=== PATIENT | male | born 1940 | race Caucasian/White ===

== ENCOUNTER 2017-04-07 01:59 | Emergency (ER) | payer MEDICARE, BC ==
[2017-04-07] MEDS ORDERED: Ketorolac 30 MG/ML SDV IVPUSH ONE (02:22)
[2017-04-07] MEDS ORDERED: Levofloxacin/Dextrose 5%-Water 500 MG in Premix Bag 1 BAG IV ONE (02:23)
[2017-04-07] MEDS ORDERED: Sodium Chloride 0.9% 1,000 ML IV SCH (02:30)
[2017-04-07] MEDS ORDERED: Iopamidol 755 Mg/ML 100 ML Bottle IV SCH (03:00)
[2017-04-07] MEDS ORDERED: Ciprofloxacin 500 MG Tab PO ONE (04:36)
[2017-04-07] MEDS ORDERED: Ketorolac 10 MG Tab PO ONE (04:36)
[2017-04-07 06:12] VITALS: BP 136/82
--- NOTE | 2017-04-07 09:39 | ER ---
DATE SEEN: 04/07/2017 CHIEF COMPLAINT: Flank pain. HISTORY OF PRESENT ILLNESS: A 76-year-old male with right-sided flank pain associated with dysuria and hematuria, started tonight. He had treatment for cancer earlier in the morning today. REVIEW OF SYSTEMS: No fever. No constipation. No nausea or vomiting. ALLERGIES: Reviewed. MEDICATIONS: Please see the nurse's notes. PHYSICAL EXAMINATION: VITAL SIGNS: Blood pressure 182/106, temperature 97.5, and pulse is 89. ABDOMEN: Distended. There is tenderness on the right lower quadrant with rebound, but no rigidity. Bowel sounds are present. LABORATORY DATA: Initial labs showed a white cell count of 11.2. Normal electrolytes. UA showed large blood. Leukocyte esterase, positive. Electrolytes were normal. CT of the abdomen and pelvis is pending. IMPRESSION: Hemorrhagic cystitis. PLAN: 1 L of normal saline. Ketorolac 15 mg IV, and Levaquin 500 mg one time dose. Symptoms improved dramatically. I sent him home on Cipro 500 twice a day and Toradol 10 mg t.i.d. p.r.n. to follow up with PCP in 24 hours. TIME SEEN: 0200 hours. /[id number] HIEN/TERRY
== END 2017-04-07 04:40 | disposition home or self-care (01) ==
LOC: FB.ED 01:59
DX: N30.90 Cystitis, unspecified without hematuria (principal)
CPT/HCPCS: 36415; 74176; 80048; 81001; 85025; 87086; 96365; 96375; 99284; A9270; J1885; J1956; J7040; Q9967; 99283

== ENCOUNTER 2017-11-20 10:50 | Emergency (ER) | payer MEDICARE, BC ==
[2017-11-20] MEDS ORDERED: Ketorolac 30 MG/ML SDV IM ONE (11:09)
--- NOTE | 2017-11-20 11:17 | EDM.PDOC ---
ED HPI GENERAL MEDICAL PROBLEM - General Chief Complaint: Lower Extremity Injury/Pain Stated Complaint: LEG PAIN Time Seen by Provider: 11/20/17 11:00 Source of Information: Reports: Patient History Limitations: Reports: No Limitations - History of Present Illness INITIAL COMMENTS - FREE TEXT/NARRATIVE: 77 yo male was referred by Dr. Calderon to orthopedics in [place] for hip pain. He saw the specialist and had CT's and MRI's and is scheduled for possible biopsy. He has been taking acetaminophen and Tylenol #3 for pain without adequate relief. He has been getting by walking with a walker. Is nearly out of his pain meds. Gets a little dopey with the Tyl #3. Is reluctant to take anything stronger for pain relief. Is not taking ibuprofen. Came to the ER because he could not get a hold of Dr. Calderon. Onset: Gradual Duration: Day(s): Location: Reports: Other (Bilateral groin pain, L > R) Quality: Reports: Ache Severity: Moderate Improves with: Reports: Rest Worsens with: Reports: Movement Context: Reports: Other (unknown cause) Associated Symptoms: Reports: No Other Symptoms Treatments FINANCIAL COMPLIANCE OFFICER: Reports: Other (see below) (Tylenol #3) - Related Data Allergies Allergy/AdvReac Type Severity Reaction Status Date / Time No Known Allergies Allergy Verified 11/20/17 11:15 Home Meds: Home Meds Simvastatin [Simvastatin] 40 mg PO DAILY 01/27/14 [History] metFORMIN [Glucophage] 500 mg PO BID 01/27/14 [History] Naproxen [Naprosyn] 500 mg PO ASDIRECTED PRN 01/13/15 [History] Fesoterodine Fumarate [Toviaz] 8 mg PO DAILY 04/07/17 [History] Tamsulosin HCl [Flomax] 0.4 mg PO DAILY PRN 04/07/17 [History] Hydrocodone/Acetaminophen [[place] 5-325] 1 tab PO Q4H PRN #30 tablet 11/20/17 [Rx ] Past Medical History Genitourinary History: Reports: Other (See Below) Other Genitourinary History: Bladder cancer Social & Family History - Tobacco Use Smoking Status *Q: Never Smoker Second Hand Smoke Exposure: No - Caffeine Use Caffeine Use: Reports: Coffee - Alcohol Use Days Per Week of Alcohol Use: 0 - Recreational Drug Use Recreational Drug Use: No Review of Systems - Review of Systems Review Of Systems: See Below Constitutional: Reports: No Symptoms Nose: Reports: No Symptoms Mouth/Throat: Reports: No Symptoms Respiratory: Reports: No Symptoms Cardiovascular: Reports: No Symptoms GI/Abdominal: Reports: No Symptoms Genitourinary: Reports: No Symptoms Musculoskeletal: Reports: Other (groin pain bilaterally) Skin: Reports: No Symptoms Neurological: Reports: No Symptoms Psychiatric: Reports: No Symptoms ED EXAM, GENERAL - Physical Exam Exam: See Below Exam Limited By: No Limitations General Appearance: Alert, WD/WN, No Apparent Distress Eye Exam: Bilateral Eye: Normal Inspection Ears: Normal External Exam, Normal Canal, Hearing Grossly Normal, Normal TMs Ear Exam: Bilateral Ear: Auricle Normal, Canal Normal, TM normal Nose: Normal Inspection, Normal Mucosa, No Blood Throat/Mouth: Normal Inspection, Normal Lips, Normal Oropharynx, Normal Voice, No Airway Compromise Head: Atraumatic, Normocephalic Neck: Normal Inspection Respiratory/Chest: No Respiratory Distress, Lungs Clear, Normal Breath Sounds, No Accessory Muscle Use Cardiovascular: Regular Rate, Rhythm GI/Abdominal: Other (Obese) Back Exam: Normal Inspection. No: CVA Tenderness (R), CVA Tenderness (L) Extremities: Normal Inspection, Other (Mild hip pain bilat with intact ROM, able to walk slowly) Neurological: Alert, Oriented, CN II-XII Intact, Normal Cognition, No Motor/ Sensory Deficits Psychiatric: Normal Affect, Normal Mood Skin Exam: Warm, Dry, Intact, Normal Color, No Rash Lymphatic: No Adenopathy Course - Vital Signs Text/Narrative:: Toradol 30 mg IM, [place] 1 po-feeling a lot better after these. Last Recorded V/S: Last Vital Signs Temp 36.5 C 11/20/17 10:55 Pulse 92 11/20/17 10:55 Resp 18 11/20/17 12:12 BP 161/93 H 11/20/17 12:12 Pulse Ox 99 11/20/17 12:12 - Orders/Labs/Meds Meds: Medications Discontinued Medications Generic Name Dose Route Start Last Admin Trade Name Freq PRN Reason Stop Dose Admin Hydrocodone Bitart/Acetaminophen 1 tab 11/20/17 11:18 11/20/17 11:24 [place] 325-5 Mg PO 11/20/17 11:19 1 tab ONETIME ONE Administration Ketorolac Tromethamine 30 mg 11/20/17 11:09 11/20/17 11:25 Toradol IM 11/20/17 11:10 30 mg ONETIME ONE Administration Departure - Departure Time of Disposition: 12:15 Disposition: Home, Self-Care 01 Condition: Good Clinical Impression: Pelvic pain in male - Discharge Information Prescriptions: Hydrocodone/Acetaminophen [[place] 5-325] 1 tab PO Q4H PRN #30 tablet PRN Reason: Pain Referrals: Jerome Calderon MD [Primary Care Provider] - Forms: ED Department Discharge
[2017-11-20] MEDS ORDERED: Acetaminophen/HYDROcodone 325-5 MG Tab PO ONE (11:18)
[2017-11-20 12:13] VITALS: BP 161/93
== END 2017-11-20 12:38 | disposition home or self-care (01) ==
LOC: FB.ED 10:50
DX: R10.2 Pelvic and perineal pain (principal)
CPT/HCPCS: 96372; 99282; A9270; J1885; 99283

== ENCOUNTER 2017-11-25 22:51 | Inpatient (IN) | payer MEDICARE, BC ==
[2017-11-25] MEDS ORDERED: Sodium Chloride 0.9% 1,000 ML IV SCH (23:15)
[2017-11-25] MEDS ORDERED: Iopamidol 755 Mg/ML 100 ML Bottle IV ONE (23:32)
[2017-11-26] MEDS: LORazepam 0.5 MG Tab PO PRN ×2 (01:20→19:59)
[2017-11-26] MEDS: Ketorolac 30 MG/ML SDV IVPUSH PRN ×3 (01:25→18:35)
[2017-11-26] MEDS: Enoxaparin 30 MG/0.3 ML Syringe SUBCUT SCH (01:30)
--- NOTE | 2017-11-26 03:53 | ER ---
DATE SEEN: 11/25/2017 CHIEF COMPLAINT: Hip pain. HISTORY OF PRESENT ILLNESS: This is a 77-year-old male who came in by ambulance. He complains of severe pain in the left groin and left lower quadrant abdominal pain. These symptoms have been going on since the beginning of the year, perhaps even longer. He was seen in the ER on the in [place] and had a CAT scan that was negative, but there was some concern on an MRI that he has had previously with pelvic lymphadenopathy. He had an IR biopsy yesterday, but his pain today got worse to the point that he was unable to move. Does not seem to radiate anywhere. PAST MEDICAL HISTORY: Type 2 diabetes, diverticulosis, hyperlipidemia. ALLERGIES: No known allergies. PHYSICAL EXAMINATION: GENERAL: He is not in distress. VITAL SIGNS: Blood pressure 176/94, pulse is 92. MUSCULOSKELETAL: Examination reveals tenderness in the left trochanteric bursa. ABDOMEN: Soft with tenderness in the left lower quadrant. MENTAL STATUS: Alert. LABORATORY DATA: I reviewed the labs that were done at [place] including the CT scan and ER record from the . IMPRESSION: 1. Pelvic pain, left. 2. Groin pain. PLAN: We will admit the patient for further treatment and pain control. I will order a CBC, basic profile, CT scan, and amylase. Please see history and physical for more details of the admission. TIME SEEN: 2300 hours. /[id number] HIEN/TERRY
[2017-11-26] MEDS: traMADol 50 MG Tab PO PRN ×4 (05:03→21:23)
[2017-11-26] MEDS ORDERED: Triamcinolone Acetonide 40 MG/ML 1 ML MDV ONE (05:05)
[2017-11-26] MEDS ORDERED: Triamcinolone Acetonide 40 MG/ML 1 ML MDV IBURSA ONE (07:30)
[2017-11-26] MEDS ORDERED: Lidocaine 2% 10 ML Amp INJECT ONE (07:30)
[2017-11-26] MEDS ORDERED: Lidocaine 2% 20 ML MDV INJECT ONE (08:30)
--- NOTE | 2017-11-26 08:53 | PCM.HP ---
H&P History of Present Illness - General Date of Service: 11/26/17 Admit Problem/Dx: Admission Diagnosis/Problem Admission Diagnosis/Problem Hip pain Source of Information: Patient, Old Records - History of Present Illness Initial Comments - Free Text/Narative: 77-year-old male I personally admitted last night through the ER because of pelvic and left hip pain. The symptoms are chronic. He was seen at [place] [facility] 2 weeks ago no acute findings were found to explain the pain- however he had pelvic lymphadenopathy. Subsequently 2 days ago he had interventional radiology biopsy,and results of pending those lymph nodes. At home last night, he was unable to move because of the pain.He called the ambulance- the pain is significant on any ambulation or movement ,but it's improved by ketorolac.Of note, He was the ER 2 days ago and was given Tylenol 3 but does not recent help. He denies trauma. He has no constipation or diarrhea & no fever chills. He has a history of BPH,prostate cancer years ago,anxiety ostensibly stable. Left Groin Pain Score (Numeric/FACES): 5 - Related Data Allergies/Adverse Reactions: Allergies Allergy/AdvReac Type Severity Reaction Status Date / Time No Known Allergies Allergy Verified 11/20/17 11:15 Home Medications: Home Meds Simvastatin [Simvastatin] 40 mg PO DAILY 01/27/14 [History] metFORMIN [Glucophage] 500 mg PO BID 01/27/14 [History] Naproxen [Naprosyn] 500 mg PO ASDIRECTED PRN 01/13/15 [History] Fesoterodine Fumarate [Toviaz] 8 mg PO DAILY 04/07/17 [History] Hydrocodone/Acetaminophen [[place] 5-325] 1 tab PO Q4H PRN #30 tablet 11/20/17 [Rx ] Past Medical History Cardiovascular History: Reports: High Cholesterol Gastrointestinal History: Reports: Colon Polyp Genitourinary History: Reports: Other (See Below) Other Genitourinary History: Bladder cancer Endocrine/Metabolic History: Reports: Diabetes, Type II Oncologic (Cancer) History: Reports: Bladder, Other (See Below) Other Oncologic History: skin - Infectious Disease History Infectious Disease History: Reports: Rheumatic Fever - Past Surgical History GI Surgical History: Reports: Colonoscopy Male Surgical History: Reports: Other (See Below) Other Male Surgeries/Procedures: laser prostatem surgery-10 years ago Musculoskeletal Surgical History: Reports: Other (See Below) Other Musculoskeletal Surgeries/Procedures:: lumbar fusion 1965 Oncologic Surgical History: Reports: Other (See Below) Other Oncologic Surgeries/Procedures: bladder biopsy Dermatological Surgical History: Reports: Other (See Below) Social & Family History - Family History Family Medical History: Noncontributory - Tobacco Use Smoking Status *Q: Never Smoker Used Tobacco, but Quit: Yes Month Tobacco Last Used: unknown Second Hand Smoke Exposure: No - Caffeine Use Caffeine Use: Reports: Coffee Caffeine Use Comment: 2 cups a day - Alcohol Use Days Per Week of Alcohol Use: 0 - Recreational Drug Use Recreational Drug Use: No H&P Review of Systems - Review of Systems: Review Of Systems: ROS reveals no pertinent complaints other than HPI. Exam - Exam Exam: See Below - Vital Signs Vital Signs: Last Vital Signs Temp 97.5 F 11/25/17 23:27 Pulse 78 11/25/17 23:27 Resp 18 11/25/17 23:27 BP 143/89 H 11/25/17 23:27 Pulse Ox 94 L 11/25/17 23:27 Weight: 113.988 kg - Exam General: Alert, Oriented, 4 HEENT: PERRLA, Hearing Intact, Mucosa Moist & [place], Nares Patent, Normal Nasal Septum, Posterior Pharynx Clear, Conjunctiva Clear, EOMI, EACs Clear, TMs Clear Neck: Supple, Trachea Midline, 2 Lungs: Clear to Auscultation, Normal Respiratory Effort Cardiovascular: Regular Rate, Regular Rhythm GI/Abdominal Exam: Tender (LLQ) (Male) Exam: No Hernia, Normal Inspection, Normal Prostate, Circumcised Rectal (Males) Exam: Normal Exam, Normal Rectal Tone, Prostate Normal Back Exam: Normal Inspection, Full Range of Motion, NT Extremities: Other (Tender left Trochanteric Bursa). No: Pedal Edema Skin: Warm, Dry, Intact Neurological: Cranial Nerves Intact, Reflexes Equal Bilateral Neuro Extensive - Mental Status: Alert, Oriented x3, Normal Mood/Affect, Normal Cognition Neuro Extensive - Motor, Sensory, Reflexes: CN II-XII Intact, Normal Gait, Normal Reflexes Psychiatric: Alert, Normal Affect, Normal Mood - Patient Data Lab Results Last 24 hrs: Laboratory Results - last 24 hr 11/26/17 Range/Units 06:28 POC Glucose 136 H (80-116) mg/dL Result Diagrams: 11/25/17 23:20 11/25/17 23:20 *Q Meaningful Use (ADM) - VTE *Q VTE Criteria *Q: - Stroke *Q Stroke Criteria *Q: - AMI *Q AMI Criteria *Q: - Problem List (1) LLQ abdominal pain SNOMED Code(s): 580448289 ICD Code: R10.32 - LEFT LOWER QUADRANT PAIN Status: Acute Current Visit: Yes (2) Trochanteric bursitis of left hip SNOMED Code(s): 0611886 ICD Code: M70.62 - TROCHANTERIC BURSITIS, LEFT HIP Status: Acute Current Visit: Yes (3) Diverticulosis SNOMED Code(s): 81922330 ICD Code: K57.90 - DVRTCLOS OF INTEST, PART UNSP, W/O PERF OR ABSCESS W/O BLEED Status: Acute Current Visit: Yes Qualifiers: Diverticulosis site: diverticulosis of large intestine (4) Obesity SNOMED Code(s): 409697659 ICD Code: E66.9 - OBESITY, UNSPECIFIED Status: Acute Current Visit: Yes (5) KIERA (generalized anxiety disorder) SNOMED Code(s): 94229083 ICD Code: F41.1 - GENERALIZED ANXIETY DISORDER Status: Acute Current Visit: Yes (6) BPH (benign prostatic hyperplasia) SNOMED Code(s): 875554007 ICD Code: N40.0 - BENIGN PROSTATIC HYPERPLASIA WITHOUT LOWER URINRY TRACT SYMP Status: Acute Current Visit: Yes Qualifiers: Lower urinary tract symptom presence: symptoms present (7) Pelvic lymphadenopathy SNOMED Code(s): 496560352 ICD Code: R59.0 - LOCALIZED ENLARGED LYMPH NODES Status: Acute Current Visit: Yes (8) HLD (hyperlipidemia) SNOMED Code(s): 30656474 ICD Code: E78.5 - HYPERLIPIDEMIA, UNSPECIFIED Status: Acute Current Visit : Yes Problem List Initiated/Reviewed/Updated: Yes Orders Last 24hrs: Active Orders 24 hr Category Date Time Status LORazepam [Ativan] Med 11/26/17 00:32 Active 0.5 mg PO Q4H PRN Medication Orders Enoxaparin Sodium (Lovenox) 30 mg SUBCUT Q24H [facility] Last Admin: 11/26/17 01:30 Dose: 30 mg Sodium Chloride (Normal Saline) 1,000 mls @ 125 mls/hr IV ASDIRECTED TOMMY Last Admin: 11/26/17 01:18 Dose: 125 mls/hr Ketorolac Tromethamine (Toradol) 15 mg IVPUSH Q6H PRN PRN Reason: Breakthrough Pain Stop: 11/30/17 23:30 Last Admin: 11/26/17 01:25 Dose: 15 mg Lorazepam (Ativan) 0.5 mg PO Q4H PRN PRN Reason: Anxiety Last Admin: 11/26/17 01:20 Dose: 0.5 mg Tramadol HCl (Ultram) 50 mg PO Q4H PRN PRN Reason: Pain Last Admin: 11/26/17 05:03 Dose: 50 mg Assessment/Plan Comment:: He has localized tenderness in the left trochanteric bursa. I'm convinced that he pain is due to the fact. I reviewed an x-ray that was done at [place], that was negative for any arthritis Of the hip. The left lower quadrant pain is cryptic. Etiology at this time is unlear. The CT done in [place] on the ly showed pelvic lymphadenopathy, and advanced diverticulosis without evidence of diverticulitis. For now I'll treat his pain with ketorolac I will discontinue the IV fluids. I discussed indications of a corticosteroid injection to the left hip trochanteric bursa area,as well as reasonable alternatives, and he accepted. I prepped the area, injected 80 mg of Kenalog mixed with 2% lidocaine into the left trochanteric bursa. There were no complications .I will ask physical therapy to see him tomorrow for ambulation and strengthening. I will do a CT scan today of the pelvis and abdomen to rule out diverticulitis or any other new pathology.
[2017-11-26] MEDS: Sodium Chloride 0.9% 10 ML Syringe FLUSH PRN ×3 (09:32→22:32)
[2017-11-26] MEDS: Insulin Aspart 100 Units/ML 3 ML Pen SUBCUT SCH ×2 (11:31→17:30)
[2017-11-26] MEDS: Morphine 2 MG/ML Syringe IVPUSH PRN (22:33)
[2017-11-27] MEDS: Enoxaparin 30 MG/0.3 ML Syringe SUBCUT SCH (00:32)
[2017-11-27] MEDS: Ketorolac 30 MG/ML SDV IVPUSH PRN (00:33)
[2017-11-27] MEDS: Sodium Chloride 0.9% 10 ML Syringe FLUSH PRN ×4 (00:35→21:41)
[2017-11-27] MEDS: Morphine 2 MG/ML Syringe IVPUSH PRN (06:11)
[2017-11-27] MEDS: Insulin Aspart 100 Units/ML 3 ML Pen SUBCUT SCH ×3 (08:56→18:18)
[2017-11-27] MEDS: traMADol 50 MG Tab PO PRN ×4 (09:04→23:58)
[2017-11-27] MEDS: Ketorolac 15 MG/ML SDV IVPUSH PRN ×3 (09:05→21:40)
[2017-11-27] MEDS: LORazepam 0.5 MG Tab PO PRN ×3 (09:05→23:59)
--- NOTE | 2017-11-27 09:31 | PCM.PN ---
- General Info Date of Service: 11/27/17 Subjective Update: Patient's still has pain but it's mostly on ambulation. Is able to stand move with a walker with one assist. No new symptoms this morning. Functional Status: Reports: Pain Controlled - Review of Systems General: Reports: No Symptoms HEENT: Reports: No Symptoms Pulmonary: Reports: No Symptoms Cardiovascular: Reports: No Symptoms Gastrointestinal: Reports: No Symptoms - Patient Data Vitals - Most Recent: Last Vital Signs Temp 98.5 F 11/27/17 06:00 Pulse 82 11/27/17 06:00 Resp 18 11/27/17 06:00 BP 165/103 H 11/27/17 06:00 Pulse Ox 97 11/27/17 06:00 Weight - Most Recent: 112.128 kg I&O - Last 24 Hours: Intake & Output 11/26/17 11/27/17 11/27/17 22:59 06:59 14:59 Intake Total 300 Output Total 350 275 Balance -350 25 Lab Results Last 24 Hours: Laboratory Results - last 24 hr 11/26/17 11/26/17 11/27/17 Range/Units 11:27 17:27 06:03 POC Glucose 118 H 122 H 114 (80-116) mg/dL Med Orders - Current: Current Medications Enoxaparin Sodium (Lovenox) 40 mg SUBCUT Q24H TOMMY Insulin Aspart (Novolog) 0 unit SUBCUT TIDMEALS TOMMY PRN Reason: Protocol Last Admin: 11/27/17 08:56 Dose: Not Given Ketorolac Tromethamine (Toradol) 15 mg IVPUSH Q6H PRN PRN Reason: Breakthrough Pain Stop: 11/30/17 23:30 Last Admin: 11/27/17 09:05 Dose: 15 mg Lorazepam (Ativan) 0.5 mg PO Q4H PRN PRN Reason: Anxiety Last Admin: 11/27/17 09:05 Dose: 0.5 mg Morphine Sulfate (Morphine) 2 mg IVPUSH Q4H PRN PRN Reason: Pain Last Admin: 11/27/17 06:11 Dose: 2 mg Sodium Chloride (Saline Flush) 10 ml FLUSH ASDIRECTED PRN PRN Reason: Keep Vein Open Last Admin: 11/27/17 09:05 Dose: 10 ml Tramadol HCl (Ultram) 50 mg PO Q4H PRN PRN Reason: Pain Last Admin: 11/27/17 09:04 Dose: 50 mg Discontinued Medications Enoxaparin Sodium (Lovenox) 30 mg SUBCUT Q24H [facility] Last Admin: 11/27/17 00:32 Dose: 30 mg Sodium Chloride (Normal Saline) 1,000 mls @ 125 mls/hr IV ASDIRECTED [facility] Last Admin: 11/26/17 01:18 Dose: 125 mls/hr Iopamidol (Isovue-370 (76%)) 100 ml IV . DIRECTED ONE Stop: 11/25/17 23:33 Last Admin: 11/26/17 11:08 Dose: 100 ml Ketorolac Tromethamine (Toradol) 15 mg IVPUSH Q6H PRN PRN Reason: Breakthrough Pain Stop: 11/30/17 23:30 Last Admin: 11/27/17 00:33 Dose: 15 mg Lidocaine HCl (Xylocaine-Mpf 2% (Sterile-Dustin)) 10 ml INJECT ONETIME ONE Stop: 11/26/17 07:31 Last Admin: 11/26/17 08:40 Dose: Not Given Lidocaine HCl (Xylocaine 2%) 10 ml INJECT ONETIME ONE Stop: 11/26/17 08:31 Last Admin: 11/26/17 08:29 Dose: 10 ml Triamcinolone Acetonide (Kenalog-40) 80 mg IBURSA ONETIME ONE Stop: 11/26/17 07:31 Last Admin: 11/26/17 08:21 Dose: 80 mg Triamcinolone Acetonide (Kenalog-40) Confirm Administered Dose 80 mg .ROUTE .STK -MED ONE Stop: 11/26/17 05:06 Last Admin: 11/26/17 07:06 Dose: Not Given - Exam General: Alert, Oriented HEENT: Pupils Equal Neck: Supple - Problem List & Annotations (1) LLQ abdominal pain SNOMED Code(s): 485417267 Code(s): R10.32 - LEFT LOWER QUADRANT PAIN Status: Acute Current Visit: Yes (2) Trochanteric bursitis of left hip SNOMED Code(s): 5473111 Code(s): M70.62 - TROCHANTERIC BURSITIS, LEFT HIP Status: Acute Current Visit: Yes (3) Diverticulosis SNOMED Code(s): 92623515 Code(s): K57.90 - DVRTCLOS OF INTEST, PART UNSP, W/O PERF OR ABSCESS W/O BLEED Status: Acute Current Visit: Yes Qualifiers: Diverticulosis site: diverticulosis of large intestine (4) Obesity SNOMED Code(s): 913050715 Code(s): E66.9 - OBESITY, UNSPECIFIED Status: Acute Current Visit: Yes (5) KIERA (generalized anxiety disorder) SNOMED Code(s): 23614972 Code(s): F41.1 - GENERALIZED ANXIETY DISORDER Status: Acute Current Visit : Yes (6) BPH (benign prostatic hyperplasia) SNOMED Code(s): 551517588 Code(s): N40.0 - BENIGN PROSTATIC HYPERPLASIA WITHOUT LOWER URINRY TRACT SYMP Status: Acute Current Visit: Yes Qualifiers: Lower urinary tract symptom presence: symptoms present (7) Pelvic lymphadenopathy SNOMED Code(s): 969353778 Code(s): R59.0 - LOCALIZED ENLARGED LYMPH NODES Status: Acute Current Visit: Yes (8) HLD (hyperlipidemia) SNOMED Code(s): 50056569 Code(s): E78.5 - HYPERLIPIDEMIA, UNSPECIFIED Status: Acute Current Visit : Yes - Problem List Review Problem List Initiated/Reviewed/Updated: Yes - My Orders Last 24 Hours: My Active Orders 11/26/17 09:28 Sodium Chloride 0.9% [Saline Flush] 10 ml FLUSH ASDIRECTED PRN 11/26/17 12:00 Insulin Aspart [NovoLOG] See Protocol SUBCUT TIDMEALS 11/27/17 08:00 Ketorolac [Toradol] 15 mg IVPUSH Q6H PRN 11/27/17 09:21 FREE PSA BATTERY [REF] Routine PROTEIN ELECTROPHORESIS,SERUM [REF] Routine 11/27/17 21:00 Enoxaparin [Lovenox] 40 mg SUBCUT Q24H - Plan Plan:: I called [facility] and spoke to the hospitalist Dr. Palacios. 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 After discussion with the radiologist and oncologist, they've advised me to keep him if one more day until the final report is out possibly tomorrow. At that time they can which admission service to tkae him,and to [facility].For now we'll keep him on pain medication until that time. Dr. Palacios recommended obtain serum electrophoresis and a PSA in addition to the workup he has had.
[2017-11-27] MEDS: Magnesium Hydroxide 400 MG/5 ML Susp 30 ML Cup PO PRN (20:53)
[2017-11-27] MEDS ORDERED: Enoxaparin 40 MG/0.4 ML Syringe SUBCUT SCH (21:00)
[2017-11-28] MEDS: Morphine 2 MG/ML Syringe IVPUSH PRN (04:48)
[2017-11-28] MEDS: traMADol 50 MG Tab PO PRN ×2 (04:49→08:37)
[2017-11-28] MEDS: Sodium Chloride 0.9% 10 ML Syringe FLUSH PRN ×2 (04:49→06:49)
[2017-11-28] MEDS: Ketorolac 15 MG/ML SDV IVPUSH PRN (06:48)
[2017-11-28] MEDS: Insulin Aspart 100 Units/ML 3 ML Pen SUBCUT SCH (08:29)
[2017-11-28] MEDS: Magnesium Hydroxide 400 MG/5 ML Susp 30 ML Cup PO PRN (08:36)
[2017-11-28] MEDS: LORazepam 0.5 MG Tab PO PRN (08:36)
--- NOTE | 2017-11-28 09:23 | PCM.PN ---
- General Info Date of Service: 11/28/17 Subjective Update: Patient very tearful this morning. His pain is still the same and is unable to support himself without a walker or assistance. - Review of Systems General: Reports: No Symptoms HEENT: Reports: No Symptoms Pulmonary: Reports: No Symptoms - Patient Data Vitals - Most Recent: Last Vital Signs Temp 98.2 F 11/28/17 00:05 Pulse 83 11/28/17 00:05 Resp 18 11/28/17 00:05 BP 162/106 H 11/28/17 00:05 Pulse Ox 94 L 11/28/17 00:05 Weight - Most Recent: 112.236 kg I&O - Last 24 Hours: Intake & Output 11/27/17 11/28/17 11/28/17 22:59 06:59 14:59 Intake Total 100 440 Output Total 100 100 50 Balance -100 0 390 Lab Results Last 24 Hours: Laboratory Results - last 24 hr 11/27/17 11/27/17 11/28/17 Range/Units 13:57 17:30 07:46 POC Glucose 172 H 109 130 H (80-116) mg/dL Med Orders - Current: Current Medications Enoxaparin Sodium (Lovenox) 40 mg SUBCUT Q24H TOM[facility] Last Admin: 11/27/17 20:53 Dose: 40 mg Insulin Aspart (Novolog) 0 unit SUBCUT TIDMEALS [facility]OM[facility] PRN Reason: Protocol Last Admin: 11/28/17 08:29 Dose: Not Given Ketorolac Tromethamine (Toradol) 15 mg IVPUSH Q6H PRN PRN Reason: Breakthrough Pain Stop: 11/30/17 23:30 Last Admin: 11/28/17 06:48 Dose: 15 mg Lorazepam (Ativan) 0.5 mg PO Q4H PRN PRN Reason: Anxiety Last Admin: 11/28/17 08:36 Dose: 0.5 mg Magnesium Hydroxide (Milk Of Magnesia) 30 ml PO DAILY PRN PRN Reason: Constipation Last Admin: 11/28/17 08:36 Dose: 30 ml Morphine Sulfate (Morphine) 2 mg IVPUSH Q4H PRN PRN Reason: Pain Last Admin: 11/28/17 04:48 Dose: 2 mg Sodium Chloride (Saline Flush) 10 ml FLUSH ASDIRECTED PRN PRN Reason: Keep Vein Open Last Admin: 11/28/17 06:49 Dose: 10 ml Tramadol HCl (Ultram) 50 mg PO Q4H PRN PRN Reason: Pain Last Admin: 11/28/17 08:37 Dose: 50 mg Discontinued Medications Enoxaparin Sodium (Lovenox) 30 mg SUBCUT Q24H [facility] Last Admin: 11/27/17 00:32 Dose: 30 mg Sodium Chloride (Normal Saline) 1,000 mls @ 125 mls/hr IV ASDIRECTED [facility] Last Admin: 11/26/17 01:18 Dose: 125 mls/hr Iopamidol (Isovue-370 (76%)) 100 ml IV . DIRECTED ONE Stop: 11/25/17 23:33 Last Admin: 11/26/17 11:08 Dose: 100 ml Ketorolac Tromethamine (Toradol) 15 mg IVPUSH Q6H PRN PRN Reason: Breakthrough Pain Stop: 11/30/17 23:30 Last Admin: 11/27/17 00:33 Dose: 15 mg Lidocaine HCl (Xylocaine-Mpf 2% (Sterile-Dustin)) 10 ml INJECT ONETIME ONE Stop: 11/26/17 07:31 Last Admin: 11/26/17 08:40 Dose: Not Given Lidocaine HCl (Xylocaine 2%) 10 ml INJECT ONETIME ONE Stop: 11/26/17 08:31 Last Admin: 11/26/17 08:29 Dose: 10 ml Triamcinolone Acetonide (Kenalog-40) 80 mg IBURSA ONETIME ONE Stop: 11/26/17 07:31 Last Admin: 11/26/17 08:21 Dose: 80 mg Triamcinolone Acetonide (Kenalog-40) Confirm Administered Dose 80 mg .ROUTE .STK -MED ONE Stop: 11/26/17 05:06 Last Admin: 11/26/17 07:06 Dose: Not Given - Exam General: Alert, Oriented Neck: Supple Psy/Mental Status: Depressed - Problem List & Annotations (1) LLQ abdominal pain SNOMED Code(s): 852372373 Code(s): R10.32 - LEFT LOWER QUADRANT PAIN Status: Acute Current Visit: Yes (2) Trochanteric bursitis of left hip SNOMED Code(s): 6492749 Code(s): M70.62 - TROCHANTERIC BURSITIS, LEFT HIP Status: Acute Current Visit: Yes (3) Diverticulosis SNOMED Code(s): 64650836 Code(s): K57.90 - DVRTCLOS OF INTEST, PART UNSP, W/O PERF OR ABSCESS W/O BLEED Status: Acute Current Visit: Yes Qualifiers: Diverticulosis site: diverticulosis of large intestine (4) Obesity SNOMED Code(s): 146580352 Code(s): E66.9 - OBESITY, UNSPECIFIED Status: Acute Current Visit: Yes (5) KIERA (generalized anxiety disorder) SNOMED Code(s): 12865481 Code(s): F41.1 - GENERALIZED ANXIETY DISORDER Status: Acute Current Visit : Yes (6) BPH (benign prostatic hyperplasia) SNOMED Code(s): 541929443 Code(s): N40.0 - BENIGN PROSTATIC HYPERPLASIA WITHOUT LOWER URINRY TRACT SYMP Status: Acute Current Visit: Yes Qualifiers: Lower urinary tract symptom presence: symptoms present (7) Pelvic lymphadenopathy SNOMED Code(s): 176430527 Code(s): R59.0 - LOCALIZED ENLARGED LYMPH NODES Status: Acute Current Visit: Yes (8) HLD (hyperlipidemia) SNOMED Code(s): 25635942 Code(s): E78.5 - HYPERLIPIDEMIA, UNSPECIFIED Status: Acute Current Visit : Yes - Problem List Review Problem List Initiated/Reviewed/Updated: Yes - My Orders Last 24 Hours: My Active Orders 11/27/17 10:05 FREE PSA BATTERY [REF] Routine PROTEIN ELECTROPHORESIS,SERUM [REF] Routine 11/27/17 19:38 Magnesium Hydroxide [Milk of Magnesia] 30 ml PO DAILY PRN 11/27/17 21:00 Enoxaparin [Lovenox] 40 mg SUBCUT Q24H - Plan Plan:: I checked the [facility] chart and noticed that the pathology restuls 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 I called urology who recommended consultation with oncology. I will have a discussion with the hospitalist and will be transferring the patient to [place] for further testing/treatment
[2017-11-28 09:38] VITALS: BP 138/96
--- NOTE | 2017-11-28 16:55 | DISCH ---
DISCHARGE DATE: 11/28/2017 REASON FOR ADMISSION: 1. Pelvic pain. 2. History of bladder cancer.Recurring Now 3. Trochanteric bursitis. DISCHARGE DIAGNOSES: 1. Pelvic pain. Secondary to Metastasstais 2. History of bladder cancer. 3. Trochanteric bursitis. CONSULTATIONS: Hematology/Oncology. BRIEF HISTORY: This is a 77-year-old male who recently has had chronic pain in the left lower quadrant of the abdomen and the left hip. He was admitted through the ER because of worsening pain and inability to ambulate independently. 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 A CT that was done here in the hospital revealed some sclerotic lesions in the acetabulum. I consulted with Oncology, and they preferred the patient to be transferred for further workup with bone scan, perhaps another biopsy at [place]. I spent more than 35 minutes in the discharge of the patient. /[id number] HIEN/TERRY LIMON
== END 2017-11-28 11:05 | DRG 687 ==
LOC: FB.ED 22:51 → UNDOADMIN 23:22 → FB.MS 23:22
PROVIDERS: ADMIT Family Medicine; ATTEND Family Medicine
PROC: 3E0U33Z Introduction of Anti-inflammatory into Joints, Percutaneous Approach (ICD-10-PCS; principal; 2017-11-26)
PROC: 3E0U3BZ Introduction of Anesthetic Agent into Joints, Percutaneous Approach (ICD-10-PCS; 2017-11-26)
DX: M25.552 Pain in left hip (principal); C67.9 Malignant neoplasm of bladder, unspecified; C79.9 Secondary malignant neoplasm of unspecified site; R59.0 Localized enlarged lymph nodes; M70.62 Trochanteric bursitis, left hip; E11.9 Type 2 diabetes mellitus without complications; Z79.84 Long term (current) use of oral hypoglycemic drugs; E78.5 Hyperlipidemia, unspecified; K57.90 Diverticulosis of intestine, part unspecified, without perforation or abscess without bleeding; N40.0 Benign prostatic hyperplasia without lower urinary tract symptoms; R10.2 Pelvic and perineal pain; R10.32 Left lower quadrant pain; E66.9 Obesity, unspecified; F41.1 Generalized anxiety disorder; Z68.35 Body mass index [BMI] 35.0-35.9, adult; Z98.1 Arthrodesis status
CPT/HCPCS: 36415; 71260; 74177; 80048; 82150; 82962; 83605; 84153; 84154; 84165; 85025; 85651; 97116-GP; 97140-GP; 97161-GP; 97166-GO; 97535-GO; 99283; 99285; A9270-GY; J1650; J1885; J2270; J3301; J7030; J7050; Q9967

== ENCOUNTER 2017-12-07 08:08 | Inpatient (IN) | payer MEDICARE, BC ==
[2017-12-07] MEDS: Aluminum Hydroxide/Magnesium Hydroxide Susp 30 ML Cup PO PRN ×2 (16:48→22:16)
[2017-12-07] MEDS: Enoxaparin 30 MG/0.3 ML Syringe SUBCUT SCH (20:53)
[2017-12-07] MEDS: Morphine 30 MG Tab.ER PO SCH (20:54)
[2017-12-07] MEDS: Simvastatin 20 MG Tab PO SCH (20:54)
[2017-12-07] MEDS: LORazepam 0.5 MG Tab PO PRN (22:17)
[2017-12-08] MEDS: Aluminum Hydroxide/Magnesium Hydroxide Susp 30 ML Cup PO PRN (01:47)
[2017-12-08] MEDS: oxyCODONE 5 MG Tab PO PRN ×2 (01:48→08:17)
[2017-12-08] MEDS: Calcium Carbonate/Vitamin D3 1250 MG-200 Unit Tab PO SCH ×2 (08:20→18:59)
[2017-12-08] MEDS: Dexamethasone 4 MG Tab PO SCH (08:21)
[2017-12-08] MEDS: Fesoterodine Fumarate 4 MG Tab PO SCH (08:22)
[2017-12-08] MEDS: OLANZapine 5 MG Tab PO SCH (08:22)
[2017-12-08] MEDS: Morphine 30 MG Tab.ER PO SCH ×2 (08:47→20:47)
--- NOTE | 2017-12-08 09:24 | PREOP ---
ADMISSION DATE: 12/07/2017 REASON FOR VISIT: Metastatic bladder cancer, rehab, and intervention. HISTORY OF PRESENT ILLNESS: Vidal Marion is a 77-year-old male, [place], [place] resident, was a transfer from [facility] to [facility]Note 3] for swing bed and rehab therapy. Recent complicated pain resulted in diagnosis of metastatic bladder cancer with bone metastasis, accompanying he had left hip pain secondary to metastatic disease, weakness, and deconditioning. Please see discharge hospital summary, 11/28/2017 to 12/07/2017. Dr. Leonardo Quintana, Hematology, Oncology, Internal Medicine, primary provider. Completed his course of radiation, chemotherapy will be planned for a weekly basis. Feeling much better, strength is improving, comfort and well being included. DISCHARGE MEDICATIONS: Please see med recon list per [facility]. Includin. Calcium citrate. 2. Dexamethasone. 3. Magnesium hydroxide. 4. Morphine sulfate. 5. Zofran. 6. Oxycodone immediate release. 7. MiraLax powder. 8. Compazine for nausea. 9. Senna-S stool softener. 10.Metformin. 11.Toviaz. 12.Simvastatin. 13.Tylenol with codeine. 14.Aspirin. 15.Meloxicam. 16.Tamsulosin. ALLERGIES: No known allergies. PAST MEDICAL HISTORY: Significant for recurrent evaluations and investigation for bladder cancer dating back to 2014. He had previous lumbar back surgery in 1994, and prostate PPV in the past. Colonoscopy is up-to-date. Chronic illnesses include BPH, diabetes mellitus, hyperlipidemia. SOCIAL HISTORY: Lives alone, significant partner, works in the [employer] business. Remote smoker, quit, [id number], 1979, no alcohol consumption. No illicit drug use. FAMILY HISTORY: Negative for early heart disease, diabetes mellitus, or inheritable cancers. VACCINATIONS: Pneumococcal 13 and 23, and DTaP up-to-date. REVIEW OF SYSTEMS: CONSTITUTIONAL: Under duress. Weepy on occasion. HEENT: Funduscopic benign. Bright TMs. Clear nasal discharge. Mouth and oropharynx clear. Fair dentition. NECK: Benign. Thyroid small. No adenopathy. CHEST: On auscultation, clear in all lung chaudhari. HEART: On auscultation, no ectopy or significant murmur. S4 present. ABDOMEN: Rotund. No hepatosplenomegaly. AND RECTAL: Deferred. EXTREMITIES: Well perfused. Moderate edema. IMPRESSION: Metastatic urethral carcinoma. PLAN: Admission for comfort measures, pain control, ambulation, PT, and intervention. Followup treatments planned at [facility] on a timely basis. /[id number] BRENDA/TERRY
[2017-12-08] MEDS: Enoxaparin 30 MG/0.3 ML Syringe SUBCUT SCH (20:47)
[2017-12-08] MEDS: Magnesium Hydroxide 400 MG/5 ML Susp 30 ML Cup PO PRN (20:49)
[2017-12-08] MEDS: LORazepam 0.5 MG Tab PO PRN (20:49)
[2017-12-08] MEDS: Simvastatin 20 MG Tab PO SCH (20:49)
[2017-12-09] MEDS: oxyCODONE 5 MG Tab PO PRN ×3 (01:40→19:01)
[2017-12-09] MEDS: Calcium Carbonate/Vitamin D3 1250 MG-200 Unit Tab PO SCH ×2 (09:27→18:50)
[2017-12-09] MEDS: Fesoterodine Fumarate 4 MG Tab PO SCH (09:28)
[2017-12-09] MEDS: OLANZapine 5 MG Tab PO SCH (09:29)
[2017-12-09] MEDS: Dexamethasone 4 MG Tab PO SCH (09:29)
[2017-12-09] MEDS: Morphine 30 MG Tab.ER PO SCH ×2 (09:32→21:30)
[2017-12-09] MEDS: Polyethylene Glycol 3350 Powder 17 GM Packet PO PRN (19:00)
[2017-12-09] MEDS: LORazepam 0.5 MG Tab PO PRN (21:23)
[2017-12-09] MEDS: Enoxaparin 30 MG/0.3 ML Syringe SUBCUT SCH (21:24)
[2017-12-09] MEDS: Simvastatin 20 MG Tab PO SCH (21:25)
[2017-12-09] MEDS ORDERED: Bisacodyl 10 MG Supp RECTAL PRN (23:43)
[2017-12-10] MEDS: oxyCODONE 5 MG Tab PO PRN ×4 (00:14→20:25)
[2017-12-10] MEDS: Calcium Carbonate/Vitamin D3 1250 MG-200 Unit Tab PO SCH ×2 (08:35→17:50)
[2017-12-10] MEDS: Fesoterodine Fumarate 4 MG Tab PO SCH (08:37)
[2017-12-10] MEDS: Polyethylene Glycol 3350 Powder 17 GM Packet PO SCH (08:47)
[2017-12-10] MEDS: Morphine 30 MG Tab.ER PO SCH ×2 (08:47→20:25)
[2017-12-10] MEDS: Prochlorperazine 10 MG Tab PO PRN (15:48)
[2017-12-10] MEDS: LORazepam 0.5 MG Tab PO PRN (20:25)
[2017-12-10] MEDS: Enoxaparin 30 MG/0.3 ML Syringe SUBCUT SCH (20:26)
[2017-12-10] MEDS: Simvastatin 20 MG Tab PO SCH (20:26)
[2017-12-11] MEDS: LORazepam 0.5 MG Tab PO PRN ×4 (01:30→22:32)
[2017-12-11] MEDS: oxyCODONE 5 MG Tab PO PRN ×6 (01:30→22:33)
[2017-12-11] MEDS: Fesoterodine Fumarate 4 MG Tab PO SCH (08:40)
[2017-12-11] MEDS: Calcium Carbonate/Vitamin D3 1250 MG-200 Unit Tab PO SCH ×2 (08:40→18:49)
[2017-12-11] MEDS: Morphine 30 MG Tab.ER PO SCH ×2 (08:40→20:52)
[2017-12-11] MEDS: Polyethylene Glycol 3350 Powder 17 GM Packet PO SCH (08:53)
[2017-12-11] MEDS: Enoxaparin 30 MG/0.3 ML Syringe SUBCUT SCH (20:43)
[2017-12-11] MEDS: Simvastatin 20 MG Tab PO SCH (20:45)
[2017-12-11] MEDS: Prochlorperazine 10 MG Tab PO PRN (22:32)
[2017-12-12] MEDS: oxyCODONE 5 MG Tab PO PRN ×4 (02:33→17:31)
[2017-12-12] MEDS: LORazepam 0.5 MG Tab PO PRN ×2 (02:34→06:29)
[2017-12-12] MEDS: Polyethylene Glycol 3350 Powder 17 GM Packet PO SCH (08:40)
[2017-12-12] MEDS: Fesoterodine Fumarate 4 MG Tab PO SCH (08:41)
[2017-12-12] MEDS: Morphine 30 MG Tab.ER PO SCH ×2 (08:45→21:23)
[2017-12-12] MEDS: Calcium Carbonate/Vitamin D3 1250 MG-200 Unit Tab PO SCH ×2 (08:45→17:32)
[2017-12-12] MEDS ORDERED: chlorproMAZINE 25 MG Tab PO PRN (09:10)
[2017-12-12] MEDS: Naproxen 500 MG Tab PO SCH ×2 (10:03→21:23)
--- NOTE | 2017-12-12 11:05 | PN ---
DATE SEEN: 12/12/2017 CHIEF COMPLAINT: Bone pain. HISTORY OF PRESENT ILLNESS: This is a 77-year-old male who is in swing bed, complains of bone pain, left thigh, pelvic area. It is not well controlled on oxycodone. Also complains of hiccups that are intractable. He has metastatic bladder cancer, supposed to start palliative chemotherapy later this week. REVIEW OF SYSTEMS: He complains of no insomnia. Mild nausea. No fever. SOCIAL HISTORY: Noncontributory. PHYSICAL EXAMINATION: VITAL SIGNS: Blood pressure 133/74 and pulse 95. MENTAL STATUS: He is alert. He answers questions well. No signs of sudhakar or psychosis. Sometimes anxious during the interview. LABORATORY DATA: Sodium 130, potassium 4.3, glucose 133, and magnesium 2.6. IMPRESSION: 1. Hiccups. 2. Bone pain. 3. Metastatic bladder cancer. 4. Type 2 diabetes. PLAN: 1. Add naproxen 500 mg b.i.d., scheduled for pain. 2. Discontinue meclizine in favor of chlorpromazine, which would help with hiccups as well. 3. Obtain blood pressure and blood sugar. 4. Increase the dose of metformin to 500 mg b.i.d. 5. Discontinue the statin that could also contribute to muscle and bone pain. /[id number] HIEN/TERRY MANZANOD
[2017-12-12] MEDS: metFORMIN 500 MG Tab.ER PO SCH (17:33)
[2017-12-12] MEDS: Enoxaparin 30 MG/0.3 ML Syringe SUBCUT SCH (21:21)
[2017-12-13] MEDS: oxyCODONE 5 MG Tab PO PRN ×4 (00:07→22:48)
[2017-12-13] MEDS: Morphine 30 MG Tab.ER PO SCH ×2 (08:01→20:42)
[2017-12-13] MEDS: Naproxen 500 MG Tab PO SCH ×2 (08:01→20:42)
[2017-12-13] MEDS: Polyethylene Glycol 3350 Powder 17 GM Packet PO SCH (08:03)
[2017-12-13] MEDS: Calcium Carbonate/Vitamin D3 1250 MG-200 Unit Tab PO SCH ×2 (08:04→17:57)
[2017-12-13] MEDS: metFORMIN 500 MG Tab.ER PO SCH ×2 (08:04→17:57)
[2017-12-13] MEDS: Fesoterodine Fumarate 4 MG Tab PO SCH (08:06)
[2017-12-13] MEDS: Enoxaparin 30 MG/0.3 ML Syringe SUBCUT SCH (20:41)
[2017-12-13] MEDS: Clotrimazole 1% Crm 15 GM Tube TOP SCH (20:43)
[2017-12-13] MEDS: LORazepam 0.5 MG Tab PO PRN (22:48)
[2017-12-14] MEDS: oxyCODONE 5 MG Tab PO PRN (03:13)
[2017-12-14] MEDS: Pantoprazole 40 MG Tab.CR PO SCH (04:59)
[2017-12-14] MEDS: Clotrimazole 1% Crm 15 GM Tube TOP SCH ×2 (07:45→21:02)
[2017-12-14] MEDS: Morphine 30 MG Tab.ER PO SCH ×2 (09:07→21:04)
[2017-12-14] MEDS: Polyethylene Glycol 3350 Powder 17 GM Packet PO SCH (09:08)
[2017-12-14] MEDS: metFORMIN 500 MG Tab.ER PO SCH ×2 (09:08→19:12)
[2017-12-14] MEDS: Fesoterodine Fumarate 4 MG Tab PO SCH (09:09)
[2017-12-14] MEDS: Naproxen 500 MG Tab PO SCH ×2 (09:09→21:03)
[2017-12-14] MEDS: Calcium Carbonate/Vitamin D3 1250 MG-200 Unit Tab PO SCH ×2 (09:09→19:11)
[2017-12-14] MEDS: OLANZapine 5 MG Tab PO SCH (10:30)
[2017-12-14] MEDS: Dexamethasone 4 MG Tab PO SCH (10:30)
[2017-12-14] MEDS: Enoxaparin 30 MG/0.3 ML Syringe SUBCUT SCH (21:03)
[2017-12-14] MEDS: Polyethylene Glycol 3350 Powder 17 GM Packet PO PRN (21:07)
[2017-12-15] MEDS: oxyCODONE 5 MG Tab PO PRN ×3 (00:49→22:33)
[2017-12-15] MEDS: LORazepam 0.5 MG Tab PO PRN (00:50)
[2017-12-15] MEDS: Pantoprazole 40 MG Tab.CR PO SCH (06:26)
[2017-12-15] MEDS: Morphine 30 MG Tab.ER PO SCH ×2 (09:02→21:07)
[2017-12-15] MEDS: Calcium Carbonate/Vitamin D3 1250 MG-200 Unit Tab PO SCH ×2 (09:04→18:37)
[2017-12-15] MEDS: OLANZapine 5 MG Tab PO SCH (09:05)
[2017-12-15] MEDS: Naproxen 500 MG Tab PO SCH ×2 (09:05→21:05)
[2017-12-15] MEDS: Fesoterodine Fumarate 4 MG Tab PO SCH (09:05)
[2017-12-15] MEDS: Dexamethasone 4 MG Tab PO SCH (09:05)
[2017-12-15] MEDS: Clotrimazole 1% Crm 15 GM Tube TOP SCH ×2 (09:06→21:04)
[2017-12-15] MEDS: metFORMIN 500 MG Tab.ER PO SCH ×2 (09:06→18:37)
[2017-12-15] MEDS: Polyethylene Glycol 3350 Powder 17 GM Packet PO SCH (09:14)
[2017-12-15] MEDS: Enoxaparin 30 MG/0.3 ML Syringe SUBCUT SCH (21:05)
[2017-12-15] MEDS: Magnesium Hydroxide 400 MG/5 ML Susp 30 ML Cup PO PRN (21:09)
[2017-12-16] MEDS: Pantoprazole 40 MG Tab.CR PO SCH (06:07)
[2017-12-16] MEDS: oxyCODONE 5 MG Tab PO PRN ×2 (06:07→19:23)
[2017-12-16] MEDS: metFORMIN 500 MG Tab.ER PO SCH ×2 (08:34→18:04)
[2017-12-16] MEDS: Naproxen 500 MG Tab PO SCH ×2 (08:34→21:44)
[2017-12-16] MEDS: Fesoterodine Fumarate 4 MG Tab PO SCH (08:34)
[2017-12-16] MEDS: Polyethylene Glycol 3350 Powder 17 GM Packet PO SCH (08:35)
[2017-12-16] MEDS: Calcium Carbonate/Vitamin D3 1250 MG-200 Unit Tab PO SCH ×2 (08:35→18:03)
[2017-12-16] MEDS: Morphine 30 MG Tab.ER PO SCH ×2 (08:39→21:44)
[2017-12-16] MEDS: Clotrimazole 1% Crm 15 GM Tube TOP SCH ×2 (08:41→21:40)
[2017-12-16] MEDS: Enoxaparin 30 MG/0.3 ML Syringe SUBCUT SCH (21:39)
[2017-12-17] MEDS: LORazepam 0.5 MG Tab PO PRN ×2 (01:46→22:30)
[2017-12-17] MEDS: oxyCODONE 5 MG Tab PO PRN ×3 (04:18→18:37)
[2017-12-17] MEDS: Pantoprazole 40 MG Tab.CR PO SCH (05:58)
[2017-12-17] MEDS: metFORMIN 500 MG Tab.ER PO SCH ×2 (09:47→17:47)
[2017-12-17] MEDS: Calcium Carbonate/Vitamin D3 1250 MG-200 Unit Tab PO SCH ×2 (09:47→17:47)
[2017-12-17] MEDS: Clotrimazole 1% Crm 15 GM Tube TOP SCH ×2 (09:48→21:19)
[2017-12-17] MEDS: Polyethylene Glycol 3350 Powder 17 GM Packet PO SCH (09:49)
[2017-12-17] MEDS: Fesoterodine Fumarate 4 MG Tab PO SCH (09:49)
[2017-12-17] MEDS: Naproxen 500 MG Tab PO SCH ×2 (09:49→21:20)
[2017-12-17] MEDS: Morphine 30 MG Tab.ER PO SCH ×2 (09:49→21:20)
[2017-12-17] MEDS: Enoxaparin 30 MG/0.3 ML Syringe SUBCUT SCH (21:19)
[2017-12-18] MEDS: oxyCODONE 5 MG Tab PO PRN ×4 (00:29→19:08)
[2017-12-18] MEDS: LORazepam 0.5 MG Tab PO PRN ×2 (02:30→22:31)
[2017-12-18] MEDS: Pantoprazole 40 MG Tab.CR PO SCH (06:04)
[2017-12-18] MEDS: Calcium Carbonate/Vitamin D3 1250 MG-200 Unit Tab PO SCH ×2 (08:23→17:52)
[2017-12-18] MEDS: metFORMIN 500 MG Tab.ER PO SCH ×2 (08:23→17:53)
[2017-12-18] MEDS: Fesoterodine Fumarate 4 MG Tab PO SCH (08:24)
[2017-12-18] MEDS: Polyethylene Glycol 3350 Powder 17 GM Packet PO SCH (08:24)
[2017-12-18] MEDS: Clotrimazole 1% Crm 15 GM Tube TOP SCH ×2 (08:24→21:10)
[2017-12-18] MEDS: Naproxen 500 MG Tab PO SCH ×2 (08:24→21:10)
[2017-12-18] MEDS: Morphine 30 MG Tab.ER PO SCH ×2 (08:30→21:10)
--- NOTE | 2017-12-18 09:00 | PCM.PN ---
- General Info Date of Service: 12/18/17 Admission Dx/Problem (Free Text): Patient without complaints. Says he is weak but he is getting better. He has no chest pain, shortness of breath. - Patient Data Vitals - Most Recent: Last Vital Signs Temp 97.9 F 12/17/17 08:00 Pulse 96 12/17/17 08:00 Resp 16 12/17/17 08:00 BP 135/73 12/17/17 08:00 Pulse Ox 97 12/17/17 12:00 Weight - Most Recent: 248 lb 11.2 oz Lab Results Last 24 Hours: Laboratory Results - last 24 hr 12/18/17 Range/Units 06:07 POC Glucose 120 H (80-116) mg/dL Med Orders - Current: Current Medications Al Hydroxide/Mg Hydroxide (Mag-Al Susp) 30 ml PO Q2H PRN PRN Reason: antacid Last Admin: 12/08/17 01:47 Dose: 30 ml Bisacodyl (Dulcolax) 10 mg RECTAL DAILY PRN PRN Reason: Constipation Last Admin: 12/10/17 01:40 Dose: 10 mg Calcium Carbonate (Calcium Carbonate/Vitamin D 1250 Mg-200 Unit) 2 tab PO BIDMEALS [facility] Last Admin: 12/18/17 08:23 Dose: 2 tab Chlorpromazine HCl (Thorazine) 25 mg PO Q6H PRN PRN Reason: Hiccups Clotrimazole (Clotrimazole 1%) 0 gm TOP BID [facility] Last Admin: 12/18/17 08:24 Dose: 1 applic Enoxaparin Sodium (Lovenox) 30 mg SUBCUT Q24H [facility] Last Admin: 12/17/17 21:19 Dose: 30 mg Fesoterodine Fumarate (Toviaz) 8 mg PO DAILY [facility] Last Admin: 12/18/17 08:24 Dose: 8 mg Lorazepam (Ativan) 0.5 mg PO Q4H PRN PRN Reason: Anxiety Last Admin: 12/18/17 02:30 Dose: 0.5 mg Magnesium Hydroxide (Milk Of Magnesia) 30 ml PO TID PRN PRN Reason: Constipation Last Admin: 12/15/17 21:09 Dose: 30 ml Metformin HCl (Glucophage Xr) 500 mg PO BIDMEALS [facility] Last Admin: 12/18/17 08:23 Dose: 500 mg Morphine Sulfate (Ms Contin) 30 mg PO BID [facility] Last Admin: 12/18/17 08:30 Dose: 30 mg Naproxen (Naprosyn) 500 mg PO Q12H [facility] Last Admin: 12/18/17 08:24 Dose: 500 mg Oxycodone HCl (Oxycodone) 10 mg PO Q4H PRN PRN Reason: Breakthrough Pain Last Admin: 12/18/17 05:16 Dose: 10 mg Pantoprazole Sodium (Protonix) 40 mg PO DAILY@0600 [facility] Last Admin: 12/18/17 06:04 Dose: 40 mg Polyethylene Glycol (Miralax) 17 gm PO DAILY PRN PRN Reason: Constipation Last Admin: 12/14/17 21:07 Dose: 17 gm Polyethylene Glycol (Miralax) 17 gm PO DAILY [facility] Last Admin: 12/18/17 08:24 Dose: 17 gm Senna/Docusate Sodium (Senna Plus) 2 tab PO BID [facility] Last Admin: 12/18/17 08:24 Dose: 2 tab Discontinued Medications Dexamethasone (Dexamethasone) 8 mg PO DAILY [facility] Stop: 12/09/17 09:00 Last Admin: 12/09/17 09:29 Dose: 8 mg Dexamethasone (Dexamethasone) 8 mg PO DAILY [facility] Stop: 12/15/17 09:01 Last Admin: 12/15/17 09:05 Dose: 8 mg Metformin HCl (Glucophage) 850 mg PO DAILY [facility] Last Admin: 12/12/17 08:39 Dose: 850 mg Olanzapine (Zyprexa) 5 mg PO DAILY [facility] Stop: 12/09/17 09:00 Last Admin: 12/09/17 09:29 Dose: 5 mg Olanzapine (Zyprexa) 5 mg PO DAILY [facility] Stop: 12/15/17 09:01 Last Admin: 12/15/17 09:05 Dose: 5 mg Prochlorperazine Maleate (Compazine) 10 mg PO QID PRN PRN Reason: Nausea/Vomiting Last Admin: 12/11/17 22:32 Dose: 10 mg Simvastatin (Zocor) 20 mg PO BEDTIME [facility] Last Admin: 12/11/17 20:45 Dose: 20 mg - Exam General: Alert, Oriented Neck: Supple Lungs: Clear to Auscultation, Normal Respiratory Effort Cardiovascular: Regular Rate, Regular Rhythm, No Murmurs - Problem List & Annotations (1) Malignant neoplasm metastatic from bladder SNOMED Code(s): 299046660 Code(s): C67.9 - MALIGNANT NEOPLASM OF BLADDER, UNSPECIFIED Status: Acute Current Visit: Yes - Problem List Review Problem List Initiated/Reviewed/Updated: Yes - Plan Plan:: Continue current rehabilitation treatment.
[2017-12-18] MEDS: Enoxaparin 30 MG/0.3 ML Syringe SUBCUT SCH (21:10)
[2017-12-19] MEDS: oxyCODONE 5 MG Tab PO PRN ×3 (01:43→14:07)
[2017-12-19] MEDS: Pantoprazole 40 MG Tab.CR PO SCH (05:37)
[2017-12-19] MEDS: metFORMIN 500 MG Tab.ER PO SCH ×2 (08:38→17:31)
[2017-12-19] MEDS: Clotrimazole 1% Crm 15 GM Tube TOP SCH ×2 (08:38→20:56)
[2017-12-19] MEDS: Calcium Carbonate/Vitamin D3 1250 MG-200 Unit Tab PO SCH ×2 (08:38→17:31)
[2017-12-19] MEDS: Naproxen 500 MG Tab PO SCH ×2 (08:39→20:56)
[2017-12-19] MEDS: Fesoterodine Fumarate 4 MG Tab PO SCH (08:39)
[2017-12-19] MEDS: Polyethylene Glycol 3350 Powder 17 GM Packet PO SCH (08:39)
[2017-12-19] MEDS: Morphine 30 MG Tab.ER PO SCH ×2 (08:44→20:55)
[2017-12-19] MEDS: LORazepam 0.5 MG Tab PO PRN (20:55)
[2017-12-20] MEDS: oxyCODONE 5 MG Tab PO PRN ×3 (00:51→14:46)
[2017-12-20] MEDS: Pantoprazole 40 MG Tab.CR PO SCH (05:40)
[2017-12-20] MEDS: Calcium Carbonate/Vitamin D3 1250 MG-200 Unit Tab PO SCH ×2 (09:09→18:22)
[2017-12-20] MEDS: Naproxen 500 MG Tab PO SCH ×2 (09:10→20:36)
[2017-12-20] MEDS: Clotrimazole 1% Crm 15 GM Tube TOP SCH ×2 (09:10→20:35)
[2017-12-20] MEDS: metFORMIN 500 MG Tab.ER PO SCH ×2 (09:10→18:22)
[2017-12-20] MEDS: Fesoterodine Fumarate 4 MG Tab PO SCH (09:11)
[2017-12-20] MEDS: Polyethylene Glycol 3350 Powder 17 GM Packet PO SCH (09:11)
[2017-12-20] MEDS: Morphine 30 MG Tab.ER PO SCH ×2 (09:11→20:36)
[2017-12-20] MEDS: LORazepam 0.5 MG Tab PO PRN (14:47)
[2017-12-21] MEDS: oxyCODONE 5 MG Tab PO PRN ×2 (02:19→23:54)
[2017-12-21] MEDS: Pantoprazole 40 MG Tab.CR PO SCH (05:23)
[2017-12-21] MEDS ORDERED: Ondansetron 4 MG Tab.DIS PO PRN (06:57)
[2017-12-21] MEDS: Clotrimazole 1% Crm 15 GM Tube TOP SCH ×2 (08:42→21:22)
[2017-12-21] MEDS: metFORMIN 500 MG Tab.ER PO SCH ×2 (08:44→19:02)
[2017-12-21] MEDS: Calcium Carbonate/Vitamin D3 1250 MG-200 Unit Tab PO SCH ×2 (08:44→19:02)
[2017-12-21] MEDS: Furosemide 20 MG Tab PO SCH (08:46)
[2017-12-21] MEDS: Morphine 30 MG Tab.ER PO SCH ×2 (08:47→21:23)
[2017-12-21] MEDS: Polyethylene Glycol 3350 Powder 17 GM Packet PO SCH (08:47)
[2017-12-21] MEDS: Naproxen 500 MG Tab PO SCH ×2 (08:48→21:11)
[2017-12-21] MEDS: Fesoterodine Fumarate 4 MG Tab PO SCH (08:48)
[2017-12-21] MEDS: LORazepam 0.5 MG Tab PO PRN ×2 (18:12→21:45)
[2017-12-22 02:41] VITALS: BP 150/90
[2017-12-22] MEDS: Pantoprazole 40 MG Tab.CR PO SCH (06:15)
[2017-12-22] MEDS: oxyCODONE 5 MG Tab PO PRN ×2 (07:36→13:20)
[2017-12-22] MEDS: LORazepam 0.5 MG Tab PO PRN ×2 (07:37→13:21)
[2017-12-22] MEDS: metFORMIN 500 MG Tab.ER PO SCH (07:39)
[2017-12-22] MEDS: Calcium Carbonate/Vitamin D3 1250 MG-200 Unit Tab PO SCH (07:39)
[2017-12-22] MEDS: Clotrimazole 1% Crm 15 GM Tube TOP SCH (08:43)
[2017-12-22] MEDS: Furosemide 20 MG Tab PO SCH (08:43)
[2017-12-22] MEDS: Polyethylene Glycol 3350 Powder 17 GM Packet PO SCH (08:44)
[2017-12-22] MEDS: Naproxen 500 MG Tab PO SCH (08:44)
[2017-12-22] MEDS: Fesoterodine Fumarate 4 MG Tab PO SCH (08:44)
[2017-12-22] MEDS: Morphine 30 MG Tab.ER PO SCH (08:49)
--- NOTE | 2017-12-22 13:14 | PCM.DCSUM1 ---
Discharge Summary - Hospital Course HPI Initial Comments: Pt is 77 y m recently dx with metastatic bladder carcinoma that has migrated to the bone and causing significant pain, debility and malaise. receiving palliative care via chemotherapy and pain control. also continues to be treated for ongoing commodities. - Discharge Data Discharge Date: 12/22/17 Discharge Disposition: Home, Self-Care 01 Condition: Fair - Discharge Diagnosis/Problem(s) (1) Malignant neoplasm metastatic from bladder SNOMED Code(s): 547420181 ICD Code: C67.9 - MALIGNANT NEOPLASM OF BLADDER, UNSPECIFIED Status: Acute Current Visit: Yes (2) Pain management SNOMED Code(s): 674095279 ICD Code: R52 - PAIN, UNSPECIFIED Status: Acute Current Visit: Yes (3) Palliative care status SNOMED Code(s): 280659990 ICD Code: Z51.5 - ENCOUNTER FOR PALLIATIVE CARE Status: Acute Current Visit: Yes (4) Bone metastases Status: Acute Current Visit: Yes (5) Chemotherapy induced neutropenia SNOMED Code(s): 047415359 ICD Code: D70.1 - AGRANULOCYTOSIS SECONDARY TO CANCER CHEMOTHERAPY; T45.1X5A - ADVERSE EFFECT OF ANTINEOPLASTIC AND IMMUNOSUP DRUGS, INIT Status: Acute Current Visit: Yes - Patient Summary/Data Consults: Consultations 12/07/17 12:59 Consult to Litigation Support Analyst [CONS] Routine Comment: Physician Instructions: OT Evaluation and Treatment [CONS] Routine Please Evaluate and Treat. OT Reason for Consult: bladder cancer with la nena mets present pain control This query below is only for informational purposes and is not editable. PT Evaluation and Treatment [CONS] Routine Please Evaluate and Treat. PT Reason for Consult: weakness b ladder cancer to bone pelvis This query below is only for informational purposes and is not editable. Recommended Follow-up Testing/Procedures: We'll continue to follow with his oncologist at the [facility] in [facility]. Loss of continue follow with his PCP continuity of cares. Hospital Course: Patient admitted on 12/07/2017 for bladder cancer metastatic to the bone causing significant pain resulting in weakness, fatigue, poor oral intake which was also exacerbated by ongoing chemotherapy for palliation. His metatarsal screening bed with pain control via oral opioids for which will go home on long with a bowel regimen with this his appetite improved and his strength as well. Physical and occupational therapy was able to work with him as he does have chronic peripheral lower extremity edema which also complicated his ambulation. During the course of his stay continued to improve and is now able to be discharged safely to home however we will continue to require home health physical therapy and occupational therapy regarding nursing assessments for medication management bladder cares, physical therapy occupational therapy for improved strength, ambulation and activities of daily living to also include continued education on reducing and preventing lower extremity edema. - Patient Instructions Diet: Low Sodium Activity: As Tolerated Showering/Bathing: May Shower Notify Provider of: Fever, Increased Pain, Swelling and Redness, Nausea and/or Vomiting - Discharge Plan Prescriptions/Med Rec: metFORMIN [Glucophage] 850 mg PO DAILY #30 tablet Morphine [MS Contin] 30 mg PO BID #60 tab.er Omeprazole 20 mg PO DAILY #60 cap.cr Ondansetron HCl [Zofran] 8 mg PO TID PRN #30 tablet PRN Reason: Nausea/Vomiting oxyCODONE 10 mg PO Q4H PRN #60 tablet PRN Reason: Breakthrough Pain Prochlorperazine [Compazine] 10 mg PO QID PRN #60 tablet PRN Reason: Nausea/Vomiting Home Medications: Home Meds Calcium Citrate/Vitamin D3 [Calcium Citrate - Vit D Tablet] 2 tab PO BIDMEALS [History] Fesoterodine Fumarate [Toviaz] 8 mg PO DAILY 12/07/17 [History] Magnesium Hydroxide [Milk of Magnesia] 30 ml PO TID PRN 12/07/17 [History] Polyethylene Glycol 3350 [MiraLAX] 17 gm PO DAILY PRN 12/07/17 [History] Sennosides/Docusate Sodium [Senna S Tablet] 2 tab PO BID 12/07/17 [History] Simvastatin [Zocor] 20 mg PO BEDTIME 12/07/17 [History] Clotrimazole [Clotrimazole 1%] 1 applic TOP BID 12/13/17 [History] Morphine [MS Contin] 30 mg PO BID #60 tab.er 12/22/17 [Rx] Omeprazole 20 mg PO DAILY #60 cap.cr 12/22/17 [Rx] Ondansetron HCl [Zofran] 8 mg PO TID PRN #30 tablet 12/22/17 [Rx] Prochlorperazine [Compazine] 10 mg PO QID PRN #60 tablet 12/22/17 [Rx] metFORMIN [Glucophage] 850 mg PO DAILY #30 tablet 12/22/17 [Rx] oxyCODONE 10 mg PO Q4H PRN #60 tablet 12/22/17 [Rx] - Discharge Summary/Plan Comment DC Time >30 min.: Yes Discharge Summary/Plan Comment: See above. - General Info Date of Service: 12/22/17 Functional Status: Reports: Pain Controlled, Tolerating Diet, Ambulating, Urinating - Review of Systems General: Reports: No Symptoms HEENT: Reports: No Symptoms Pulmonary: Reports: No Symptoms Cardiovascular: Reports: No Symptoms Gastrointestinal: Reports: No Symptoms Genitourinary: Reports: No Symptoms Musculoskeletal: Reports: No Symptoms Skin: Reports: No Symptoms Neurological: Reports: No Symptoms Psychiatric: Reports: No Symptoms - Patient Data Vitals - Most Recent: Last Vital Signs Temp 96.0 F 12/22/17 02:39 Pulse 100 12/22/17 02:39 Resp 16 12/22/17 02:39 BP 150/90 H 12/22/17 02:39 Pulse Ox 98 12/22/17 02:39 Weight - Most Recent: 112.808 kg Lab Results - Last 24 hrs: Laboratory Tests 12/08/17 12/09/17 12/09/17 Range/Units 23:35 00:42 07:53 WBC (4.5-12.0) X10-3/uL RBC (4.30-5.75) x10(6)uL Hgb (11.5-15.5) g/dL Hct (30.0-51.3) % MCV (80-96) fL MCH (27.7-33.6) pg MCHC (32.2-35.4) g/dL RDW (11.5-15.5) % Plt Count (125-369) X10(3)uL MPV (7.4-10.4) fL Add Manual Diff Neutrophils % (Manual) (46-82) % Lymphocytes % (Manual) (13-37) % Monocytes % (Manual) (4-12) % Sodium (135-145) mmol/L Potassium (3.5-5.3) mmol/L Chloride (100-110) mmol/L Carbon Dioxide (21-32) mmol/L BUN (7-18) mg/dL Creatinine (0.70-1.30) mg/dL Est Cr Clr Drug Dosing mL/min Estimated GFR (MDRD) (>60) BUN/Creatinine Ratio (9-20) Glucose (80-116) mg/dL POC Glucose 332 H D 207 H D (80-116) mg/dL Calcium (8.6-10.2) mg/dL Magnesium (1.8-2.5) mg/dL Total Bilirubin (0.1-1.3) mg/dL AST (5-25) IU/L ALT (12-36) U/L Alkaline Phosphatase (56-112) IU/L Total Protein (6.0-8.0) g/dL Albumin (3.2-4.6) g/dL Globulin g/dL Albumin/Globulin Ratio Urine Color Yellow (YELLOW) Urine Appearance Clear (CLEAR) Urine pH 6.5 (5.0-6.5) Ur Specific [place] 1.010 (1.010-1.025) Urine Protein Negative (NEGATIVE) mg/dL Urine Glucose (UA) >1000 H (NEGATIVE) mg/dL Urine Ketones Negative (NEGATIVE) mg/dL Urine Occult Blood Moderate H (NEGATIVE) Urine Nitrite Negative (NEGATIVE) Urine Bilirubin Negative (NEGATIVE) Urine Urobilinogen Normal (NEGATIVE) mg/dL Ur Leukocyte Esterase Negative (NEGATIVE) Urine RBC 5-10 (0) Urine WBC 0-5 (0) Ur Squamous Epith Cells Few H (NS,R,O) Urine Bacteria Occasional H (NS) 12/11/17 12/11/17 12/14/17 Range/Units 06:25 06:25 06:09 WBC 7.7 (4.5-12.0) X10-3/uL RBC 4.37 (4.30-5.75) x10(6)uL Hgb 12.8 (11.5-15.5) g/dL Hct 37.6 (30.0-51.3) % MCV 86.1 (80-96) fL MCH 29.3 (27.7-33.6) pg MCHC 34.0 (32.2-35.4) g/dL RDW 13.0 (11.5-15.5) % Plt Count 329 (125-369) X10(3)uL MPV 8.8 (7.4-10.4) fL Add Manual Diff Yes Neutrophils % (Manual) 83 H (46-82) % Lymphocytes % (Manual) 14 (13-37) % Monocytes % (Manual) 3 L (4-12) % Sodium 130 L (135-145) mmol/L Potassium 4.3 (3.5-5.3) mmol/L Chloride 94 L D (100-110) mmol/L Carbon Dioxide 27 (21-32) mmol/L BUN 37 H D (7-18) mg/dL Creatinine 1.3 (0.70-1.30) mg/dL Est Cr Clr Drug Dosing 50.68 mL/min Estimated GFR (MDRD) 54 L (>60) BUN/Creatinine Ratio 28.5 H (9-20) Glucose 163 H (80-116) mg/dL POC Glucose 155 H (80-116) mg/dL Calcium 9.6 (8.6-10.2) mg/dL Magnesium 2.6 H (1.8-2.5) mg/dL Total Bilirubin 0.5 (0.1-1.3) mg/dL AST 27 H (5-25) IU/L ALT 35 (12-36) U/L Alkaline Phosphatase 80 (56-112) IU/L Total Protein 7.2 (6.0-8.0) g/dL Albumin 2.3 L (3.2-4.6) g/dL Globulin 4.9 g/dL Albumin/Globulin Ratio 0.5 Urine Color (YELLOW) Urine Appearance (CLEAR) Urine pH (5.0-6.5) Ur Specific [place] (1.010-1.025) Urine Protein (NEGATIVE) mg/dL Urine Glucose (UA) (NEGATIVE) mg/dL Urine Ketones (NEGATIVE) mg/dL Urine Occult Blood (NEGATIVE) Urine Nitrite (NEGATIVE) Urine Bilirubin (NEGATIVE) Urine Urobilinogen (NEGATIVE) mg/dL Ur Leukocyte Esterase (NEGATIVE) Urine RBC (0) Urine WBC (0) Ur Squamous Epith Cells (NS,R,O) Urine Bacteria (NS) 12/15/17 12/16/17 12/17/17 Range/Units 07:34 05:57 06:10 WBC (4.5-12.0) X10-3/uL RBC (4.30-5.75) x10(6)uL Hgb (11.5-15.5) g/dL Hct (30.0-51.3) % MCV (80-96) fL MCH (27.7-33.6) pg MCHC (32.2-35.4) g/dL RDW (11.5-15.5) % Plt Count (125-369) X10(3)uL MPV (7.4-10.4) fL Add Manual Diff Neutrophils % (Manual) (46-82) % Lymphocytes % (Manual) (13-37) % Monocytes % (Manual) (4-12) % Sodium (135-145) mmol/L Potassium (3.5-5.3) mmol/L Chloride (100-110) mmol/L Carbon Dioxide (21-32) mmol/L BUN (7-18) mg/dL Creatinine (0.70-1.30) mg/dL Est Cr Clr Drug Dosing mL/min Estimated GFR (MDRD) (>60) BUN/Creatinine Ratio (9-20) Glucose (80-116) mg/dL POC Glucose 150 H 153 H 105 (80-116) mg/dL Calcium (8.6-10.2) mg/dL Magnesium (1.8-2.5) mg/dL Total Bilirubin (0.1-1.3) mg/dL AST (5-25) IU/L ALT (12-36) U/L Alkaline Phosphatase (56-112) IU/L Total Protein (6.0-8.0) g/dL Albumin (3.2-4.6) g/dL Globulin g/dL Albumin/Globulin Ratio Urine Color (YELLOW) Urine Appearance (CLEAR) Urine pH (5.0-6.5) Ur Specific [place] (1.010-1.025) Urine Protein (NEGATIVE) mg/dL Urine Glucose (UA) (NEGATIVE) mg/dL Urine Ketones (NEGATIVE) mg/dL Urine Occult Blood (NEGATIVE) Urine Nitrite (NEGATIVE) Urine Bilirubin (NEGATIVE) Urine Urobilinogen (NEGATIVE) mg/dL Ur Leukocyte Esterase (NEGATIVE) Urine RBC (0) Urine WBC (0) Ur Squamous Epith Cells (NS,R,O) Urine Bacteria (NS) 12/18/17 12/19/17 12/19/17 Range/Units 06:07 05:37 06:25 WBC 1.2 L* (4.5-12.0) X10-3/uL RBC 3.71 L (4.30-5.75) x10(6)uL Hgb 10.6 L (11.5-15.5) g/dL Hct 31.5 (30.0-51.3) % MCV 84.9 (80-96) fL MCH 28.6 (27.7-33.6) pg MCHC 33.7 (32.2-35.4) g/dL RDW 13.1 (11.5-15.5) % Plt Count 107 L (125-369) X10(3)uL MPV 7.0 L (7.4-10.4) fL Add Manual Diff Yes Neutrophils % (Manual) 60 (46-82) % Lymphocytes % (Manual) 40 H (13-37) % Monocytes % (Manual) (4-12) % Sodium (135-145) mmol/L Potassium (3.5-5.3) mmol/L Chloride (100-110) mmol/L Carbon Dioxide (21-32) mmol/L BUN (7-18) mg/dL Creatinine (0.70-1.30) mg/dL Est Cr Clr Drug Dosing mL/min Estimated GFR (MDRD) (>60) BUN/Creatinine Ratio (9-20) Glucose (80-116) mg/dL POC Glucose 120 H 122 H (80-116) mg/dL Calcium (8.6-10.2) mg/dL Magnesium (1.8-2.5) mg/dL Total Bilirubin (0.1-1.3) mg/dL AST (5-25) IU/L ALT (12-36) U/L Alkaline Phosphatase (56-112) IU/L Total Protein (6.0-8.0) g/dL Albumin (3.2-4.6) g/dL Globulin g/dL Albumin/Globulin Ratio Urine Color (YELLOW) Urine Appearance (CLEAR) Urine pH (5.0-6.5) Ur Specific [place] (1.010-1.025) Urine Protein (NEGATIVE) mg/dL Urine Glucose (UA) (NEGATIVE) mg/dL Urine Ketones (NEGATIVE) mg/dL Urine Occult Blood (NEGATIVE) Urine Nitrite (NEGATIVE) Urine Bilirubin (NEGATIVE) Urine Urobilinogen (NEGATIVE) mg/dL Ur Leukocyte Esterase (NEGATIVE) Urine RBC (0) Urine WBC (0) Ur Squamous Epith Cells (NS,R,O) Urine Bacteria (NS) 12/19/17 12/20/17 12/21/17 Range/Units 06:25 06:28 05:25 WBC (4.5-12.0) X10-3/uL RBC (4.30-5.75) x10(6)uL Hgb (11.5-15.5) g/dL Hct (30.0-51.3) % MCV (80-96) fL MCH (27.7-33.6) pg MCHC (32.2-35.4) g/dL RDW (11.5-15.5) % Plt Count (125-369) X10(3)uL MPV (7.4-10.4) fL Add Manual Diff Neutrophils % (Manual) (46-82) % Lymphocytes % (Manual) (13-37) % Monocytes % (Manual) (4-12) % Sodium 139 (135-145) mmol/L Potassium 4.5 (3.5-5.3) mmol/L Chloride 103 D (100-110) mmol/L Carbon Dioxide 27 (21-32) mmol/L BUN 24 H D (7-18) mg/dL Creatinine 1.0 (0.70-1.30) mg/dL Est Cr Clr Drug Dosing 65.89 mL/min Estimated GFR (MDRD) > 60 (>60) BUN/Creatinine Ratio 24.0 H (9-20) Glucose 119 H (80-116) mg/dL POC Glucose 121 H 131 H (80-116) mg/dL Calcium 7.9 L (8.6-10.2) mg/dL Magnesium 1.8 (1.8-2.5) mg/dL Total Bilirubin 0.4 (0.1-1.3) mg/dL AST 21 D (5-25) IU/L ALT 25 D (12-36) U/L Alkaline Phosphatase 81 (56-112) IU/L Total Protein 6.5 (6.0-8.0) g/dL Albumin 2.2 L (3.2-4.6) g/dL Globulin 4.3 g/dL Albumin/Globulin Ratio 0.5 Urine Color (YELLOW) Urine Appearance (CLEAR) Urine pH (5.0-6.5) Ur Specific [place] (1.010-1.025) Urine Protein (NEGATIVE) mg/dL Urine Glucose (UA) (NEGATIVE) mg/dL Urine Ketones (NEGATIVE) mg/dL Urine Occult Blood (NEGATIVE) Urine Nitrite (NEGATIVE) Urine Bilirubin (NEGATIVE) Urine Urobilinogen (NEGATIVE) mg/dL Ur Leukocyte Esterase (NEGATIVE) Urine RBC (0) Urine WBC (0) Ur Squamous Epith Cells (NS,R,O) Urine Bacteria (NS) 12/22/17 Range/Units 06:14 WBC (4.5-12.0) X10-3/uL RBC (4.30-5.75) x10(6)uL Hgb (11.5-15.5) g/dL Hct (30.0-51.3) % MCV (80-96) fL MCH (27.7-33.6) pg MCHC (32.2-35.4) g/dL RDW (11.5-15.5) % Plt Count (125-369) X10(3)uL MPV (7.4-10.4) fL Add Manual Diff Neutrophils % (Manual) (46-82) % Lymphocytes % (Manual) (13-37) % Monocytes % (Manual) (4-12) % Sodium (135-145) mmol/L Potassium (3.5-5.3) mmol/L Chloride (100-110) mmol/L Carbon Dioxide (21-32) mmol/L BUN (7-18) mg/dL Creatinine (0.70-1.30) mg/dL Est Cr Clr Drug Dosing mL/min Estimated GFR (MDRD) (>60) BUN/Creatinine Ratio (9-20) Glucose (80-116) mg/dL POC Glucose 101 (80-116) mg/dL Calcium (8.6-10.2) mg/dL Magnesium (1.8-2.5) mg/dL Total Bilirubin (0.1-1.3) mg/dL AST (5-25) IU/L ALT (12-36) U/L Alkaline Phosphatase (56-112) IU/L Total Protein (6.0-8.0) g/dL Albumin (3.2-4.6) g/dL Globulin g/dL Albumin/Globulin Ratio Urine Color (YELLOW) Urine Appearance (CLEAR) Urine pH (5.0-6.5) Ur Specific [place] (1.010-1.025) Urine Protein (NEGATIVE) mg/dL Urine Glucose (UA) (NEGATIVE) mg/dL Urine Ketones (NEGATIVE) mg/dL Urine Occult Blood (NEGATIVE) Urine Nitrite (NEGATIVE) Urine Bilirubin (NEGATIVE) Urine Urobilinogen (NEGATIVE) mg/dL Ur Leukocyte Esterase (NEGATIVE) Urine RBC (0) Urine WBC (0) Ur Squamous Epith Cells (NS,R,O) Urine Bacteria (NS) Med Orders - Current: Current Medications Al Hydroxide/Mg Hydroxide (Mag-Al Susp) 30 ml PO Q2H PRN PRN Reason: antacid Last Admin: 12/08/17 01:47 Dose: 30 ml Bisacodyl (Dulcolax) 10 mg RECTAL DAILY PRN PRN Reason: Constipation Last Admin: 12/10/17 01:40 Dose: 10 mg Calcium Carbonate (Calcium Carbonate/Vitamin D 1250 Mg-200 Unit) 2 tab PO BIDMEALS [facility] Last Admin: 12/22/17 07:39 Dose: 2 tab Chlorpromazine HCl (Thorazine) 25 mg PO Q6H PRN PRN Reason: Hiccups Clotrimazole (Clotrimazole 1%) 0 gm TOP BID [facility] Last Admin: 12/22/17 08:43 Dose: 1 applic Fesoterodine Fumarate (Toviaz) 8 mg PO DAILY [facility] Last Admin: 12/22/17 08:44 Dose: 8 mg Furosemide (Lasix) 20 mg PO DAILY [facility] Last Admin: 12/22/17 08:43 Dose: 20 mg Lorazepam (Ativan) 0.5 mg PO Q4H PRN PRN Reason: Anxiety Last Admin: 12/22/17 07:37 Dose: 0.5 mg Magnesium Hydroxide (Milk Of Magnesia) 30 ml PO TID PRN PRN Reason: Constipation Last Admin: 12/15/17 21:09 Dose: 30 ml Metformin HCl (Glucophage Xr) 500 mg PO BIDMEALS [facility] Last Admin: 12/22/17 07:39 Dose: 500 mg Morphine Sulfate (Ms Contin) 30 mg PO BID [facility] Last Admin: 12/22/17 08:49 Dose: 30 mg Naproxen (Naprosyn) 500 mg PO Q12H [facility] Last Admin: 12/22/17 08:44 Dose: 500 mg Ondansetron HCl (Zofran Odt) 4 mg PO Q6H PRN PRN Reason: Nausea Last Admin: 12/21/17 07:06 Dose: 4 mg Oxycodone HCl (Oxycodone) 10 mg PO Q4H PRN PRN Reason: Breakthrough Pain Last Admin: 12/22/17 07:36 Dose: 10 mg Pantoprazole Sodium (Protonix) 40 mg PO DAILY@0600 [facility] Last Admin: 12/22/17 06:15 Dose: 40 mg Polyethylene Glycol (Miralax) 17 gm PO DAILY PRN PRN Reason: Constipation Last Admin: 12/14/17 21:07 Dose: 17 gm Polyethylene Glycol (Miralax) 17 gm PO DAILY [facility] Last Admin: 12/22/17 08:44 Dose: 17 gm Senna/Docusate Sodium (Senna Plus) 2 tab PO BID [facility] Last Admin: 12/22/17 08:44 Dose: 2 tab Discontinued Medications Dexamethasone (Dexamethasone) 8 mg PO DAILY [facility] Stop: 12/09/17 09:00 Last Admin: 12/09/17 09:29 Dose: 8 mg Dexamethasone (Dexamethasone) 8 mg PO DAILY [facility] Stop: 12/15/17 09:01 Last Admin: 12/15/17 09:05 Dose: 8 mg Enoxaparin Sodium (Lovenox) 30 mg SUBCUT Q24H [facility] Last Admin: 12/18/17 21:10 Dose: 30 mg Metformin HCl (Glucophage) 850 mg PO DAILY [facility] Last Admin: 12/12/17 08:39 Dose: 850 mg Olanzapine (Zyprexa) 5 mg PO DAILY [facility] Stop: 12/09/17 09:00 Last Admin: 12/09/17 09:29 Dose: 5 mg Olanzapine (Zyprexa) 5 mg PO DAILY [facility] Stop: 12/15/17 09:01 Last Admin: 12/15/17 09:05 Dose: 5 mg Prochlorperazine Maleate (Compazine) 10 mg PO QID PRN PRN Reason: Nausea/Vomiting Last Admin: 12/11/17 22:32 Dose: 10 mg Simvastatin (Zocor) 20 mg PO BEDTIME [facility] Last Admin: 12/11/17 20:45 Dose: 20 mg - Exam General: Reports: Alert, Oriented, No Acute Distress HEENT: Reports: Mucous Membr. Moist/Louin. Denies: Scleral Icterus Neck: Reports: Supple Lungs: Reports: Clear to Auscultation, Normal Respiratory Effort Cardiovascular: Reports: Regular Rate, Regular Rhythm GI/Abdominal Exam: Normal Bowel Sounds, Soft, Non-Tender Back Exam: Reports: Normal Inspection. Denies: Muscle Spasm, Vertebral Tenderness Extremities: Pedal Edema Skin: Reports: Warm, Dry Neurological: Reports: Strength Equal Bilateral Psy/Mental Status: Reports: Alert, Normal Affect, Normal Mood *Q Meaningful Use (DIS) - VTE *Q VTE Criteria *Q: - Stroke *Q Stroke Criteria *Q: - AMI *Q AMI Criteria *Q:
== END 2017-12-22 13:37 | disposition home health service (06) | DRG 948 ==
LOC: FB.MS 14:17
PROVIDERS: ADMIT Family Medicine; ATTEND Family Medicine
DX: R53.1 Weakness (principal); C79.51 Secondary malignant neoplasm of bone; Z51.5 Encounter for palliative care; C67.9 Malignant neoplasm of bladder, unspecified; M89.8X0 Other specified disorders of bone, multiple sites; N40.0 Benign prostatic hyperplasia without lower urinary tract symptoms; E11.9 Type 2 diabetes mellitus without complications; E78.00 Pure hypercholesterolemia, unspecified; Z87.891 Personal history of nicotine dependence; Z79.84 Long term (current) use of oral hypoglycemic drugs; R06.6 Hiccough; D70.1 Agranulocytosis secondary to cancer chemotherapy; T45.1X5A Adverse effect of antineoplastic and immunosuppressive drugs, initial encounter; Z79.82 Long term (current) use of aspirin
CPT/HCPCS: 36415; 80053; 81001; 82962; 83735; 85025; 97110-GO; 97110-GP; 97116-GP; 97162-GP; 97165-GO; 97530-GO; 97530-GO-KX; 97530-GP; 97535-GO; A9270-GY; J1650; J8540

== ENCOUNTER 2017-12-25 22:27 | Observation (INO) | payer MEDICARE, BC ==
--- NOTE | 2017-12-25 22:45 | EDM.PDOC ---
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 Has been living in his own home alone, but it is not working out for him. Arrives via EMS. Would like to be admitted at this time. Thinks he may have had a fever recently. Has not missed any of his pain med doses. Most of his pain is in the L hip and R foot. Onset: Gradual Duration: Chronic, Constant, Getting Worse Location: Reports: Lower Extremity, Left (hip), Lower Extremity, Right (foot) Quality: Reports: Ache Severity: Moderate Improves with: Reports: Medication Worsens with: Reports: Other (time) Context: Reports: Other (metastatic CA) Associated Symptoms: Reports: No Other Symptoms Treatments LICENSED PRACTICAL VOCATIONAL NURSE: Reports: Other (see below) (prescription pain meds) - Related Data Allergies Allergy/AdvReac Type Severity Reaction Status Date / Time No Known Allergies Allergy Verified 12/25/17 22:50 Home Meds: Home Meds Calcium Citrate/Vitamin D3 [Calcium Citrate - Vit D Tablet] 2 tab PO BIDMEALS [History] Fesoterodine Fumarate [Toviaz] 8 mg PO DAILY 12/07/17 [History] Magnesium Hydroxide [Milk of Magnesia] 30 ml PO TID PRN 12/07/17 [History] Polyethylene Glycol 3350 [MiraLAX] 17 gm PO DAILY 12/07/17 [History] Sennosides/Docusate Sodium [Senna S Tablet] 2 tab PO BID 12/07/17 [History] Simvastatin [Zocor] 20 mg PO BEDTIME 12/07/17 [History] Clotrimazole [Clotrimazole 1%] 1 applic TOP BID 12/13/17 [History] Morphine [MS Contin] 30 mg PO BID #60 tab.er 12/22/17 [Rx] Ondansetron HCl [Zofran] 8 mg PO TID PRN #30 tablet 12/22/17 [Rx] metFORMIN [Glucophage] 850 mg PO DAILY #30 tablet 12/22/17 [Rx] oxyCODONE 10 mg PO Q4H PRN #60 tablet 12/22/17 [Rx] Alum Hydroxide/Mag Hydroxide [Mag-Al] 30 ml PO Q2HR PRN 12/25/17 [History] Bisacodyl [Dulcolax] 10 mg RC DAILY PRN 12/25/17 [History] Furosemide 20 mg PO DAILY 12/25/17 [History] LORazepam [Ativan] 0.5 mg PO Q4HR PRN 12/25/17 [History] Naproxen 500 mg PO Q12HR 12/25/17 [History] Pantoprazole Sodium [Protonix] 40 mg PO DAILY 12/25/17 [History] chlorproMAZINE [Thorazine] 25 mg PO Q6HR PRN 12/25/17 [History] Past Medical History Cardiovascular History: Reports: High Cholesterol Gastrointestinal History: Reports: Colon Polyp Genitourinary History: Reports: Other (See Below) Other Genitourinary History: Bladder cancer Musculoskeletal History: Reports: Other (See Below) Other Musculoskeletal History: 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 Endocrine/Metabolic History: Reports: Diabetes, Type II Immunologic History: Reports: Immunosuppression Oncologic (Cancer) History: Reports: Bladder, Other (See Below) Other Oncologic History: skin - Infectious Disease History Infectious Disease History: Reports: Mononucleosis, Rheumatic Fever - Past Surgical History GI Surgical History: Reports: Colonoscopy Male Surgical History: Reports: Other (See Below) Other Male Surgeries/Procedures: laser prostatem surgery-10 years ago Musculoskeletal Surgical History: Reports: Other (See Below) Other Musculoskeletal Surgeries/Procedures:: lumbar fusion 1965 Oncologic Surgical History: Reports: Other (See Below) Other Oncologic Surgeries/Procedures: bladder biopsy. bone mets Dermatological Surgical History: Reports: Other (See Below) Social & Family History - Family History Family Medical History: Noncontributory - Tobacco Use Smoking Status *Q: Never Smoker Used Tobacco, but Quit: Yes Month Tobacco Last Used: unknown Second Hand Smoke Exposure: No - Caffeine Use Caffeine Use: Reports: Coffee Other Caffeine Use: 1-2 per day Caffeine Use Comment: 2 cups a day - Alcohol Use Days Per Week of Alcohol Use: 0 - Recreational Drug Use Recreational Drug Use: No ED ROS GENERAL - Review of Systems Review Of Systems: See Below Constitutional: Reports: No Symptoms HEENT: Reports: No Symptoms Respiratory: Reports: No Symptoms Cardiovascular: Reports: No Symptoms GI/Abdominal: Reports: No Symptoms : Reports: No Symptoms Musculoskeletal: Reports: Foot Pain (R distal foot), Joint Pain (L hip) Skin: Reports: No Symptoms Neurological: Reports: No Symptoms ED EXAM, GENERAL - Physical Exam Exam: See Below Exam Limited By: No Limitations General Appearance: Alert, WD/WN, No Apparent Distress Eye Exam: Bilateral Eye: Normal Inspection Ears: Normal External Exam, Normal Canal, Hearing Grossly Normal Ear Exam: Bilateral Ear: Auricle Normal, Canal Normal Nose: Normal Inspection, Normal Mucosa, No Blood Throat/Mouth: Normal Inspection, Normal Lips, Normal Oropharynx, Normal Voice, No Airway Compromise Neck: Normal Inspection Respiratory/Chest: No Respiratory Distress, Lungs Clear, Normal Breath Sounds, No Accessory Muscle Use Cardiovascular: Regular Rate, Rhythm, Other (pitting edema of both LE's) GI/Abdominal: Normal Bowel Sounds, Soft, Distended (obese), Tender (mild, diffuse.). No: Guarding, Rigid, Rebound Extremities: Pedal Edema (bilat.). No: No Pedal Edema, Increased Warmth, Mottled, Redness Neurological: Alert, Oriented, CN II-XII Intact, Normal Cognition, No Motor/ Sensory Deficits Psychiatric: Normal Affect, Normal Mood Skin Exam: Warm, Dry, Intact, Normal Color, No Rash Course - Vital Signs Last Recorded V/S: Last Vital Signs Temp 36.7 C 12/25/17 22:30 Pulse 106 H 12/25/17 22:30 Resp 18 12/25/17 22:30 BP 148/80 H 12/25/17 22:30 Pulse Ox 97 12/25/17 22:30 - Orders/Labs/Meds Orders: Active Orders 24 hr Category Date Time Status Sodium Chloride 0.9% [Saline Flush] Med 12/25/17 22:37 Active 10 ml FLUSH ASDIRECTED PRN Saline Lock Insert [OM.PC] Routine Oth 12/25/17 22:37 Ordered Medication Orders Sodium Chloride (Saline Flush) 10 ml FLUSH ASDIRECTED PRN PRN Reason: Keep Vein Open Last Admin: 12/25/17 23:24 Dose: 10 ml Admin: 12/25/17 23:14 Dose: 10 ml Labs: Laboratory Tests 12/25/17 12/25/17 Range/Units 23:00 23:00 WBC 3.1 L (4.5-12.0) X10-3/uL RBC 3.58 L (4.30-5.75) x10(6)uL Hgb 10.1 L (11.5-15.5) g/dL Hct 30.0 (30.0-51.3) % MCV 83.9 (80-96) fL MCH 28.1 (27.7-33.6) pg MCHC 33.5 (32.2-35.4) g/dL RDW 13.8 (11.5-15.5) % Plt Count 563 H (125-369) X10(3)uL Sodium 135 (135-145) mmol/L Potassium 4.4 (3.5-5.3) mmol/L Chloride 99 L (100-110) mmol/L Carbon Dioxide 28 (21-32) mmol/L BUN 18 (7-18) mg/dL Creatinine 1.0 (0.70-1.30) mg/dL Est Cr Clr Drug Dosing TNP Estimated GFR (MDRD) > 60 (>60) BUN/Creatinine Ratio 18.0 (9-20) Glucose 135 H (80-116) mg/dL Calcium 8.2 L (8.6-10.2) mg/dL Total Bilirubin 0.2 (0.1-1.3) mg/dL AST 28 H D (5-25) IU/L ALT 24 (12-36) U/L Alkaline Phosphatase 80 (56-112) IU/L Total Protein 6.2 (6.0-8.0) g/dL Albumin 2.2 L (3.2-4.6) g/dL Globulin 4.0 g/dL Albumin/Globulin Ratio 0.6 Meds: Medications Generic Name Dose Route Start Last Admin Trade Name Freq PRN Reason Stop Dose Admin Sodium Chloride 10 ml 12/25/17 22:37 12/25/17 23:24 Saline Flush FLUSH 10 ml ASDIRECTED PRN Administration Keep Vein Open Discontinued Medications Generic Name Dose Route Start Last Admin Trade Name Freq PRN Reason Stop Dose Admin Morphine Sulfate 4 mg 12/25/17 23:06 12/25/17 23:13 Morphine IVPUSH 12/25/17 23:07 4 mg ONETIME ONE Administration Morphine Sulfate 4 mg 12/25/17 23:16 12/25/17 23:23 Morphine IVPUSH 12/25/17 23:17 4 mg ONETIME ONE Administration Departure - Departure Time of Disposition: 23:45 Disposition: Refer to Observation Condition: Good Clinical Impression: Pain management, Malignant neoplasm metastatic from bladder - Discharge Information Referrals: Jerome Calderon MD [Primary Care Provider] - Forms: ED Department Discharge - My Orders Last 24 Hours: My Active Orders 12/25/17 22:37 Sodium Chloride 0.9% [Saline Flush] 10 ml FLUSH ASDIRECTED PRN Saline Lock Insert [OM.PC] Routine - Assessment/Plan Last 24 Hours: My Active Orders 12/25/17 22:37 Sodium Chloride 0.9% [Saline Flush] 10 ml FLUSH ASDIRECTED PRN Saline Lock Insert [OM.PC] Routine
[2017-12-25] MEDS ORDERED: Morphine 4 MG/ML Syringe IVPUSH ONE ×2 (23:06→23:16)
[2017-12-25] MEDS: Sodium Chloride 0.9% 10 ML Syringe FLUSH PRN ×2 (23:14→23:24)
[2017-12-25] MEDS ORDERED: Polyethylene Glycol 3350 Powder 17 GM Packet PO PRN (23:38)
[2017-12-25] MEDS ORDERED: Ibuprofen 200 MG Tab PO PRN (23:38)
[2017-12-25] MEDS ORDERED: Ondansetron 4 MG Tab.DIS PO PRN (23:38)
[2017-12-26] MEDS: Enoxaparin 40 MG/0.4 ML Syringe SUBCUT SCH ×2 (00:54→23:55)
[2017-12-26] MEDS: Morphine 4 MG/ML Syringe IVPUSH PRN ×3 (01:15→15:53)
[2017-12-26] MEDS: Sodium Chloride 0.9% 10 ML Syringe FLUSH PRN ×4 (01:17→15:52)
[2017-12-26] MEDS ORDERED: chlorproMAZINE 25 MG Tab PO PRN (08:40)
[2017-12-26] MEDS: Naproxen 500 MG Tab PO SCH ×2 (09:51→20:50)
[2017-12-26] MEDS: Furosemide 20 MG Tab PO SCH (09:51)
[2017-12-26] MEDS: METFORMIN 850 MG PO SCH (09:52)
[2017-12-26] MEDS: Morphine 30 MG Tab.ER PO SCH ×2 (09:52→20:50)
[2017-12-26] MEDS: Morphine 15 MG Tab.ER PO SCH ×2 (09:52→20:50)
[2017-12-26] MEDS: OMEPRAZOLE 20MG *PTOM PO SCH (10:26)
[2017-12-26] MEDS: Docusate Sodium/Sennosides 50-8.6 MG Tab *PTOM PO SCH ×2 (11:17→20:51)
[2017-12-26] MEDS ORDERED: Nitroglycerin 0.4 MG Tab.SL SL PRN (12:48)
[2017-12-26] MEDS ORDERED: Enoxaparin 40 MG/0.4 ML Syringe SUBCUT SCH (13:00)
--- NOTE | 2017-12-26 13:09 | PCM.HP ---
H&P History of Present Illness - General Date of Service: 12/26/17 Admit Problem/Dx: Admission Diagnosis/Problem Admission Diagnosis/Problem Bone pain Source of Information: Patient, EMS Notes Reviewed, Family - History of Present Illness Initial Comments - Free Text/Narative: Patient is a 77-year-old male brought in by his family. Recently discharged from swing bed after having spent several days undergoing pain management physical therapy and rehabilitation for debility malaise secondary to recent palliative chemotherapy for metastatic bladder carcinoma. This has left him with nausea vomiting, neutropenia and declining functional status. He had done well and was discharged to home where he lives alone. Over the course of 2 days he began having a cough, subjective fever, increase in right hip pain and weakness. A call was made to his oncologist who informed him he should be seen in the ER and admitted to the hospital. He has been appointment with his oncologist Elias Timmons tomorrow morning. Patient tells me he feels good morning however he is weak and does not believe he can manage at home any longer on his own. I talked his son who tells me he has been trying to gather family members who will go and spend time with him however this will not be 24-hour care. Son also tells me he has been trying to figure out a way to get him in some sort of assisted living center versus skilled nursing. Patient was on a farm home bound. Tells me doesn't have a headache, no shortness of breath, no wheezing, he did have a cough that is resolved, he has no chest pain or pressure, does not feel palpitations lightheadedness or dizziness, been in a wheelchair. He has continuous chronic bilateral lower extremity edema, which has not changed, he has no abdominal pain, has not been constipated nor having diarrhea. He denies dystaxia or melena. No hematemesis or hemoptysis. No unusual bruising. Denies pain in his back but he does have increased pain in his left groin and hip area which was his main complaint. This is ongoing which is currently being managed by oral opioid therapy for bone metastasis and lymphadenopathy. He has been consistent with his oral opioid therapy. Per records he was not discharged on his oral naproxen so he has not taken this for 2 days. Speaking with him, his son is in discharge coordination of cares as well as getting him to and from appointments. When asked him by his chemotherapy, and he knew that his cancer was not curable, he became very distraught and asked " am I going to "which I responded "well we all will Monday "yes your chemotherapy is not intended to cure you of your cancer. "He then made a phone call to a friend, stating "all my gosh, I'm going to ""what am I going to do. " I then spoke to his son on the phone, informed him of this conversation for which he tells me that he and the family have been very cautious regarding telling the patient specifics about his diagnosis and prognosis because it is "upsetting to him and he is going through a lot right now as well as the family. "Therefore, he would like communication to go through himself rather than to the patient prior speaking with the patient. left hip Pain Score (Numeric/FACES): 5 right foot Pain Score (Numeric/FACES): 5 denies Pain Score (Numeric/FACES): 0 - Related Data Allergies/Adverse Reactions: Allergies Allergy/AdvReac Type Severity Reaction Status Date / Time No Known Allergies Allergy Verified 12/25/17 22:50 Home Medications: Home Meds Calcium Citrate/Vitamin D3 [Calcium Citrate - Vit D Tablet] 2 tab PO BIDMEALS [History] Fesoterodine Fumarate [Toviaz] 8 mg PO DAILY 12/07/17 [History] Magnesium Hydroxide [Milk of Magnesia] 30 ml PO TID PRN 12/07/17 [History] Polyethylene Glycol 3350 [MiraLAX] 17 gm PO DAILY PRN 12/07/17 [History] Sennosides/Docusate Sodium [Senna S Tablet] 2 tab PO BID 12/07/17 [History] Simvastatin [Zocor] 20 mg PO BEDTIME 12/07/17 [History] Clotrimazole [Clotrimazole 1%] 1 applic TOP BID 12/13/17 [History] Morphine [MS Contin] 30 mg PO BID #60 tab.er 12/22/17 [Rx] Ondansetron HCl [Zofran] 8 mg PO TID PRN #30 tablet 12/22/17 [Rx] metFORMIN [Glucophage] 850 mg PO DAILY #30 tablet 12/22/17 [Rx] oxyCODONE 10 mg PO Q4H PRN #60 tablet 12/22/17 [Rx] Omeprazole 20 mg PO DAILY 12/25/17 [History] Prochlorperazine [Compazine] 10 mg PO QID PRN 12/25/17 [History] Past Medical History Cardiovascular History: Reports: High Cholesterol Gastrointestinal History: Reports: Colon Polyp Genitourinary History: Reports: Other (See Below) Other Genitourinary History: Bladder cancer Musculoskeletal History: Reports: Other (See Below) Other Musculoskeletal History: 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 Endocrine/Metabolic History: Reports: Diabetes, Type II Immunologic History: Reports: Immunosuppression Oncologic (Cancer) History: Reports: Bladder, Other (See Below) Other Oncologic History: skin - Infectious Disease History Infectious Disease History: Reports: Mononucleosis, Rheumatic Fever - Past Surgical History GI Surgical History: Reports: Colonoscopy Male Surgical History: Reports: Other (See Below) Other Male Surgeries/Procedures: laser prostatem surgery-10 years ago Musculoskeletal Surgical History: Reports: Other (See Below) Other Musculoskeletal Surgeries/Procedures:: lumbar fusion 1965 Oncologic Surgical History: Reports: Other (See Below) Other Oncologic Surgeries/Procedures: bladder biopsy. bone mets Dermatological Surgical History: Reports: Other (See Below) Social & Family History - Family History Family Medical History: Noncontributory - Tobacco Use Smoking Status *Q: Never Smoker Used Tobacco, but Quit: Yes Month Tobacco Last Used: unknown Second Hand Smoke Exposure: No - Caffeine Use Caffeine Use: Reports: Coffee Other Caffeine Use: 1-2 per day Caffeine Use Comment: 2 cups a day - Alcohol Use Days Per Week of Alcohol Use: 0 - Recreational Drug Use Recreational Drug Use: No H&P Review of Systems - Review of Systems: Review Of Systems: ROS reveals no pertinent complaints other than HPI. Exam - Exam Exam: See Below - Vital Signs Vital Signs: Last Vital Signs Temp 97.7 F 12/26/17 07:22 Pulse 93 12/26/17 07:22 Resp 20 12/26/17 07:22 BP 120/68 12/26/17 07:22 Pulse Ox 94 L 12/26/17 12:49 Weight: 111.72 kg - Exam General: Alert, Oriented, Mild Distress HEENT: Conjunctiva Clear, Mucosa Moist & [place] Neck: Supple. No: Lymphadenopathy Lungs: Clear to Auscultation, Normal Respiratory Effort Cardiovascular: Regular Rate, Regular Rhythm GI/Abdominal Exam: Normal Bowel Sounds, Non-Tender Back Exam: Other (Does point to the left hip/groin area stating he has pain and tenderness there. There is no obvious abnormality or palpable defect no erythema warmth or lesion.). No: Vertebral Tenderness Extremities: Pedal Edema (2+ bilateral symmetric at knees. No asymmetry.). No: Leg Pain, Increased Warmth, Redness Skin: Other (Small abrasion noted to the right foot dorsum. No induration or purulent drainage. This was covered with Triple Antibiotic ointment and absorbent bandage. This was present on discharge. He's not having any pain in the foot normal leg ankle or calves.) Neurological: No: Focal Deficit Psychiatric: Anxious, Depressed - Patient Data Lab Results Last 24 hrs: Laboratory Results - last 24 hr 12/26/17 Range/Units 02:30 Urine Color Yellow (YELLOW) Urine Appearance Clear (CLEAR) Urine pH 6.0 (5.0-6.5) Ur Specific Davin 1.010 (1.010-1.025) Urine Protein Negative (NEGATIVE) mg/dL Urine Glucose (UA) Normal (NEGATIVE) mg/dL Urine Ketones Negative (NEGATIVE) mg/dL Urine Occult Blood Negative (NEGATIVE) Urine Nitrite Negative (NEGATIVE) Urine Bilirubin Negative (NEGATIVE) Urine Urobilinogen Normal (NEGATIVE) mg/dL Ur Leukocyte Esterase Negative (NEGATIVE) Urine RBC 0-5 (0) Urine WBC 0-5 (0) Ur Squamous Epith Cells Occasional (NS,R,O) Urine Bacteria Few H (NS) Result Diagrams: 12/25/17 23:00 12/25/17 23:00 *Q Meaningful Use (ADM) - VTE *Q VTE Criteria *Q: - Stroke *Q Stroke Criteria *Q: - AMI *Q AMI Criteria *Q: - Problem List (1) Pain management SNOMED Code(s): 108051971 ICD Code: R52 - PAIN, UNSPECIFIED Status: Acute Priority: High Current Visit: Yes (2) Complaint of debility and malaise SNOMED Code(s): 601934510 ICD Code: R53.81 - OTHER MALAISE Status: Acute Current Visit: Yes (3) Malignant neoplasm metastatic from bladder SNOMED Code(s): 099320835 ICD Code: C67.9 - MALIGNANT NEOPLASM OF BLADDER, UNSPECIFIED Status: Chronic Current Visit: Yes (4) Bone metastases Status: Chronic Current Visit: Yes (5) Palliative care status SNOMED Code(s): 825145882 ICD Code: Z51.5 - ENCOUNTER FOR PALLIATIVE CARE Status: Chronic Current Visit: Yes (6) Palliative chemotherapy underway SNOMED Code(s): 522451550 ICD Code: Z51.11 - ENCOUNTER FOR ANTINEOPLASTIC CHEMOTHERAPY; Z51.5 - ENCOUNTER FOR PALLIATIVE CARE Status: Acute Current Visit: Yes (7) Chemotherapy induced neutropenia SNOMED Code(s): 184235056 ICD Code: D70.1 - AGRANULOCYTOSIS SECONDARY TO CANCER CHEMOTHERAPY; T45.1X5A - ADVERSE EFFECT OF ANTINEOPLASTIC AND IMMUNOSUP DRUGS, INIT Status: Chronic Current Visit: No (8) Peripheral edema SNOMED Code(s): 442398112 ICD Code: R60.9 - EDEMA, UNSPECIFIED Status: Chronic Current Visit: Yes (9) BPH (benign prostatic hyperplasia) SNOMED Code(s): 649227728 ICD Code: N40.0 - BENIGN PROSTATIC HYPERPLASIA WITHOUT LOWER URINRY TRACT SYMP Status: Chronic Current Visit: No Qualifiers: Lower urinary tract symptom presence: symptoms present (10) Abrasion SNOMED Code(s): 594034303 ICD Code: T14.8 - OTHER INJURY OF UNSPECIFIED BODY REGION * DO NOT USE * Status: Acute Current Visit: No Problem Details: Right dorsal foot (11) KIERA (generalized anxiety disorder) SNOMED Code(s): 53470252 ICD Code: F41.1 - GENERALIZED ANXIETY DISORDER Status: Acute Current Visit: No (12) Obesity SNOMED Code(s): 674090088 ICD Code: E66.9 - OBESITY, UNSPECIFIED Status: Acute Current Visit: No Qualifiers: Body mass index: BMI 34.0-34.9 (13) Pelvic lymphadenopathy SNOMED Code(s): 525941806 ICD Code: R59.0 - LOCALIZED ENLARGED LYMPH NODES Status: Acute Current Visit: No Problem List Initiated/Reviewed/Updated: Yes Orders Last 24hrs: Active Orders 24 hr Category Date Time Status Patient Status [ADT] Routine ADT 12/25/17 23:38 Active Bedrest Bedside Commode [RC] ASDIRECTED Care 12/25/17 23:38 Active Communication Order [RC] Q4H Care 12/26/17 13:02 Ordered Dietary Supplements [RC] 1400,1900 Care 12/26/17 10:15 Active Elevate Foot of Bed [RC] ASDIRECTED Care 12/26/17 12:57 Ordered Height and Weight [RC] 06 Care 12/25/17 23:38 Active Intake and Output [RC] Q6HR Care 12/26/17 12:48 Ordered Notify Provider Vital Signs [RC] ASDIRECTED Care 12/26/17 12:52 Ordered Oxygen Therapy [RC] PRN Care 12/25/17 23:38 Active Pulse Oximetry [RC] PRN Care 12/26/17 12:49 Ordered Turn and Reposition [RC] Q2HR Care 12/26/17 12:50 Ordered Up With Assistance [RC] 09,13,17,21 Care 12/25/17 23:38 Active VTE/DVT Education [RC] Click to Edit Care 12/26/17 12:52 Ordered VTE/DVT Education [RC] Per Unit Routine Care 12/25/17 23:38 Active Vital Signs [RC] 08,16,00 Care 12/25/17 23:38 Active Consult to High School Math Teacher [CONS] Routine Cons 12/25/17 23:38 Active Docusate Sodium/Sennosides [Senna Plus] Med 12/26/17 11:00 Active 2 tab PO BID Enoxaparin [Lovenox] Med 12/26/17 00:00 Active 40 mg SUBCUT Q24H Enoxaparin [Lovenox] Med 12/27/17 00:05 Ordered 40 mg SUBCUT Q24H Fesoterodine Fumarate [Toviaz] Med 12/27/17 09:00 Pending 8 mg PO DAILY Furosemide [Lasix] Med 12/26/17 09:00 Active 20 mg PO DAILY LORazepam [Ativan] Med 12/26/17 08:40 Active 0.5 mg PO Q4H PRN Morphine Med 12/25/17 23:47 Active 4 mg IVPUSH Q2H PRN Morphine [MS Contin] Med 12/26/17 09:00 Active 15 mg PO BID Morphine [MS Contin] Med 12/26/17 09:00 Active 30 mg PO BID Naproxen [Naprosyn] Med 12/26/17 09:00 Active 500 mg PO BID Nitroglycerin [Nitrostat] Med 12/26/17 12:48 Ordered 0.4 mg SL Q5M PRN Non-Formulary Medication [NF Drug] Med 12/26/17 10:00 Active 0 each PO DAILY Polyethylene Glycol 3350 [MiraLAX] Med 12/25/17 23:38 Active 17 gm PO DAILY PRN chlorproMAZINE [Thorazine] Med 12/26/17 08:40 Active 25 mg PO Q6H PRN metFORMIN [Glucophage] Med 12/26/17 09:00 Active 850 mg PO DAILY DVT/VTE Prophylaxis Reflex [OM.PC] Per Unit Routine Oth 12/26/17 12:49 Ordered Resuscitation Status Routine Resus Stat 12/25/17 23:38 Ordered Medication Orders Chlorpromazine HCl (Thorazine) 25 mg PO Q6H PRN PRN Reason: Hiccups Enoxaparin Sodium (Lovenox) 40 mg SUBCUT Q24H [facility] Last Admin: 12/26/17 00:54 Dose: 40 mg Enoxaparin Sodium (Lovenox) 40 mg SUBCUT Q24H [facility] Furosemide (Lasix) 20 mg PO DAILY [facility] Last Admin: 12/26/17 09:51 Dose: 20 mg Lorazepam (Ativan) 0.5 mg PO Q4H PRN PRN Reason: Anxiety Metformin HCl (Glucophage) 850 mg PO DAILY [facility] Last Admin: 12/26/17 09:52 Dose: 850 mg Morphine Sulfate (Morphine) 4 mg IVPUSH Q2H PRN PRN Reason: Pain Last Admin: 12/26/17 04:18 Dose: 4 mg Admin: 12/26/17 01:15 Dose: 4 mg Morphine Sulfate (Ms Contin) 30 mg PO BID [facility] Last Admin: 12/26/17 09:52 Dose: 30 mg Morphine Sulfate (Ms Contin) 15 mg PO BID [facility] Last Admin: 12/26/17 09:52 Dose: 15 mg Naproxen (Naprosyn) 500 mg PO BID [facility] Last Admin: 12/26/17 09:51 Dose: 500 mg Nitroglycerin (Nitrostat) 0.4 mg SL Q5M PRN PRN Reason: Chest Pain Non-Formulary Medication (Fesoterodine Fumarate [Toviaz]) 8 mg PO DAILY [facility] Omeprazole 20mg * (Ptom) 0 each PO DAILY [facility] Last Admin: 12/26/17 10:26 Dose: 1 each Polyethylene Glycol (Miralax) 17 gm PO DAILY PRN PRN Reason: Constipation Senna/Docusate Sodium (Senna Plus) 2 tab PO BID [facility] Last Admin: 12/26/17 11:17 Dose: 2 tab Sodium Chloride (Saline Flush) 10 ml FLUSH ASDIRECTED PRN PRN Reason: Keep Vein Open Last Admin: 12/26/17 07:30 Dose: 10 ml Admin: 12/26/17 04:19 Dose: 10 ml Admin: 12/26/17 01:17 Dose: 10 ml Admin: 12/25/17 23:24 Dose: 10 ml Admin: 12/25/17 23:14 Dose: 10 ml Assessment/Plan Comment:: Admit under observation care for pain management. Currently requiring IV morphine intermittently as we increase his oral opioid therapy and add back his oral NSAID (see naproxen). We'll continue to treat his comorbidities and social work lecturer is working with the family with regards to outpatient placement as he has further declined in his ability to care for himself alone in his home due to weakness, peripheral edema, diminished cognitive function, anxiety/ depression and ongoing chemotherapy for palliation. He has an appointment with his oncologist tomorrow afternoon. Plan to discharge so he can make this appointment and further discuss whether or not palliative chemotherapy is to continue. I did discuss with his son on the phone the above patient concerns regarding not wanting to be home alone anymore, has recurrent admission, as well as pain management and consideration for hospice in the future as well as skilled nursing placement. Son tells me he is working with trying to get more family in the home as well as in the community to possible skilled nursing should the patient so desire. I believe the above discussions are appropriate as management goes will get oncology's recommendation.
[2017-12-26] MEDS: LORazepam 0.5 MG Tab PO PRN (14:06)
[2017-12-26] MEDS: Bacitracin/Neomycin/Polymyxin B Oint 0.9 GM U/D Packet TOP SCH ×2 (17:00→20:51)
[2017-12-27] MEDS ORDERED: Enoxaparin 30 MG/0.3 ML Syringe SUBCUT SCH (00:05)
[2017-12-27] MEDS: LORazepam 0.5 MG Tab PO PRN ×2 (01:08→07:43)
[2017-12-27] MEDS: Morphine 4 MG/ML Syringe IVPUSH PRN ×2 (01:09→07:44)
[2017-12-27] MEDS: Sodium Chloride 0.9% 10 ML Syringe FLUSH PRN ×2 (01:10→07:43)
[2017-12-27] MEDS: Bacitracin/Neomycin/Polymyxin B Oint 0.9 GM U/D Packet TOP SCH (08:03)
[2017-12-27] MEDS: METFORMIN 850 MG PO SCH (08:04)
[2017-12-27] MEDS: Naproxen 500 MG Tab PO SCH (08:04)
[2017-12-27] MEDS: Docusate Sodium/Sennosides 50-8.6 MG Tab *PTOM PO SCH (08:05)
[2017-12-27] MEDS: OMEPRAZOLE 20MG *PTOM PO SCH (08:05)
[2017-12-27 08:18] VITALS: BP 136/73
[2017-12-27] MEDS: Morphine 30 MG Tab.ER PO SCH (08:47)
[2017-12-27] MEDS: Morphine 15 MG Tab.ER PO SCH (08:47)
[2017-12-27] MEDS ORDERED: Non-Formulary Medication 1 Each (Fesoterodine Fumarate [Toviaz] 8 MG) PO SCH (09:00)
[2017-12-27] MEDS: Furosemide 20 MG Tab PO SCH (10:17)
--- NOTE | 2017-12-27 10:45 | PCM.DCSUM1 ---
Discharge Summary - Hospital Course Brief History: I was asked to D/C pt ano Dr. Bryant's behalf - Discharge Data Discharge Date: 12/27/17 Discharge Disposition: Home, Self-Care 01 Condition: Good - Discharge Diagnosis/Problem(s) (1) Complaint of debility and malaise SNOMED Code(s): 762171629 ICD Code: R53.81 - OTHER MALAISE Status: Acute Current Visit: Yes (2) Pain management SNOMED Code(s): 368446902 ICD Code: R52 - PAIN, UNSPECIFIED Status: Acute Priority: High Current Visit: Yes (3) Palliative chemotherapy underway SNOMED Code(s): 771140988 ICD Code: Z51.11 - ENCOUNTER FOR ANTINEOPLASTIC CHEMOTHERAPY; Z51.5 - ENCOUNTER FOR PALLIATIVE CARE Status: Acute Current Visit: Yes (4) Bone metastases Status: Chronic Current Visit: Yes (5) Malignant neoplasm metastatic from bladder SNOMED Code(s): 190203988 ICD Code: C67.9 - MALIGNANT NEOPLASM OF BLADDER, UNSPECIFIED Status: Chronic Current Visit: Yes (6) Palliative care status SNOMED Code(s): 061953472 ICD Code: Z51.5 - ENCOUNTER FOR PALLIATIVE CARE Status: Chronic Current Visit: Yes (7) Peripheral edema SNOMED Code(s): 914193057 ICD Code: R60.9 - EDEMA, UNSPECIFIED Status: Chronic Current Visit: Yes - Patient Summary/Data Consults: Consultations 12/25/17 23:38 Consult to Manager Business Management [CONS] Routine Comment: Physician Instructions: - Patient Instructions Other/Special Instructions: Please go straight to the [facility] for further care and treatment. - Discharge Plan Prescriptions/Med Rec: Morphine [MS Contin] 30 mg PO BID #60 tab.er Naproxen 500 mg PO BID #60 tablet oxyCODONE 10 mg PO Q4H PRN #60 tablet PRN Reason: Breakthrough Pain Home Medications: Home Meds Calcium Citrate/Vitamin D3 [Calcium Citrate - Vit D Tablet] 2 tab PO BIDMEALS [History] Fesoterodine Fumarate [Toviaz] 8 mg PO DAILY 12/07/17 [History] Magnesium Hydroxide [Milk of Magnesia] 30 ml PO TID PRN 12/07/17 [History] Polyethylene Glycol 3350 [MiraLAX] 17 gm PO DAILY PRN 12/07/17 [History] Sennosides/Docusate Sodium [Senna S Tablet] 2 tab PO BID 12/07/17 [History] Simvastatin [Zocor] 20 mg PO BEDTIME 12/07/17 [History] Clotrimazole [Clotrimazole 1%] 1 applic TOP BID 12/13/17 [History] Ondansetron HCl [Zofran] 8 mg PO TID PRN #30 tablet 12/22/17 [Rx] metFORMIN [Glucophage] 850 mg PO DAILY #30 tablet 12/22/17 [Rx] Omeprazole 20 mg PO DAILY 12/25/17 [History] Prochlorperazine [Compazine] 10 mg PO QID PRN 12/25/17 [History] Morphine [MS Contin] 30 mg PO BID #60 tab.er 12/27/17 [Rx] Naproxen 500 mg PO BID #60 tablet 12/27/17 [Rx] oxyCODONE 10 mg PO Q4H PRN #60 tablet 12/27/17 [Rx] Forms: ED Department Discharge Referrals: Jerome Calderon MD [Primary Care Provider] - - Discharge Summary/Plan Comment DC Time >30 min.: No - Patient Data Vitals - Most Recent: Last Vital Signs Temp 36.4 C 12/27/17 07:20 Pulse 73 12/27/17 07:20 Resp 20 12/27/17 07:20 BP 136/73 12/27/17 07:20 Pulse Ox 94 L 12/27/17 07:20 Weight - Most Recent: 111.72 kg I&O - Last 24 hours: Intake & Output 12/26/17 12/27/17 12/27/17 22:59 06:59 14:59 Intake Total 200 600 Output Total 700 100 Balance -500 500 Med Orders - Current: Current Medications Chlorpromazine HCl (Thorazine) 25 mg PO Q6H PRN PRN Reason: Hiccups Enoxaparin Sodium (Lovenox) 40 mg SUBCUT Q24H TOMMY Last Admin: 12/26/17 23:55 Dose: 40 mg Furosemide (Lasix) 20 mg PO DAILY TOMMY Last Admin: 12/27/17 10:17 Dose: 20 mg Lorazepam (Ativan) 0.5 mg PO Q4H PRN PRN Reason: Anxiety Last Admin: 12/27/17 07:43 Dose: 0.5 mg Metformin HCl (Glucophage) 850 mg PO DAILY [facility] Last Admin: 12/27/17 08:04 Dose: 850 mg Morphine Sulfate (Morphine) 4 mg IVPUSH Q2H PRN PRN Reason: Pain Last Admin: 12/27/17 07:44 Dose: 4 mg Morphine Sulfate (Ms Contin) 30 mg PO BID [facility] Last Admin: 12/27/17 08:47 Dose: 30 mg Morphine Sulfate (Ms Contin) 15 mg PO BID [facility] Last Admin: 12/27/17 08:47 Dose: 15 mg Naproxen (Naprosyn) 500 mg PO BID [facility] Last Admin: 12/27/17 08:04 Dose: 500 mg Neomycin/Polymyxin/Bacitracin (Triple Antibiotic Oint) 1 each TOP BID [facility] Last Admin: 12/27/17 08:03 Dose: 1 each Nitroglycerin (Nitrostat) 0.4 mg SL Q5M PRN PRN Reason: Chest Pain Non-Formulary Medication (Fesoterodine Fumarate [Toviaz]) 8 mg PO DAILY [facility] Omeprazole 20mg * (Ptom) 0 each PO DAILY [facility] Last Admin: 12/27/17 08:05 Dose: 1 each Polyethylene Glycol (Miralax) 17 gm PO DAILY PRN PRN Reason: Constipation Senna/Docusate Sodium (Senna Plus) 2 tab PO BID [facility] Last Admin: 12/27/17 08:05 Dose: 2 tab Sodium Chloride (Saline Flush) 10 ml FLUSH ASDIRECTED PRN PRN Reason: Keep Vein Open Last Admin: 12/27/17 07:43 Dose: 10 ml Discontinued Medications Enoxaparin Sodium (Lovenox) 40 mg SUBCUT Q24H [facility] Last Admin: 12/26/17 14:40 Dose: Not Given Ibuprofen (Motrin) 200 mg PO Q6H PRN PRN Reason: Pain (mild 1-3) Morphine Sulfate (Morphine) 4 mg IVPUSH ONETIME ONE Stop: 12/25/17 23:07 Last Admin: 12/25/17 23:13 Dose: 4 mg Morphine Sulfate (Morphine) 4 mg IVPUSH ONETIME ONE Stop: 12/25/17 23:17 Last Admin: 12/25/17 23:23 Dose: 4 mg Ondansetron HCl (Zofran Odt) 4 mg PO Q6H PRN PRN Reason: nausea, able to take PO *Q Meaningful Use (DIS) - VTE *Q VTE Criteria *Q: - Stroke *Q Stroke Criteria *Q: - AMI *Q AMI Criteria *Q:
== END 2017-12-27 10:45 | disposition home or self-care (01) ==
LOC: FB.ED 22:27 → FB.MS 23:36
PROVIDERS: ADMIT Emergency Medicine; ATTEND Family Medicine
DX: R53.81 Other malaise (principal); C67.9 Malignant neoplasm of bladder, unspecified; R60.9 Edema, unspecified; E78.00 Pure hypercholesterolemia, unspecified; E11.9 Type 2 diabetes mellitus without complications; C79.51 Secondary malignant neoplasm of bone; D70.1 Agranulocytosis secondary to cancer chemotherapy; N40.0 Benign prostatic hyperplasia without lower urinary tract symptoms; F41.1 Generalized anxiety disorder; E66.9 Obesity, unspecified; R59.0 Localized enlarged lymph nodes; Z51.5 Encounter for palliative care; Z79.899 Other long term (current) drug therapy; Z79.84 Long term (current) use of oral hypoglycemic drugs; Z86.010 Personal history of colon polyps; Z68.34 Body mass index [BMI] 34.0-34.9, adult
CPT/HCPCS: 36415; 80053; 81001; 85027; 96372; 96374; 96376; 99284; 99285; A9270; G0378; J1650; J2270; J7050

== ENCOUNTER 2017-12-29 09:16 | Inpatient (IN) | payer MEDICARE, BC ==
[2017-12-29] MEDS ORDERED: Albuterol/Ipratropium 3.0-0.5 MG/3 ML Neb Soln ONE (09:40)
[2017-12-29] MEDS ORDERED: Albuterol/Ipratropium 3.0-0.5 MG/3 ML Neb Soln NEB ONE (10:23)
[2017-12-29] MEDS ORDERED: Levofloxacin/Dextrose 5%-Water 750 MG in Premix Bag 1 BAG IV ONE (10:23)
--- NOTE | 2017-12-29 10:38 | EDM.PDOC ---
ED HPI GENERAL MEDICAL PROBLEM - General Chief Complaint: Respiratory Problem Stated Complaint: SOB, SWELLING Time Seen by Provider: 12/29/17 09:20 Source of Information: Reports: Patient, Family History Limitations: Reports: No Limitations - History of Present Illness INITIAL COMMENTS - FREE TEXT/NARRATIVE: 77 y.o.w.m with metastatic bladder CA, S/P radiation Tx. was scheduled on yesterday for ChemoTx which could not be sykes because pt was neutropenic. It was rescheduled for 01/03/2018. Pt came to the ED today because of SOB, leg swelling and erythema at his right foot. No N/V/D or any other acute medical issues BP 139/93 Pulse 76 RR 20 Pulse 119 Temp 36.7 Onset Date: 12/29/17 Onset Time: 09:00 Duration: Hour(s): Location: Reports: Abdomen, Lower Extremity, Left, Lower Extremity, Right Quality: Reports: Ache Severity: Mild Improves with: Reports: None Worsens with: Reports: None Context: Reports: Other (h/p metastatic bladder CA) Associated Symptoms: Reports: Rash (right foot cellulitis), Shortness of Breath , Weakness, Other (leg swelling) general Pain Score (Numeric/FACES): 6 Left Hip Pain Score (Numeric/FACES): 6 - Related Data Allergies Allergy/AdvReac Type Severity Reaction Status Date / Time No Known Allergies Allergy Verified 12/29/17 09:33 Home Meds: Home Meds Calcium Citrate/Vitamin D3 [Calcium Citrate - Vit D Tablet] 2 tab PO BIDMEALS [History] Fesoterodine Fumarate [Toviaz] 8 mg PO DAILY 12/07/17 [History] Magnesium Hydroxide [Milk of Magnesia] 30 ml PO TID PRN 12/07/17 [History] Polyethylene Glycol 3350 [MiraLAX] 17 gm PO DAILY PRN 12/07/17 [History] Sennosides/Docusate Sodium [Senna S Tablet] 2 tab PO BID 12/07/17 [History] Simvastatin [Zocor] 20 mg PO BEDTIME 12/07/17 [History] Clotrimazole [Clotrimazole 1%] 1 applic TOP BID 12/13/17 [History] Ondansetron HCl [Zofran] 8 mg PO TID PRN #30 tablet 12/22/17 [Rx] metFORMIN [Glucophage] 850 mg PO DAILY #30 tablet 12/22/17 [Rx] Omeprazole 20 mg PO DAILY 12/25/17 [History] Prochlorperazine [Compazine] 10 mg PO QID PRN 12/25/17 [History] Morphine [MS Contin] 30 mg PO BID #60 tab.er 12/27/17 [Rx] oxyCODONE 10 mg PO Q4H PRN #60 tablet 12/27/17 [Rx] Cephalexin [Keflex] 500 mg PO Q12HR 12/29/17 [History] chlorproMAZINE [Thorazine] 25 mg PO Q6HR PRN MDD 4 tablets-100mg 12/29/17 [ History] Past Medical History Cardiovascular History: Reports: High Cholesterol Gastrointestinal History: Reports: Colon Polyp Genitourinary History: Reports: Other (See Below) Other Genitourinary History: Bladder cancer Musculoskeletal History: Reports: Other (See Below) Other Musculoskeletal History: 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 Endocrine/Metabolic History: Reports: Diabetes, Type II Immunologic History: Reports: Immunosuppression Oncologic (Cancer) History: Reports: Bladder, Other (See Below) Other Oncologic History: skin - Infectious Disease History Infectious Disease History: Reports: Mononucleosis, Rheumatic Fever - Past Surgical History GI Surgical History: Reports: Colonoscopy Male Surgical History: Reports: Other (See Below) Other Male Surgeries/Procedures: laser prostatem surgery-10 years ago Musculoskeletal Surgical History: Reports: Other (See Below) Other Musculoskeletal Surgeries/Procedures:: lumbar fusion 1965 Oncologic Surgical History: Reports: Other (See Below) Other Oncologic Surgeries/Procedures: bladder biopsy. bone mets Dermatological Surgical History: Reports: Other (See Below) Social & Family History - Family History Family Medical History: Noncontributory - Tobacco Use Smoking Status *Q: Former Smoker Used Tobacco, but Quit: Yes Month Tobacco Last Used: 0 Second Hand Smoke Exposure: No - Caffeine Use Caffeine Use: Reports: Coffee Other Caffeine Use: 1-2 per day Caffeine Use Comment: 2 cups a day - Alcohol Use Days Per Week of Alcohol Use: 0 - Recreational Drug Use Recreational Drug Use: No ED ROS GENERAL - Review of Systems Review Of Systems: See Below Constitutional: Reports: Weakness, Decreased Appetite HEENT: Reports: No Symptoms Respiratory: Reports: Shortness of Breath Cardiovascular: Reports: No Symptoms Endocrine: Reports: No Symptoms GI/Abdominal: Reports: No Symptoms : Reports: Frequency, Other (H/O bladder CA) Musculoskeletal: Reports: Other (foot pain) Skin: Reports: Wound (open wound right forefoot) Neurological: Reports: No Symptoms Psychiatric: Reports: No Symptoms Hematologic/Lymphatic: Reports: Anemia Immunologic: Reports: No Symptoms ED EXAM, GENERAL - Physical Exam Exam: See Below Exam Limited By: No Limitations General Appearance: Alert, WD/WN, Mild Distress, Obese Eye Exam: Bilateral Eye: Abnormal EOM Ears: Normal External Exam Ear Exam: Bilateral Ear: Auricle Normal Nose: Normal Inspection, Normal Mucosa, No Blood Throat/Mouth: Normal Inspection, Normal Lips Head: Atraumatic, Normocephalic Neck: Normal Inspection, Supple, Non-Tender Respiratory/Chest: No Respiratory Distress, Other (decr. Breath sound santiago lower lungs) Cardiovascular: Normal Peripheral Pulses, Regular Rate, Rhythm Peripheral Pulses: 1+: Brachial (L) GI/Abdominal: Normal Bowel Sounds, Soft, Non-Tender (Male) Exam: Deferred Rectal (Males) Exam: Deferred Back Exam: Normal Inspection, Full Range of Motion Extremities: Pedal Edema, Other (chronic leg edema) Neurological: Alert, Oriented, CN II-XII Intact, Normal Cognition, Abnormal Gait Psychiatric: Normal Affect, Normal Mood Skin Exam: Warm, Dry, Intact, Normal Color, Rash (Santiago forfoot) Lymphatic: No Adenopathy Course - Vital Signs Text/Narrative:: 77 y.o.w.m with metastatic bladder CA, S/P radiation Tx. was scheduled on yesterday for ChemoTx which could not be sykes because pt was neutropenic. It was rescheduled for 01/03/2018. Pt came to the ED today because of SOB, leg swelling and erythema at his right foot. No N/V/D or any other acute medical issues BP 139/93 Pulse 76 RR 20 Pulse 119 Temp 36.7 PE: WNWD W M NAD with forefoot cellulitis, SOB Imaging: CXR bilat pneumonia at base. CT foot: Cellulitis, No abscess seen as per RAD Labs: WBC 9.3 Bands 7 HGB 10.3 HCT 30.4 Lactic acid 2.3 Glc 204 BNP 664 GFR > 60 Impression: Elevated Lactic elevated, Bladder CA with mets to bone, S/P RAD Tx. scheduled for chemo Tx, Bilat forefoot Cellutitis, Bilat pneumonia at base. Tx: Abx Duoneb 10.[address] Quintana,Saurabh shields, Oncologists, [facility]: Teat Infection here at [facility], consult Oncologist in a few days. 11.02 am Consultation: Dr. Chiu Accepted the pt for admission and further care Plan: Admit to [place] Last Recorded V/S: Last Vital Signs Temp 35.8 C 01/02/18 07:27 Pulse 97 01/02/18 07:27 Resp 20 01/02/18 00:00 BP 133/86 01/02/18 07:27 Pulse Ox 95 01/02/18 07:27 - Orders/Labs/Meds Orders: Medication Orders Clotrimazole (Clotrimazole 1%) 0 gm TOP BID [facility] Last Admin: 01/02/18 08:08 Dose: Not Given Admin: 01/01/18 21:01 Dose: Not Given Admin: 01/01/18 08:40 Dose: Admin: 12/31/17 20:01 Dose: Not Given Admin: 12/31/17 09:17 Dose: 1 applic Admin: 12/30/17 20:59 Dose: Not Given Admin: 12/30/17 10:18 Dose: 1 applic Docusate Sodium (Colace) 100 mg PO BID PRN PRN Reason: Constipation Duloxetine HCl (Cymbalta) 60 mg PO DAILY [facility] Last Admin: 01/02/18 08:03 Dose: 60 mg Admin: 01/01/18 09:05 Dose: 60 mg Enoxaparin Sodium (Lovenox) 110 mg SUBCUT Q12H [facility] Last Admin: 01/02/18 08:03 Dose: 110 mg Admin: 01/01/18 20:59 Dose: 110 mg Admin: 01/01/18 09:12 Dose: 110 mg Fentanyl (Duragesic) 12 mcg TRDERM Q72H [facility] Last Admin: 01/01/18 08:52 Dose: 12 mcg Fesoterodine Fumarate (Toviaz) 8 mg PO DAILY [facility] Last Admin: 01/02/18 08:06 Dose: 8 mg Admin: 01/01/18 08:59 Dose: 8 mg Admin: 12/31/17 09:17 Dose: 8 mg Admin: 12/30/17 10:08 Dose: 8 mg Furosemide (Lasix) 40 mg IVPUSH BIDDIURETIC [facility] Last Admin: 01/02/18 09:05 Dose: 40 mg Admin: 01/01/18 14:55 Dose: 40 mg Admin: 01/01/18 08:32 Dose: 40 mg Admin: 12/31/17 13:44 Dose: 40 mg Admin: 12/31/17 08:19 Dose: 40 mg Admin: 12/30/17 13:42 Dose: 40 mg Admin: 12/30/17 08:26 Dose: 40 mg Admin: 12/29/17 18:50 Dose: 40 mg Ampicillin Sodium/Sulbactam (Sodium 1.5 gm/ Sodium Chloride) 50 mls @ 100 mls/ hr IV Q6H [facility] Last Admin: 01/02/18 09:01 Dose: 100 mls/hr Admin: 01/02/18 03:45 Dose: 100 mls/hr Admin: 01/01/18 20:53 Dose: 100 mls/hr Admin: 01/01/18 15:22 Dose: 100 mls/hr Admin: 01/01/18 09:07 Dose: 100 mls/hr Lorazepam (Ativan) 0.5 mg PO Q6H PRN PRN Reason: Anxiety Last Admin: 01/01/18 03:50 Dose: 0.5 mg Admin: 12/31/17 21:23 Dose: 0.5 mg Admin: 12/30/17 21:01 Dose: 0.5 mg Admin: 12/30/17 14:20 Dose: 0.5 mg Admin: 12/30/17 03:11 Dose: 0.5 mg Admin: 12/29/17 20:09 Dose: 0.5 mg Admin: 12/29/17 13:51 Dose: 0.5 mg Magnesium Hydroxide (Milk Of Magnesia) 30 ml PO TID PRN PRN Reason: Constipation Last Admin: 01/01/18 00:43 Dose: 30 ml Admin: 12/30/17 21:02 Dose: 30 ml Metformin HCl (Glucophage) 850 mg PO WITHBREAKFAST [facility] Last Admin: 01/02/18 08:03 Dose: 850 mg Neomycin/Polymyxin/Bacitracin (Triple Antibiotic Oint) 0 gm TOP DAILY [facility] Last Admin: 01/02/18 08:40 Dose: 1 applic Ondansetron HCl (Zofran) 4 mg IV Q4H PRN PRN Reason: Nausea/Vomiting Last Admin: 01/01/18 22:13 Dose: 4 mg Ondansetron HCl (Zofran Odt) 8 mg PO TID PRN PRN Reason: Nausea/Vomiting Oxycodone HCl (Oxycodone) 10 mg PO Q4H PRN PRN Reason: Breakthrough Pain Last Admin: 01/02/18 08:06 Dose: 10 mg Admin: 01/01/18 08:54 Dose: 10 mg Admin: 01/01/18 00:42 Dose: 10 mg Admin: 12/31/17 15:16 Dose: 10 mg Admin: 12/31/17 06:16 Dose: 10 mg Admin: 12/31/17 01:42 Dose: 10 mg Admin: 12/30/17 21:01 Dose: 10 mg Admin: 12/30/17 14:19 Dose: 10 mg Pantoprazole Sodium (Protonix) 40 mg PO DAILY@0600 TOMMY Last Admin: 01/02/18 06:01 Dose: 40 mg Admin: 01/01/18 06:21 Dose: 40 mg Admin: 12/31/17 06:16 Dose: 40 mg Admin: 12/30/17 10:08 Dose: 40 mg Polyethylene Glycol (Miralax) 17 gm PO DAILY PRN PRN Reason: Constipation Last Admin: 01/02/18 08:07 Dose: 17 gm Admin: 01/01/18 00:58 Dose: 17 gm Sodium Chloride (Saline Flush) 10 ml FLUSH ASDIRECTED PRN PRN Reason: Keep Vein Open Last Admin: 01/02/18 09:00 Dose: 10 ml Admin: 01/02/18 04:15 Dose: 10 ml Admin: 01/01/18 22:13 Dose: 10 ml Admin: 01/01/18 21:33 Dose: 10 ml Admin: 01/01/18 14:55 Dose: 10 ml Admin: 01/01/18 09:06 Dose: 10 ml Admin: 01/01/18 08:32 Dose: 10 ml Admin: 12/31/17 18:27 Dose: 10 ml Admin: 12/31/17 13:45 Dose: 10 ml Admin: 12/31/17 08:19 Dose: 10 ml Admin: 12/30/17 18:08 Dose: 10 ml Admin: 12/30/17 13:43 Dose: 10 ml Admin: 12/30/17 08:27 Dose: 10 ml Admin: 12/29/17 18:53 Dose: 10 ml Admin: 12/29/17 11:00 Dose: 10 ml Trazodone HCl (Trazodone) 100 mg PO BEDTIME TOMMY Last Admin: 01/01/18 20:59 Dose: 100 mg Admin: 12/31/17 21:42 Dose: 100 mg Labs: Laboratory Tests 12/29/17 12/29/17 12/29/17 Range/Units 09:40 09:40 09:40 WBC 9.3 (4.5-12.0) X10-3/uL RBC 3.68 L (4.30-5.75) x10(6)uL Hgb 10.3 L (11.5-15.5) g/dL Hct 30.8 (30.0-51.3) % MCV 83.9 (80-96) fL MCH 28.0 (27.7-33.6) pg MCHC 33.4 (32.2-35.4) g/dL RDW 13.8 (11.5-15.5) % Plt Count 874 H (125-369) X10(3)uL MPV 7.4 (7.4-10.4) fL Add Manual Diff Yes Neutrophils % (Manual) 63 (46-82) % Band Neutrophils % 7 H (0-6) % Lymphocytes % (Manual) 14 (13-37) % Monocytes % (Manual) 16 H (4-12) % Polychromasia PT 11.8 H (8.7-11.1) INR 1.17 H (0.89-1.13) Sodium 136 (135-145) mmol/L Potassium 4.3 (3.5-5.3) mmol/L Chloride 99 L (100-110) mmol/L Carbon Dioxide 27 (21-32) mmol/L BUN 18 (7-18) mg/dL Creatinine 1.1 (0.70-1.30) mg/dL Est Cr Clr Drug Dosing 59.90 mL/min Estimated GFR (MDRD) > 60 (>60) BUN/Creatinine Ratio 16.4 (9-20) Glucose 204 H (80-116) mg/dL Lactic Acid (0.4-2.2) mmol/L Calcium 8.8 (8.6-10.2) mg/dL Creatine Kinase 46 L (60-160) IU/L Troponin I (<0.017-0.056) ng/mL NT-Pro-B Natriuret Pep (<=450) pg/mL Urine Color (YELLOW) Urine Appearance (CLEAR) Urine pH (5.0-6.5) Ur Specific [place] (1.010-1.025) Urine Protein (NEGATIVE) mg/dL Urine Glucose (UA) (NEGATIVE) mg/dL Urine Ketones (NEGATIVE) mg/dL Urine Occult Blood (NEGATIVE) Urine Nitrite (NEGATIVE) Urine Bilirubin (NEGATIVE) Urine Urobilinogen (NEGATIVE) mg/dL Ur Leukocyte Esterase (NEGATIVE) Urine RBC (0) Urine WBC (0) Ur Squamous Epith Cells (NS,R,O) Urine Bacteria (NS) Hyaline Casts (NS) Urine Mucus (NS) 12/29/17 12/29/17 12/29/17 Range/Units 09:40 09:40 10:14 WBC (4.5-12.0) X10-3/uL RBC (4.30-5.75) x10(6)uL Hgb (11.5-15.5) g/dL Hct (30.0-51.3) % MCV (80-96) fL MCH (27.7-33.6) pg MCHC (32.2-35.4) g/dL RDW (11.5-15.5) % Plt Count (125-369) X10(3)uL MPV (7.4-10.4) fL Add Manual Diff Neutrophils % (Manual) (46-82) % Band Neutrophils % (0-6) % Lymphocytes % (Manual) (13-37) % Monocytes % (Manual) (4-12) % Polychromasia PT (8.7-11.1) INR (0.89-1.13) Sodium (135-145) mmol/L Potassium (3.5-5.3) mmol/L Chloride (100-110) mmol/L Carbon Dioxide (21-32) mmol/L BUN (7-18) mg/dL Creatinine (0.70-1.30) mg/dL Est Cr Clr Drug Dosing mL/min Estimated GFR (MDRD) (>60) BUN/Creatinine Ratio (9-20) Glucose (80-116) mg/dL Lactic Acid 2.3 H (0.4-2.2) mmol/L Calcium (8.6-10.2) mg/dL Creatine Kinase (60-160) IU/L Troponin I < 0.017 L (<0.017-0.056) ng/mL NT-Pro-B Natriuret Pep 665 H (<=450) pg/mL Urine Color Yellow (YELLOW) Urine Appearance Clear (CLEAR) Urine pH 5.0 (5.0-6.5) Ur Specific [place] 1.015 (1.010-1.025) Urine Protein Negative (NEGATIVE) mg/dL Urine Glucose (UA) 50 H (NEGATIVE) mg/dL Urine Ketones Negative (NEGATIVE) mg/dL Urine Occult Blood Negative (NEGATIVE) Urine Nitrite Negative (NEGATIVE) Urine Bilirubin Small H (NEGATIVE) Urine Urobilinogen 1 H (NEGATIVE) mg/dL Ur Leukocyte Esterase Negative (NEGATIVE) Urine RBC 0-5 (0) Urine WBC 0-5 (0) Ur Squamous Epith Cells Few H (NS,R,O) Urine Bacteria Few H (NS) Hyaline Casts Few H (NS) Urine Mucus Many H (NS) Meds: Medications Generic Name Dose Route Start Last Admin Trade Name Freq PRN Reason Stop Dose Admin Clotrimazole 0 gm 12/30/17 09:00 01/02/18 08:08 Clotrimazole 1% TOP Not Given BID TOMMY Docusate Sodium 100 mg 12/29/17 11:13 Colace PO BID PRN Constipation Duloxetine HCl 60 mg 01/01/18 09:00 01/02/18 08:03 Cymbalta PO 60 mg DAILY TOMMY Administration Enoxaparin Sodium 110 mg 01/01/18 09:00 01/02/18 08:03 Lovenox SUBCUT 110 mg Q12H TOMMY Administration Fentanyl 12 mcg 01/01/18 08:30 01/01/18 08:52 Duragesic TRDERM 12 mcg Q72H TOMMY Administration Fesoterodine Fumarate 8 mg 12/30/17 09:00 01/02/18 08:06 Toviaz PO 8 mg DAILY TOMMY Administration Furosemide 40 mg 12/29/17 17:30 01/02/18 09:05 Lasix IVPUSH 40 mg BIDDIURETIC TOMMY Administration Ampicillin Sodium/Sulbactam 50 mls @ 100 mls/hr 01/01/18 09:00 01/02/18 09:01 Sodium 1.5 gm/ Sodium Chloride IV 100 mls/hr Q6H TOMMY Administration Lorazepam 0.5 mg 12/29/17 13:13 01/01/18 03:50 Ativan PO 0.5 mg Q6H PRN Administration Anxiety Magnesium Hydroxide 30 ml 12/30/17 08:22 01/01/18 00:43 Milk Of Magnesia PO 30 ml TID PRN Administration Constipation Metformin HCl 850 mg 12/30/17 09:00 01/02/18 08:03 Glucophage PO 850 mg WITHBREAKFAST TOMMY Administration Neomycin/Polymyxin/Bacitracin 0 gm 01/02/18 09:00 01/02/18 08:40 Triple Antibiotic Oint TOP 1 applic DAILY TOMMY Administration Ondansetron HCl 4 mg 12/29/17 11:13 01/01/18 22:13 Zofran IV 4 mg Q4H PRN Administration Nausea/Vomiting Ondansetron HCl 8 mg 12/30/17 09:02 Zofran Odt PO TID PRN Nausea/Vomiting Oxycodone HCl 10 mg 12/30/17 08:22 01/02/18 08:06 Oxycodone PO 10 mg Q4H PRN Administration Breakthrough Pain Pantoprazole Sodium 40 mg 12/30/17 09:00 01/02/18 06:01 Protonix PO 40 mg DAILY@0600 TOMMY Administration Polyethylene Glycol 17 gm 12/30/17 08:22 01/02/18 08:07 Miralax PO 17 gm DAILY PRN Administration Constipation Sodium Chloride 10 ml 12/29/17 11:13 01/02/18 09:00 Saline Flush FLUSH 10 ml ASDIRECTED PRN Administration Keep Vein Open Trazodone HCl 100 mg 12/31/17 21:00 01/01/18 20:59 Trazodone PO 100 mg BEDTIME TOMMY Administration Discontinued Medications Generic Name Dose Route Start Last Admin Trade Name Freq PRN Reason Stop Dose Admin Albuterol/Ipratropium Confirm 12/29/17 09:40 12/29/17 09:50 Duoneb 3.0-0.5 Mg/3 Ml Administered 12/29/17 09:41 3 ml Dose Administration 3 ml .ROUTE .STK-MED ONE Albuterol/Ipratropium 3 ml 12/29/17 10:23 12/29/17 14:34 Duoneb 3.0-0.5 Mg/3 Ml NEB 12/29/17 10:24 Not Given ONETIME ONE Ceftriaxone Sodium 1,000 mg 12/30/17 18:00 12/31/17 18:21 Rocephin IV 1,000 mg Q24H TOMMY Administration Duloxetine HCl 30 mg 12/30/17 09:00 12/31/17 09:17 Cymbalta PO 30 mg DAILY TOMMY Administration Enoxaparin Sodium 110 mg 12/30/17 12:30 12/31/17 21:24 Lovenox SUBCUT 110 mg BID TOMMY Administration Levofloxacin/Dextrose 750 mg/ 150 mls @ 100 mls/hr 12/29/17 10:23 12/29/17 11 :08 Premix IV 12/29/17 11:52 100 mls/hr ONETIME ONE Administration Ceftriaxone Sodium 1,000 mg/ 50 mls @ 100 mls/hr 12/29/17 18:00 12/29/17 18: 50 Sodium Chloride IV 100 mls/hr Q24H TOMMY Administration Iopamidol 150 ml 12/29/17 13:08 12/29/17 13:33 Isovue-370 (76%) IV 12/29/17 13:09 127 ml ONETIME ONE Administration Iopamidol 100 ml 12/30/17 10:54 12/30/17 11:13 Isovue-370 (76%) IV 12/30/17 10:55 100 ml . DIRECTED ONE Administration Morphine Sulfate 30 mg 12/29/17 21:00 12/30/17 08:11 Ms Contin PO 30 mg BID TOMMY Administration Naproxen 500 mg 12/30/17 09:00 12/30/17 10:08 Naprosyn PO 500 mg Q12H TOMMY Administration Oxycodone/Acetaminophen 2 tab 12/29/17 16:38 12/30/17 08:11 Percocet 325-5 Mg PO 2 tab Q4H PRN Administration Pain Trazodone HCl 50 mg 12/30/17 21:00 12/30/17 21:01 Trazodone PO 50 mg BEDTIME TOMMY Administration Warfarin Sodium 10 mg 12/30/17 13:15 12/30/17 13:27 Coumadin PO 12/30/17 13:16 10 mg ONETIME ONE Administration Warfarin Sodium 5 mg 12/31/17 16:00 12/31/17 15:19 Coumadin PO 12/31/17 16:01 5 mg ONETIME ONE Administration Departure - Departure Time of Disposition: 11:00 Disposition: Admitted As Inpatient 66 Condition: Fair Clinical Impression: Pneumonia - Discharge Information
[2017-12-29] MEDS: Sodium Chloride 0.9% 10 ML Syringe FLUSH PRN ×2 (11:00→18:53)
[2017-12-29] MEDS ORDERED: Ondansetron 4 MG/2 ML SDV IV PRN (11:13)
[2017-12-29] MEDS ORDERED: Docusate Sodium 100 MG Cap PO PRN (11:13)
--- NOTE | 2017-12-29 11:44 | CR ---
INDICATION: Short of breath. CHEST: An AP upright view of the chest was obtained in a wheelchair 2017. No comparisons were available. The heart did not appear enlarged. No definite evidence of CHF is seen. Heavy markings are noted at the medial lung bases bilaterally and could represent minimal patchy areas of pneumonia and/or fibrosis and should be correlated clinically. No gross consolidating pneumonia was identified elsewhere. The lungs appear to be somewhat hyperaerated. IMPRESSION: 1. Difficult to exclude minimal patchy bronchopneumonia in the medial lung bases - correlate clinically. 2. ASD aorta with calcification in the arch and tortuosity. 3. Cannot exclude COPD - correlate clinically. Report was given by phone to Dr. Lakhwinder henley a.m., 12/29/2017. [place]
[2017-12-29] MEDS ORDERED: Iopamidol 755 MG/ML 150 ML Bottle IV ONE (13:08)
[2017-12-29] MEDS: LORazepam 0.5 MG Tab PO PRN ×2 (13:51→20:09)
--- NOTE | 2017-12-29 14:55 | CT ---
INDICATION: Redness, mass, question abscess. CT RIGHT FOOT: Spiral 0.63 mm axial sections were obtained through the feet ( with 127 mL Isovue 370 at 1.5 mL/second) with sagittal and coronal reconstructions. Examination then needed to be repeated, due to patient movement. No comparison studies were available. This study is obtained 12/29/2017. Total exam DLP = 725.66 plus 719.62 mGy-cm for the 2 runs. Study revealed soft tissue swelling on the dorsum of both feet but more prominently in the right foot. However, no definite abscess formation could be identified. Findings are felt to be most likely on the basis of cellulitis rather than abscess. No definite underlying osteomyelitis is identified. If early or minimal osteomyelitis is suspected clinically, 3-phase nuclear bone imaging may be helpful for further evaluation. The examination was obtained with difficulty and is somewhat limited due to patients inability to cooperate with the examination. Report was called to Dr. Keane at 1410 hours on 12/29/2017. [place]
[2017-12-29] MEDS: Acetaminophen/oxyCODONE 325-5 MG Tab PO PRN ×2 (16:51→23:00)
--- NOTE | 2017-12-29 17:28 | PCM.HP ---
H&P History of Present Illness - General Date of Service: 12/29/17 Admit Problem/Dx: Admission Diagnosis/Problem Admission Diagnosis/Problem Pneumonia Source of Information: Patient History Limitations: Reports: No Limitations - History of Present Illness Initial Comments - Free Text/Narative: Vidal is a 77-year-old male that came in because of shortness of breath. His symptoms have progressively gotten worse over the last 2-3 days He alsohas with chest pain and tightness. In addition his legs are markedly swollen. 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 general Pain Score (Numeric/FACES): 5 - Related Data Allergies/Adverse Reactions: Allergies Allergy/AdvReac Type Severity Reaction Status Date / Time No Known Allergies Allergy Verified 12/29/17 09:33 Home Medications: Home Meds Calcium Citrate/Vitamin D3 [Calcium Citrate - Vit D Tablet] 2 tab PO BIDMEALS [History] Fesoterodine Fumarate [Toviaz] 8 mg PO DAILY 12/07/17 [History] Magnesium Hydroxide [Milk of Magnesia] 30 ml PO TID PRN 12/07/17 [History] Polyethylene Glycol 3350 [MiraLAX] 17 gm PO DAILY PRN 12/07/17 [History] Sennosides/Docusate Sodium [Senna S Tablet] 2 tab PO BID 12/07/17 [History] Simvastatin [Zocor] 20 mg PO BEDTIME 12/07/17 [History] Clotrimazole [Clotrimazole 1%] 1 applic TOP BID 12/13/17 [History] Ondansetron HCl [Zofran] 8 mg PO TID PRN #30 tablet 12/22/17 [Rx] metFORMIN [Glucophage] 850 mg PO DAILY #30 tablet 12/22/17 [Rx] Omeprazole 20 mg PO DAILY 12/25/17 [History] Prochlorperazine [Compazine] 10 mg PO QID PRN 12/25/17 [History] Morphine [MS Contin] 30 mg PO BID #60 tab.er 12/27/17 [Rx] oxyCODONE 10 mg PO Q4H PRN #60 tablet 12/27/17 [Rx] Past Medical History Cardiovascular History: Reports: High Cholesterol Gastrointestinal History: Reports: Colon Polyp Genitourinary History: Reports: Other (See Below) Other Genitourinary History: Bladder cancer Musculoskeletal History: Reports: Other (See Below) Other Musculoskeletal History: 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 Endocrine/Metabolic History: Reports: Diabetes, Type II Immunologic History: Reports: Immunosuppression Oncologic (Cancer) History: Reports: Bladder, Other (See Below) Other Oncologic History: skin - Infectious Disease History Infectious Disease History: Reports: Mononucleosis, Rheumatic Fever - Past Surgical History GI Surgical History: Reports: Colonoscopy Male Surgical History: Reports: Other (See Below) Other Male Surgeries/Procedures: laser prostatem surgery-10 years ago Musculoskeletal Surgical History: Reports: Other (See Below) Other Musculoskeletal Surgeries/Procedures:: lumbar fusion 1965 Oncologic Surgical History: Reports: Other (See Below) Other Oncologic Surgeries/Procedures: bladder biopsy. bone mets Dermatological Surgical History: Reports: Other (See Below) Social & Family History - Family History Family Medical History: Noncontributory - Tobacco Use Smoking Status *Q: Never Smoker Used Tobacco, but Quit: Yes Month Tobacco Last Used: 0 Second Hand Smoke Exposure: No - Caffeine Use Caffeine Use: Reports: None Other Caffeine Use: 1-2 per day Caffeine Use Comment: 2 cups a day - Alcohol Use Days Per Week of Alcohol Use: 0 - Recreational Drug Use Recreational Drug Use: No H&P Review of Systems - Review of Systems: Review Of Systems: ROS reveals no pertinent complaints other than HPI. Exam - Exam Exam: See Below - Vital Signs Vital Signs: Last Vital Signs Temp 97.5 F 12/29/17 15:30 Pulse 102 H 12/29/17 15:30 Resp 19 12/29/17 15:30 BP 139/92 H 12/29/17 15:30 Pulse Ox 96 12/29/17 15:30 Weight: 110.858 kg - Exam General: Alert, Oriented, 4 HEENT: PERRLA, Hearing Intact, Mucosa Moist & [place], Nares Patent, Normal Nasal Septum, Posterior Pharynx Clear, Conjunctiva Clear, EOMI, EACs Clear, TMs Clear Neck: Supple, Trachea Midline, 2 Lungs: Clear to Auscultation, Normal Respiratory Effort Cardiovascular: Regular Rate, Regular Rhythm GI/Abdominal Exam: Normal Bowel Sounds, Soft, Non-Tender, No Organomegaly, No Distention, No Abnormal Bruit, No Mass, Pelvis Stable (Male) Exam: No Hernia, Normal Inspection, Normal Prostate, Circumcised Rectal (Males) Exam: Normal Exam, Normal Rectal Tone, Prostate Normal Back Exam: Normal Inspection, Full Range of Motion, NT Extremities: Normal Inspection, Normal Range of Motion, Non-Tender, Pedal Edema , Joint Swelling, Redness Skin: Warm, Dry, Intact Neurological: Cranial Nerves Intact, Reflexes Equal Bilateral Neuro Extensive - Mental Status: Alert, Oriented x3, Normal Mood/Affect, Normal Cognition Neuro Extensive - Motor, Sensory, Reflexes: CN II-XII Intact, Normal Gait, Normal Reflexes Psychiatric: Alert, Normal Affect, Normal Mood - Patient Data Result Diagrams: 12/29/17 09:40 12/29/17 09:40 *Q Meaningful Use (ADM) - VTE *Q VTE Criteria *Q: - Stroke *Q Stroke Criteria *Q: - AMI *Q AMI Criteria *Q: - Problem List (1) Cellulitis SNOMED Code(s): 926980531 ICD Code: L03.90 - CELLULITIS, UNSPECIFIED Status: Acute Current Visit: Yes Qualifiers: Site of cellulitis: extremity Laterality: unspecified laterality (2) Complaint of debility and malaise SNOMED Code(s): 131389791 ICD Code: R53.81 - OTHER MALAISE Status: Acute Current Visit: No (3) KIERA (generalized anxiety disorder) SNOMED Code(s): 54800326 ICD Code: F41.1 - GENERALIZED ANXIETY DISORDER Status: Acute Current Visit: No (4) Obesity SNOMED Code(s): 643871947 ICD Code: E66.9 - OBESITY, UNSPECIFIED Status: Acute Current Visit: No Qualifiers: Obesity type: due to excess calories Body mass index: BMI 34.0-34.9 (5) Pain management SNOMED Code(s): 141067097 ICD Code: R52 - PAIN, UNSPECIFIED Status: Acute Priority: High Current Visit: No (6) Bone metastases Status: Chronic Current Visit: No (7) Palliative care status SNOMED Code(s): 067781394 ICD Code: Z51.5 - ENCOUNTER FOR PALLIATIVE CARE Status: Chronic Current Visit: No (8) Peripheral edema SNOMED Code(s): 974028099 ICD Code: R60.9 - EDEMA, UNSPECIFIED Status: Chronic Current Visit: No (9) Bladder cancer SNOMED Code(s): 869415769 ICD Code: C67.9 - MALIGNANT NEOPLASM OF BLADDER, UNSPECIFIED Status: Acute Current Visit: Yes Qualifiers: Bladder location: unspecified site Qualified Code(s): C67.9 - Malignant neoplasm of bladder, unspecified Problem List Initiated/Reviewed/Updated: Yes Orders Last 24hrs: Active Orders 24 hr Category Date Time Status Up With Assistance [RC] ASDIRECTED Care 12/29/17 17:16 Active Consult to Palliative Care [CONS] Routine Cons 12/29/17 13:15 Active PT Evaluation and Treatment [CONS] Routine Cons 12/29/17 17:24 Ordered Regular Diet [DIET] Diet 12/30/17 Dinner Active CBC WITH AUTO DIFF [HEME] AM Lab 12/30/17 05:11 Ordered COMPREHENSIVE METABOLIC PN,CMP [CHEM] AM Lab 12/30/17 05:11 Ordered PRO B-TYPE NATRIUR PEPT,BNPPRO [CHEM] DAILY Lab 12/30/17 05:11 Ordered PRO B-TYPE NATRIUR PEPT,BNPPRO [CHEM] DAILY Lab 12/31/17 05:11 Ordered PRO B-TYPE NATRIUR PEPT,BNPPRO [CHEM] DAILY Lab 01/01/18 05:11 Ordered Acetaminophen/oxyCODONE [Percocet 325-5 MG] Med 12/29/17 16:38 Active 2 tab PO Q4H PRN Furosemide [Lasix] Med 12/29/17 17:30 Ordered 40 mg IVPUSH BID LORazepam [Ativan] Med 12/29/17 13:13 Active 0.5 mg PO Q6H PRN Morphine [MS Contin] Med 12/29/17 21:00 Active 30 mg PO BID cefTRIAXone [Rocephin] 1,000 mg Med 12/29/17 17:30 Ordered Sodium Chloride 0.9% [Normal Saline] 50 ml IV Q24H Medication Orders Docusate Sodium (Colace) 100 mg PO BID PRN PRN Reason: Constipation Furosemide (Lasix) 40 mg IVPUSH BID TOMMY Ceftriaxone Sodium 1,000 mg/ (Sodium Chloride) 50 mls @ 100 mls/hr IV Q24H TOMMY Lorazepam (Ativan) 0.5 mg PO Q6H PRN PRN Reason: Anxiety Last Admin: 12/29/17 13:51 Dose: 0.5 mg Morphine Sulfate (Ms Contin) 30 mg PO BID TOMMY Ondansetron HCl (Zofran) 4 mg IV Q4H PRN PRN Reason: Nausea/Vomiting Oxycodone/Acetaminophen (Percocet 325-5 Mg) 2 tab PO Q4H PRN PRN Reason: Pain Last Admin: 12/29/17 16:51 Dose: 2 tab Sodium Chloride (Saline Flush) 10 ml FLUSH ASDIRECTED PRN PRN Reason: Keep Vein Open Last Admin: 12/29/17 11:00 Dose: 10 ml Assessment/Plan Comment:: Vidal has cellulitis and edema of the legs. I suspect that he might have CHF even though his BNP is only 600. I will start with IV Lasix, advised elevation and wrapping of the legs if possible. I've elected to treat him with Rocephin 1 g every day, and we'll continue with pain control with his home medications of oxycodone and MS Contin. I've also decided to give lorazepam as needed to help with anxiety. Vidal prefers to go to senior care and would rather quit the chemotherapy palliative that he is getting at this time to be able to obtain a senior care admission.
[2017-12-29] MEDS ORDERED: cefTRIAXone 1,000 MG in Sodium Chloride 0.9% 50 ML IV SCH (18:00)
[2017-12-29] MEDS: Furosemide 40 MG/4 ML VIAL IVPUSH SCH (18:50)
[2017-12-29] MEDS: Morphine 30 MG Tab.ER PO SCH (20:09)
[2017-12-30] MEDS: Acetaminophen/oxyCODONE 325-5 MG Tab PO PRN ×2 (03:10→08:11)
[2017-12-30] MEDS: LORazepam 0.5 MG Tab PO PRN ×3 (03:11→21:01)
[2017-12-30] MEDS: Morphine 30 MG Tab.ER PO SCH (08:11)
[2017-12-30] MEDS: Furosemide 40 MG/4 ML VIAL IVPUSH SCH ×2 (08:26→13:42)
[2017-12-30] MEDS: Sodium Chloride 0.9% 10 ML Syringe FLUSH PRN ×3 (08:27→18:08)
--- NOTE | 2017-12-30 08:29 | PCM.PN ---
- General Info Date of Service: 12/30/17 Admission Dx/Problem (Free Text): Admission Diagnosis/Problem Admission Diagnosis/Problem Pneumonia Subjective Update: Vidal did not sleep very well last night. He still very anxious restless, and he complains of a choking sensation when he lays down. He feels short of breath. He had quite a bit of diuresis, however. - Review of Systems HEENT: Reports: No Symptoms Pulmonary: Reports: Shortness of Breath Cardiovascular: Reports: Dyspnea on Exertion, Orthopnea. Denies: Chest Pain, Palpitations Gastrointestinal: Reports: No Symptoms Genitourinary: Reports: No Symptoms - Patient Data Vitals - Most Recent: Last Vital Signs Temp 97.7 F 12/29/17 20:00 Pulse 55 L 12/29/17 20:00 Resp 18 12/29/17 20:00 BP 131/79 12/29/17 20:00 Pulse Ox 94 L 12/29/17 20:00 Weight - Most Recent: 110.858 kg Lab Results Last 24 Hours: Laboratory Results - last 24 hr 12/30/17 12/30/17 12/30/17 Range/Units 06:30 06:30 06:30 WBC 10.1 (4.5-12.0) X10-3/uL RBC 3.53 L (4.30-5.75) x10(6)uL Hgb 9.9 L (11.5-15.5) g/dL Hct 30.1 (30.0-51.3) % MCV 85.3 (80-96) fL MCH 28.1 (27.7-33.6) pg MCHC 32.9 (32.2-35.4) g/dL RDW 13.8 (11.5-15.5) % Plt Count 796 H (125-369) X10(3)uL MPV 7.7 (7.4-10.4) fL Add Manual Diff Yes Neutrophils % (Manual) 71 (46-82) % Band Neutrophils % 3 (0-6) % Lymphocytes % (Manual) 10 L (13-37) % Monocytes % (Manual) 16 H (4-12) % Plt Morphology Comment See note Polychromasia Occasional Anisocytosis Few Sodium 138 (135-145) mmol/L Potassium 4.3 (3.5-5.3) mmol/L Chloride 100 (100-110) mmol/L Carbon Dioxide 31 (21-32) mmol/L BUN 17 (7-18) mg/dL Creatinine 1.2 (0.70-1.30) mg/dL Est Cr Clr Drug Dosing 54.91 mL/min Estimated GFR (MDRD) 59 L (>60) BUN/Creatinine Ratio 14.2 (9-20) Glucose 125 H (80-116) mg/dL Calcium 9.4 (8.6-10.2) mg/dL Total Bilirubin 0.2 (0.1-1.3) mg/dL AST 26 H (5-25) IU/L ALT 21 D (12-36) U/L Alkaline Phosphatase 97 (56-112) IU/L NT-Pro-B Natriuret Pep 803 H (<=450) pg/mL Total Protein 6.6 (6.0-8.0) g/dL Albumin 2.2 L (3.2-4.6) g/dL Globulin 4.4 g/dL Albumin/Globulin Ratio 0.5 Med Orders - Current: Current Medications Ceftriaxone Sodium (Rocephin) 1,000 mg IV Q24H [facility] Clotrimazole (Clotrimazole 1%) gm TOP BID [facility] Docusate Sodium (Colace) 100 mg PO BID PRN PRN Reason: Constipation Duloxetine HCl (Cymbalta) 30 mg PO DAILY [facility] Furosemide (Lasix) 40 mg IVPUSH BIDDIURETIC [facility] Last Admin: 12/29/17 18:50 Dose: 40 mg Lorazepam (Ativan) 0.5 mg PO Q6H PRN PRN Reason: Anxiety Last Admin: 12/30/17 03:11 Dose: 0.5 mg Magnesium Hydroxide (Milk Of Magnesia) 30 ml PO TID PRN PRN Reason: Constipation Metformin HCl (Glucophage) 850 mg PO DAILY [facility] Morphine Sulfate (Ms Contin) 30 mg PO BID [facility] Last Admin: 12/30/17 08:11 Dose: 30 mg Non-Formulary Medication (Fesoterodine Fumarate [Toviaz]) 8 mg PO DAILY [facility] Non-Formulary Medication (Omeprazole [Omeprazole]) 20 mg PO DAILY [facility] Non-Formulary Medication (Ondansetron Hcl [Zofran]) 8 mg PO TID PRN PRN Reason: Nausea/Vomiting Ondansetron HCl (Zofran) 4 mg IV Q4H PRN PRN Reason: Nausea/Vomiting Oxycodone HCl (Oxycodone) 10 mg PO Q4H PRN PRN Reason: Breakthrough Pain Oxycodone/Acetaminophen (Percocet 325-5 Mg) 2 tab PO Q4H PRN PRN Reason: Pain Last Admin: 12/30/17 08:11 Dose: 2 tab Polyethylene Glycol (Miralax) 17 gm PO DAILY PRN PRN Reason: Constipation Sodium Chloride (Saline Flush) 10 ml FLUSH ASDIRECTED PRN PRN Reason: Keep Vein Open Last Admin: 12/29/17 18:53 Dose: 10 ml Discontinued Medications Albuterol/Ipratropium (Duoneb 3.0-0.5 Mg/3 Ml) Confirm Administered Dose 3 ml .ROUTE .STK-MED ONE Stop: 12/29/17 09:41 Last Admin: 12/29/17 09:50 Dose: 3 ml Albuterol/Ipratropium (Duoneb 3.0-0.5 Mg/3 Ml) 3 ml NEB ONETIME ONE Stop: 12/29/17 10:24 Last Admin: 12/29/17 14:34 Dose: Not Given Levofloxacin/Dextrose 750 mg/ (Premix) 150 mls @ 100 mls/hr IV ONETIME ONE Stop: 12/29/17 11:52 Last Admin: 12/29/17 11:08 Dose: 100 mls/hr Ceftriaxone Sodium 1,000 mg/ (Sodium Chloride) 50 mls @ 100 mls/hr IV Q24H TOMMY Last Admin: 12/29/17 18:50 Dose: 100 mls/hr Iopamidol (Isovue-370 (76%)) 150 ml IV ONETIME ONE Stop: 12/29/17 13:09 Last Admin: 12/29/17 13:33 Dose: 127 ml - Exam Quality Assessment: No: Supplemental Oxygen General: Alert, Oriented Neck: Supple, Trachea Midline Lungs: Clear to Auscultation Cardiovascular: Regular Rate Extremities: Pedal Edema Psy/Mental Status: Depressed - Problem List & Annotations (1) Cellulitis SNOMED Code(s): 684355974 Code(s): L03.90 - CELLULITIS, UNSPECIFIED Status: Acute Current Visit: Yes Qualifiers: Site of cellulitis: extremity Laterality: unspecified laterality (2) Complaint of debility and malaise SNOMED Code(s): 391704885 Code(s): R53.81 - OTHER MALAISE Status: Acute Current Visit: No (3) KIERA (generalized anxiety disorder) SNOMED Code(s): 20028835 Code(s): F41.1 - GENERALIZED ANXIETY DISORDER Status: Acute Current Visit : No (4) Obesity SNOMED Code(s): 797581763 Code(s): E66.9 - OBESITY, UNSPECIFIED Status: Acute Current Visit: No Qualifiers: Obesity type: due to excess calories Body mass index: BMI 34.0-34.9 (5) Pain management SNOMED Code(s): 854135105 Code(s): R52 - PAIN, UNSPECIFIED Status: Acute Priority: High Current Visit: No (6) Bone metastases Status: Chronic Current Visit: No (7) Palliative care status SNOMED Code(s): 704309636 Code(s): Z51.5 - ENCOUNTER FOR PALLIATIVE CARE Status: Chronic Current Visit: No (8) Peripheral edema SNOMED Code(s): 133474863 Code(s): R60.9 - EDEMA, UNSPECIFIED Status: Chronic Current Visit: No (9) Bladder cancer SNOMED Code(s): 540067843 Code(s): C67.9 - MALIGNANT NEOPLASM OF BLADDER, UNSPECIFIED Status: Acute Current Visit: Yes Qualifiers: Bladder location: unspecified site Qualified Code(s): C67.9 - Malignant neoplasm of bladder, unspecified (10) SOB (shortness of breath) SNOMED Code(s): 864016000 Code(s): R06.02 - SHORTNESS OF BREATH Status: Acute Current Visit: Yes (11) Insomnia SNOMED Code(s): 391753943 Code(s): G47.00 - INSOMNIA, UNSPECIFIED Status: Acute Current Visit: Yes Qualifiers: Insomnia type: primary Qualified Code(s): F51.01 - Primary insomnia - Problem List Review Problem List Initiated/Reviewed/Updated: Yes - My Orders Last 24 Hours: My Active Orders 12/29/17 13:13 LORazepam [Ativan] 0.5 mg PO Q6H PRN 12/29/17 13:15 Consult to Palliative Care [CONS] Routine 12/29/17 16:38 Acetaminophen/oxyCODONE [Percocet 325-5 MG] 2 tab PO Q4H PRN 12/29/17 17:24 PT Evaluation and Treatment [CONS] Routine 12/29/17 17:30 Furosemide [Lasix] 40 mg IVPUSH BIDDIURETIC 12/29/17 21:00 Morphine [MS Contin] 30 mg PO BID 12/30/17 08:22 Magnesium Hydroxide [Milk of Magnesia] 30 ml PO TID PRN Ondansetron HCl [Zofran] 8 mg PO TID PRN Polyethylene Glycol 3350 [MiraLAX] 17 gm PO DAILY PRN oxyCODONE 10 mg PO Q4H PRN 12/30/17 08:24 Chest w Cont [CT] Routine 12/30/17 09:00 Clotrimazole [Clotrimazole 1%] 1 applic TOP BID DULoxetine [Cymbalta] 30 mg PO DAILY Fesoterodine Fumarate [Toviaz] 8 mg PO DAILY Omeprazole [Omeprazole] 20 mg PO DAILY metFORMIN [Glucophage] 850 mg PO DAILY 12/30/17 18:00 cefTRIAXone [Rocephin] 1,000 mg IV Q24H 12/30/17 Dinner Regular Diet [DIET] 12/31/17 05:11 PRO B-TYPE NATRIUR PEPT,BNPPRO [CHEM] DAILY 01/01/18 05:11 PRO B-TYPE NATRIUR PEPT,BNPPRO [CHEM] DAILY - Plan Plan:: I will obtain a CT of the chest to make she does not have a PE. We'll continue the Restasis because I feel these shortness of breath and orthopnea probably due to CHF. I will start Cymbalta 30 mg a day to help both with chronic pain and anxiety and depression he appears quite depressed this morning. I'll also give Trazadone every night to help with sleep
[2017-12-30] MEDS ORDERED: Naproxen 500 MG Tab PO SCH (09:00)
[2017-12-30] MEDS ORDERED: Ondansetron 8 MG Tab.DIS PO PRN (09:02)
[2017-12-30] MEDS: DULoxetine 30 MG Cap PO SCH (10:08)
[2017-12-30] MEDS: Pantoprazole 40 MG Tab.CR PO SCH (10:08)
[2017-12-30] MEDS: Fesoterodine Fumarate 4 MG Tab PO SCH (10:08)
[2017-12-30] MEDS: Clotrimazole 1% Crm 15 GM Tube TOP SCH ×2 (10:18→20:59)
[2017-12-30] MEDS ORDERED: Iopamidol 755 Mg/ML 100 ML Bottle IV ONE (10:54)
[2017-12-30] MEDS: Enoxaparin 120 MG/0.8 ML Syringe SUBCUT SCH ×2 (13:04→21:00)
[2017-12-30] MEDS ORDERED: Warfarin 10 MG Tab PO ONE (13:15)
[2017-12-30] MEDS: oxyCODONE 5 MG Tab PO PRN ×2 (14:19→21:01)
[2017-12-30] MEDS: cefTRIAXone 1,000 MG VIAL IV SCH (18:08)
[2017-12-30] MEDS ORDERED: traZODone 50 MG Tab PO SCH (21:00)
[2017-12-30] MEDS: Magnesium Hydroxide 400 MG/5 ML Susp 30 ML Cup PO PRN (21:02)
[2017-12-31] MEDS: oxyCODONE 5 MG Tab PO PRN ×3 (01:42→15:16)
[2017-12-31] MEDS: Pantoprazole 40 MG Tab.CR PO SCH (06:16)
[2017-12-31] MEDS: Furosemide 40 MG/4 ML VIAL IVPUSH SCH ×2 (08:19→13:44)
[2017-12-31] MEDS: Sodium Chloride 0.9% 10 ML Syringe FLUSH PRN ×3 (08:19→18:27)
--- NOTE | 2017-12-31 08:39 | PCM.PN ---
- General Info Date of Service: 12/31/17 Subjective Update: Vidal complains of feeling weak. Is shortness of breath has improved however the CT scan of the chest done yesterday revealed pulmonary embolism. His leg edema has also improved some. He denies chest pains. He was able to sleep at least 4 hours last night. - Review of Systems Cardiovascular: Reports: No Symptoms. Denies: Chest Pain - Patient Data Vitals - Most Recent: Last Vital Signs Temp 97.8 F 12/31/17 08:00 Pulse 93 12/31/17 08:00 Resp 16 12/31/17 08:00 BP 144/86 H 12/31/17 08:00 Pulse Ox 94 L 12/31/17 08:00 Weight - Most Recent: 110.858 kg I&O - Last 24 Hours: Intake & Output 12/30/17 12/31/17 12/31/17 22:59 06:59 14:59 Intake Total 300 Balance 300 Lab Results Last 24 Hours: Laboratory Results - last 24 hr 12/30/17 12/31/17 12/31/17 Range/Units 12:20 06:15 06:15 WBC (4.5-12.0) X10-3/uL RBC (4.30-5.75) x10(6)uL Hgb (11.5-15.5) g/dL Hct (30.0-51.3) % MCV (80-96) fL MCH (27.7-33.6) pg MCHC (32.2-35.4) g/dL RDW (11.5-15.5) % Plt Count (125-369) X10(3)uL MPV (7.4-10.4) fL Add Manual Diff Neutrophils % (Manual) (46-82) % Lymphocytes % (Manual) (13-37) % Monocytes % (Manual) (4-12) % Eosinophils % (Manual) (0-5) % Plt Morphology Comment Anisocytosis PT 12.1 H (8.7-11.1) INR 1.20 H (0.89-1.13) Sodium 137 (135-145) mmol/L Potassium 4.6 (3.5-5.3) mmol/L Chloride 99 L (100-110) mmol/L Carbon Dioxide 32 (21-32) mmol/L BUN 20 H (7-18) mg/dL Creatinine 1.1 (0.70-1.30) mg/dL Est Cr Clr Drug Dosing 59.90 mL/min Estimated GFR (MDRD) > 60 (>60) BUN/Creatinine Ratio 18.2 (9-20) Glucose 115 (80-116) mg/dL Calcium 8.9 (8.6-10.2) mg/dL Total Bilirubin 0.2 (0.1-1.3) mg/dL AST 31 H D (5-25) IU/L ALT 20 (12-36) U/L Alkaline Phosphatase 99 (56-112) IU/L NT-Pro-B Natriuret Pep 452 H (<=450) pg/mL Total Protein 6.5 (6.0-8.0) g/dL Albumin 2.1 L (3.2-4.6) g/dL Globulin 4.4 g/dL Albumin/Globulin Ratio 0.5 12/31/18 // Range/Units 06:15 06:15 WBC 11.2 (4.5-12.0) X10-3/uL RBC 3.60 L (4.30-5.75) x10(6)uL Hgb 10.4 L (11.5-15.5) g/dL Hct 30.5 (30.0-51.3) % MCV 84.7 (80-96) fL MCH 28.9 (27.7-33.6) pg MCHC 34.1 (32.2-35.4) g/dL RDW 14.5 (11.5-15.5) % Plt Count 675 H (125-369) X10(3)uL MPV 8.0 (7.4-10.4) fL Add Manual Diff Yes Neutrophils % (Manual) 64 (46-82) % Lymphocytes % (Manual) 16 (13-37) % Monocytes % (Manual) 19 H (4-12) % Eosinophils % (Manual) 1 (0-5) % Plt Morphology Comment See note Anisocytosis Few PT 14.6 H (8.7-11.1) INR 1.44 H (0.89-1.13) Sodium (135-145) mmol/L Potassium (3.5-5.3) mmol/L Chloride (100-110) mmol/L Carbon Dioxide (21-32) mmol/L BUN (7-18) mg/dL Creatinine (0.70-1.30) mg/dL Est Cr Clr Drug Dosing mL/min Estimated GFR (MDRD) (>60) BUN/Creatinine Ratio (9-20) Glucose (80-116) mg/dL Calcium (8.6-10.2) mg/dL Total Bilirubin (0.1-1.3) mg/dL AST (5-25) IU/L ALT (12-36) U/L Alkaline Phosphatase (56-112) IU/L NT-Pro-B Natriuret Pep (<=450) pg/mL Total Protein (6.0-8.0) g/dL Albumin (3.2-4.6) g/dL Globulin g/dL Albumin/Globulin Ratio Med Orders - Current: Current Medications Ceftriaxone Sodium (Rocephin) 1,000 mg IV Q24H [facility] Last Admin: 12/30/17 18:08 Dose: 1,000 mg Clotrimazole (Clotrimazole 1%) 0 gm TOP BID [facility] Last Admin: 12/30/17 20:59 Dose: Not Given Docusate Sodium (Colace) 100 mg PO BID PRN PRN Reason: Constipation Duloxetine HCl (Cymbalta) 30 mg PO DAILY [facility] Last Admin: 12/30/17 10:08 Dose: 30 mg Enoxaparin Sodium (Lovenox) 110 mg SUBCUT BID [facility] Last Admin: 12/30/17 21:00 Dose: 110 mg Fesoterodine Fumarate (Toviaz) 8 mg PO DAILY [facility] Last Admin: 12/30/17 10:08 Dose: 8 mg Furosemide (Lasix) 40 mg IVPUSH BIDDIURETIC [facility] Last Admin: 12/31/17 08:19 Dose: 40 mg Lorazepam (Ativan) 0.5 mg PO Q6H PRN PRN Reason: Anxiety Last Admin: 12/30/17 21:01 Dose: 0.5 mg Magnesium Hydroxide (Milk Of Magnesia) 30 ml PO TID PRN PRN Reason: Constipation Last Admin: 12/30/17 21:02 Dose: 30 ml Metformin HCl (Glucophage) 850 mg PO WITHBREAKFAST [facility] Ondansetron HCl (Zofran) 4 mg IV Q4H PRN PRN Reason: Nausea/Vomiting Ondansetron HCl (Zofran Odt) 8 mg PO TID PRN PRN Reason: Nausea/Vomiting Oxycodone HCl (Oxycodone) 10 mg PO Q4H PRN PRN Reason: Breakthrough Pain Last Admin: 12/31/17 06:16 Dose: 10 mg Pantoprazole Sodium (Protonix) 40 mg PO DAILY@0600 [facility] Last Admin: 12/31/17 06:16 Dose: 40 mg Polyethylene Glycol (Miralax) 17 gm PO DAILY PRN PRN Reason: Constipation Sodium Chloride (Saline Flush) 10 ml FLUSH ASDIRECTED PRN PRN Reason: Keep Vein Open Last Admin: 12/31/17 08:19 Dose: 10 ml Trazodone HCl (Trazodone) 50 mg PO BEDTIME [facility] Last Admin: 12/30/17 21:01 Dose: 50 mg Discontinued Medications Albuterol/Ipratropium (Duoneb 3.0-0.5 Mg/3 Ml) Confirm Administered Dose 3 ml .ROUTE .STK-MED ONE Stop: 12/29/17 09:41 Last Admin: 12/29/17 09:50 Dose: 3 ml Albuterol/Ipratropium (Duoneb 3.0-0.5 Mg/3 Ml) 3 ml NEB ONETIME ONE Stop: 12/29/17 10:24 Last Admin: 12/29/17 14:34 Dose: Not Given Levofloxacin/Dextrose 750 mg/ (Premix) 150 mls @ 100 mls/hr IV ONETIME ONE Stop: 12/29/17 11:52 Last Admin: 12/29/17 11:08 Dose: 100 mls/hr Ceftriaxone Sodium 1,000 mg/ (Sodium Chloride) 50 mls @ 100 mls/hr IV Q24H [facility] Last Admin: 12/29/17 18:50 Dose: 100 mls/hr Iopamidol (Isovue-370 (76%)) 150 ml IV ONETIME ONE Stop: 12/29/17 13:09 Last Admin: 12/29/17 13:33 Dose: 127 ml Iopamidol (Isovue-370 (76%)) 100 ml IV . DIRECTED ONE Stop: 12/30/17 10:55 Last Admin: 12/30/17 11:13 Dose: 100 ml Morphine Sulfate (Ms Contin) 30 mg PO BID [facility] Last Admin: 12/30/17 08:11 Dose: 30 mg Naproxen (Naprosyn) 500 mg PO Q12H [facility] Last Admin: 12/30/17 10:08 Dose: 500 mg Oxycodone/Acetaminophen (Percocet 325-5 Mg) 2 tab PO Q4H PRN PRN Reason: Pain Last Admin: 12/30/17 08:11 Dose: 2 tab Warfarin Sodium (Coumadin) 10 mg PO ONETIME ONE Stop: 12/30/17 13:16 Last Admin: 12/30/17 13:27 Dose: 10 mg - Exam Quality Assessment: No: Supplemental Oxygen General: Alert HEENT: Pupils Equal Neck: Supple Lungs: Clear to Auscultation Cardiovascular: Regular Rate Extremities: Pedal Edema, Redness Psy/Mental Status: Depressed - Problem List & Annotations (1) Cellulitis SNOMED Code(s): 206594192 Code(s): L03.90 - CELLULITIS, UNSPECIFIED Status: Acute Current Visit: Yes Qualifiers: Site of cellulitis: extremity Laterality: unspecified laterality (2) Complaint of debility and malaise SNOMED Code(s): 867667459 Code(s): R53.81 - OTHER MALAISE Status: Acute Current Visit: No (3) KIERA (generalized anxiety disorder) SNOMED Code(s): 39110913 Code(s): F41.1 - GENERALIZED ANXIETY DISORDER Status: Acute Current Visit : No (4) Obesity SNOMED Code(s): 713389613 Code(s): E66.9 - OBESITY, UNSPECIFIED Status: Acute Current Visit: No Qualifiers: Obesity type: due to excess calories Body mass index: BMI 34.0-34.9 (5) Pain management SNOMED Code(s): 278238792 Code(s): R52 - PAIN, UNSPECIFIED Status: Acute Priority: High Current Visit: No (6) Bone metastases Status: Chronic Current Visit: No (7) Palliative care status SNOMED Code(s): 783491139 Code(s): Z51.5 - ENCOUNTER FOR PALLIATIVE CARE Status: Chronic Current Visit: No (8) Peripheral edema SNOMED Code(s): 922074107 Code(s): R60.9 - EDEMA, UNSPECIFIED Status: Chronic Current Visit: No (9) Bladder cancer SNOMED Code(s): 966606371 Code(s): C67.9 - MALIGNANT NEOPLASM OF BLADDER, UNSPECIFIED Status: Acute Current Visit: Yes Qualifiers: Bladder location: unspecified site Qualified Code(s): C67.9 - Malignant neoplasm of bladder, unspecified (10) SOB (shortness of breath) SNOMED Code(s): 916279582 Code(s): R06.02 - SHORTNESS OF BREATH Status: Acute Current Visit: Yes (11) Insomnia SNOMED Code(s): 302906770 Code(s): G47.00 - INSOMNIA, UNSPECIFIED Status: Acute Current Visit: Yes Qualifiers: Insomnia type: primary Qualified Code(s): F51.01 - Primary insomnia (12) MDD (major depressive disorder) SNOMED Code(s): 795236241 Code(s): F32.9 - MAJOR DEPRESSIVE DISORDER, SINGLE EPISODE, UNSPECIFIED Status: Acute Current Visit: Yes Qualifiers: Major depression recurrence: single episode Active/Remission status: currently active Psychotic features: without psychotic features (13) Pulmonary emboli SNOMED Code(s): 17355152 Code(s): I26.99 - OTHER PULMONARY EMBOLISM WITHOUT ACUTE COR PULMONALE Status: Acute Current Visit: Yes Qualifiers: Pulmonary embolism type: saddle Chronicity: acute Acute cor pulmonale presence: without acute cor pulmonale Qualified Code(s): I26.92 - Saddle embolus of pulmonary artery without acute cor pulmonale - Problem List Review Problem List Initiated/Reviewed/Updated: Yes - My Orders Last 24 Hours: My Active Orders 12/30/17 08:22 Magnesium Hydroxide [Milk of Magnesia] 30 ml PO TID PRN Polyethylene Glycol 3350 [MiraLAX] 17 gm PO DAILY PRN oxyCODONE 10 mg PO Q4H PRN 12/30/17 08:24 Chest w Cont [CT] Routine 12/30/17 09:00 Clotrimazole [Clotrimazole 1%] 0 gm TOP BID DULoxetine [Cymbalta] 30 mg PO DAILY Fesoterodine Fumarate [Toviaz] 8 mg PO DAILY Pantoprazole [ProTONIX] 40 mg PO DAILY@0600 metFORMIN [Glucophage] 850 mg PO WITHBREAKFAST 12/30/17 09:02 Ondansetron [Zofran ODT] 8 mg PO TID PRN 12/30/17 12:30 Enoxaparin [Lovenox] 110 mg SUBCUT BID 12/30/17 18:00 cefTRIAXone [Rocephin] 1,000 mg IV Q24H 12/30/17 21:00 traZODone 50 mg PO BEDTIME 12/30/17 Dinner Regular Diet [DIET] 01/01/18 05:11 PRO B-TYPE NATRIUR PEPT,BNPPRO [CHEM] DAILY - Plan Plan:: I will continue Lovenox, which he got a dose of yesterday. Also continue Coumadin orally, today 5 mg. Repeat INR daily. I will increase trazodone to 100 mg at night to help with sleep and chronic pain. I'll continue Lasix for diuresis. I will probably ask physical therapy for strengthening,and help with edema of the legs which is likely due to lymphedema.
[2017-12-31] MEDS: DULoxetine 30 MG Cap PO SCH (09:17)
[2017-12-31] MEDS: Enoxaparin 120 MG/0.8 ML Syringe SUBCUT SCH ×2 (09:17→21:24)
[2017-12-31] MEDS: Clotrimazole 1% Crm 15 GM Tube TOP SCH ×2 (09:17→20:01)
[2017-12-31] MEDS: Fesoterodine Fumarate 4 MG Tab PO SCH (09:17)
[2017-12-31] MEDS ORDERED: Warfarin 5 MG Tab PO ONE (16:00)
[2017-12-31] MEDS: cefTRIAXone 1,000 MG VIAL IV SCH (18:21)
[2017-12-31] MEDS: LORazepam 0.5 MG Tab PO PRN (21:23)
[2017-12-31] MEDS: traZODone 100 MG Tab PO SCH (21:42)
[2018-01-01] MEDS: oxyCODONE 5 MG Tab PO PRN ×2 (00:42→08:54)
[2018-01-01] MEDS: Magnesium Hydroxide 400 MG/5 ML Susp 30 ML Cup PO PRN (00:43)
[2018-01-01] MEDS: Polyethylene Glycol 3350 Powder 17 GM Packet PO PRN (00:58)
[2018-01-01] MEDS: LORazepam 0.5 MG Tab PO PRN (03:50)
[2018-01-01] MEDS: Pantoprazole 40 MG Tab.CR PO SCH (06:21)
[2018-01-01] MEDS ORDERED: fentaNYL 12 MCG/HR Transdermal Patch TRDERM SCH (08:30)
[2018-01-01] MEDS: Sodium Chloride 0.9% 10 ML Syringe FLUSH PRN ×5 (08:32→22:13)
[2018-01-01] MEDS: Furosemide 40 MG/4 ML VIAL IVPUSH SCH ×2 (08:32→14:55)
--- NOTE | 2018-01-01 08:32 | PCM.PN ---
- General Info Date of Service: 01/01/18 Subjective Update: Patient still complains of pain on the left hip,severe, making it hard to sleep at night. He further has cough, and bilateral leg edema that has not improved despite diuresis. Is unable to sleep well because of anxiety as well. He's got 2 doses of lorazepam overnight. He denies chest pain or shortness of breath. - Review of Systems Cardiovascular: Reports: No Symptoms Genitourinary: Reports: No Symptoms Neurological: Reports: No Symptoms - Patient Data Vitals - Most Recent: Last Vital Signs Temp 97.8 F 01/01/18 04:00 Pulse 91 01/01/18 04:00 Resp 18 01/01/18 04:00 BP 160/92 H 01/01/18 04:00 Pulse Ox 94 L 01/01/18 04:00 Weight - Most Recent: 110.858 kg Lab Results Last 24 Hours: Laboratory Results - last 24 hr 01/01/18 01/01/18 01/01/18 Range/Units 06:50 06:50 06:50 WBC 12.4 H (4.5-12.0) X10-3/uL RBC 3.42 L (4.30-5.75) x10(6)uL Hgb 9.7 L (11.5-15.5) g/dL Hct 29.2 L (30.0-51.3) % MCV 85.2 (80-96) fL MCH 28.2 (27.7-33.6) pg MCHC 33.1 (32.2-35.4) g/dL RDW 14.2 (11.5-15.5) % Plt Count 735 H (125-369) X10(3)uL PT 26.5 H (8.7-11.1) INR 2.57 H (0.89-1.13) Sodium (135-145) mmol/L Potassium (3.5-5.3) mmol/L Chloride (100-110) mmol/L Carbon Dioxide (21-32) mmol/L BUN (7-18) mg/dL Creatinine (0.70-1.30) mg/dL Est Cr Clr Drug Dosing mL/min Estimated GFR (MDRD) (>60) BUN/Creatinine Ratio (9-20) Glucose (80-116) mg/dL Calcium (8.6-10.2) mg/dL NT-Pro-B Natriuret Pep 307 (<=450) pg/mL 01/01/18 Range/Units 06:50 WBC (4.5-12.0) X10-3/uL RBC (4.30-5.75) x10(6)uL Hgb (11.5-15.5) g/dL Hct (30.0-51.3) % MCV (80-96) fL MCH (27.7-33.6) pg MCHC (32.2-35.4) g/dL RDW (11.5-15.5) % Plt Count (125-369) X10(3)uL PT (8.7-11.1) INR (0.89-1.13) Sodium 138 (135-145) mmol/L Potassium 3.9 (3.5-5.3) mmol/L Chloride 100 (100-110) mmol/L Carbon Dioxide 31 (21-32) mmol/L BUN 22 H (7-18) mg/dL Creatinine 1.0 (0.70-1.30) mg/dL Est Cr Clr Drug Dosing 65.89 mL/min Estimated GFR (MDRD) > 60 (>60) BUN/Creatinine Ratio 22.0 H (9-20) Glucose 132 H (80-116) mg/dL Calcium 8.4 L (8.6-10.2) mg/dL NT-Pro-B Natriuret Pep (<=450) pg/mL Med Orders - Current: Current Medications Clotrimazole (Clotrimazole 1%) 0 gm TOP BID [facility] Last Admin: 12/31/17 20:01 Dose: Not Given Docusate Sodium (Colace) 100 mg PO BID PRN PRN Reason: Constipation Duloxetine HCl (Cymbalta) 60 mg PO DAILY [facility] Fentanyl (Duragesic) 12 mcg TRDERM Q72H [facility] Fesoterodine Fumarate (Toviaz) 8 mg PO DAILY [facility] Last Admin: 12/31/17 09:17 Dose: 8 mg Furosemide (Lasix) 40 mg IVPUSH BIDDIURETIC [facility] Last Admin: 12/31/17 13:44 Dose: 40 mg Ampicillin Sodium/Sulbactam (Sodium 1.5 gm/ Sodium Chloride) 50 mls @ 100 mls/ hr IV Q6HR [facility] Lorazepam (Ativan) 0.5 mg PO Q6H PRN PRN Reason: Anxiety Last Admin: 01/01/18 03:50 Dose: 0.5 mg Magnesium Hydroxide (Milk Of Magnesia) 30 ml PO TID PRN PRN Reason: Constipation Last Admin: 01/01/18 00:43 Dose: 30 ml Metformin HCl (Glucophage) 850 mg PO WITHBREAKFAST [facility] Ondansetron HCl (Zofran) 4 mg IV Q4H PRN PRN Reason: Nausea/Vomiting Ondansetron HCl (Zofran Odt) 8 mg PO TID PRN PRN Reason: Nausea/Vomiting Oxycodone HCl (Oxycodone) 10 mg PO Q4H PRN PRN Reason: Breakthrough Pain Last Admin: 01/01/18 00:42 Dose: 10 mg Pantoprazole Sodium (Protonix) 40 mg PO DAILY@0600 [facility] Last Admin: 01/01/18 06:21 Dose: 40 mg Polyethylene Glycol (Miralax) 17 gm PO DAILY PRN PRN Reason: Constipation Last Admin: 01/01/18 00:58 Dose: 17 gm Sodium Chloride (Saline Flush) 10 ml FLUSH ASDIRECTED PRN PRN Reason: Keep Vein Open Last Admin: 12/31/17 18:27 Dose: 10 ml Trazodone HCl (Trazodone) 100 mg PO BEDTIME [facility] Last Admin: 12/31/17 21:42 Dose: 100 mg Warfarin Sodium (Coumadin Sliding Scale) 0 each PO DAILY [facility] Discontinued Medications Albuterol/Ipratropium (Duoneb 3.0-0.5 Mg/3 Ml) Confirm Administered Dose 3 ml .ROUTE .STK-MED ONE Stop: 12/29/17 09:41 Last Admin: 12/29/17 09:50 Dose: 3 ml Albuterol/Ipratropium (Duoneb 3.0-0.5 Mg/3 Ml) 3 ml NEB ONETIME ONE Stop: 12/29/17 10:24 Last Admin: 12/29/17 14:34 Dose: Not Given Ceftriaxone Sodium (Rocephin) 1,000 mg IV Q24H [facility] Last Admin: 12/31/17 18:21 Dose: 1,000 mg Duloxetine HCl (Cymbalta) 30 mg PO DAILY [facility] Last Admin: 12/31/17 09:17 Dose: 30 mg Enoxaparin Sodium (Lovenox) 110 mg SUBCUT BID [facility] Last Admin: 12/31/17 21:24 Dose: 110 mg Levofloxacin/Dextrose 750 mg/ (Premix) 150 mls @ 100 mls/hr IV ONETIME ONE Stop: 12/29/17 11:52 Last Admin: 12/29/17 11:08 Dose: 100 mls/hr Ceftriaxone Sodium 1,000 mg/ (Sodium Chloride) 50 mls @ 100 mls/hr IV Q24H [facility] Last Admin: 12/29/17 18:50 Dose: 100 mls/hr Iopamidol (Isovue-370 (76%)) 150 ml IV ONETIME ONE Stop: 12/29/17 13:09 Last Admin: 12/29/17 13:33 Dose: 127 ml Iopamidol (Isovue-370 (76%)) 100 ml IV . DIRECTED ONE Stop: 12/30/17 10:55 Last Admin: 12/30/17 11:13 Dose: 100 ml Morphine Sulfate (Ms Contin) 30 mg PO BID [facility] Last Admin: 12/30/17 08:11 Dose: 30 mg Naproxen (Naprosyn) 500 mg PO Q12H [facility] Last Admin: 12/30/17 10:08 Dose: 500 mg Oxycodone/Acetaminophen (Percocet 325-5 Mg) 2 tab PO Q4H PRN PRN Reason: Pain Last Admin: 12/30/17 08:11 Dose: 2 tab Trazodone HCl (Trazodone) 50 mg PO BEDTIME [facility] Last Admin: 12/30/17 21:01 Dose: 50 mg Warfarin Sodium (Coumadin) 10 mg PO ONETIME ONE Stop: 12/30/17 13:16 Last Admin: 12/30/17 13:27 Dose: 10 mg Warfarin Sodium (Coumadin) 5 mg PO ONETIME ONE Stop: 12/31/17 16:01 Last Admin: 12/31/17 15:19 Dose: 5 mg - Exam Quality Assessment: No: Supplemental Oxygen General: Alert, Oriented HEENT: Pupils Equal, Pupils Reactive, EOMI, Mucous Membr. Moist/[place] Lungs: Crackles, Rales Cardiovascular: Regular Rate, Regular Rhythm Extremities: Pedal Edema, Leg Pain, Redness Psy/Mental Status: Alert, Depressed - Problem List & Annotations (1) Cellulitis SNOMED Code(s): 095196121 Code(s): L03.90 - CELLULITIS, UNSPECIFIED Status: Acute Current Visit: Yes Qualifiers: Site of cellulitis: extremity Laterality: unspecified laterality (2) Complaint of debility and malaise SNOMED Code(s): 442578170 Code(s): R53.81 - OTHER MALAISE Status: Acute Current Visit: No (3) KIERA (generalized anxiety disorder) SNOMED Code(s): 55588802 Code(s): F41.1 - GENERALIZED ANXIETY DISORDER Status: Acute Current Visit : No (4) Obesity SNOMED Code(s): 592297560 Code(s): E66.9 - OBESITY, UNSPECIFIED Status: Acute Current Visit: No Qualifiers: Obesity type: due to excess calories Body mass index: BMI 34.0-34.9 (5) Pain management SNOMED Code(s): 456775932 Code(s): R52 - PAIN, UNSPECIFIED Status: Acute Priority: High Current Visit: No (6) Bone metastases Status: Chronic Current Visit: No (7) Palliative care status SNOMED Code(s): 545836451 Code(s): Z51.5 - ENCOUNTER FOR PALLIATIVE CARE Status: Chronic Current Visit: No (8) Peripheral edema SNOMED Code(s): 807519123 Code(s): R60.9 - EDEMA, UNSPECIFIED Status: Chronic Current Visit: No (9) Bladder cancer SNOMED Code(s): 131183825 Code(s): C67.9 - MALIGNANT NEOPLASM OF BLADDER, UNSPECIFIED Status: Acute Current Visit: Yes Qualifiers: Bladder location: unspecified site Qualified Code(s): C67.9 - Malignant neoplasm of bladder, unspecified (10) SOB (shortness of breath) SNOMED Code(s): 393961403 Code(s): R06.02 - SHORTNESS OF BREATH Status: Acute Current Visit: Yes (11) Insomnia SNOMED Code(s): 468806383 Code(s): G47.00 - INSOMNIA, UNSPECIFIED Status: Acute Current Visit: Yes Qualifiers: Insomnia type: primary Qualified Code(s): F51.01 - Primary insomnia (12) MDD (major depressive disorder) SNOMED Code(s): 045108799 Code(s): F32.9 - MAJOR DEPRESSIVE DISORDER, SINGLE EPISODE, UNSPECIFIED Status: Acute Current Visit: Yes Qualifiers: Major depression recurrence: single episode Active/Remission status: currently active Psychotic features: without psychotic features (13) Pulmonary emboli SNOMED Code(s): 78346606 Code(s): I26.99 - OTHER PULMONARY EMBOLISM WITHOUT ACUTE COR PULMONALE Status: Acute Current Visit: Yes Qualifiers: Pulmonary embolism type: saddle Chronicity: acute Acute cor pulmonale presence: without acute cor pulmonale Qualified Code(s): I26.92 - Saddle embolus of pulmonary artery without acute cor pulmonale (14) Aspiration pneumonia SNOMED Code(s): 478962905 Code(s): J69.0 - PNEUMONITIS DUE TO INHALATION OF FOOD AND VOMIT Status: Acute Current Visit: Yes Qualifiers: Lung location: unspecified part of lung - Problem List Review Problem List Initiated/Reviewed/Updated: Yes - My Orders Last 24 Hours: My Active Orders 12/31/17 08:39 OT Evaluation and Treatment [CONS] Routine 12/31/17 21:00 traZODone 100 mg PO BEDTIME 01/01/18 08:30 Ampicillin/Sulbactam Na [Unasyn] 1.5 gm Sodium Chloride 0.9% [Normal Saline] 50 ml IV Q6HR fentaNYL [Duragesic] 12 mcg TRDERM Q72H 01/01/18 09:00 DULoxetine [Cymbalta] 60 mg PO DAILY Warfarin Sliding Scale [Coumadin Sliding Scale] See Dose Instructions PO DAILY 01/02/18 05:11 BASIC METABOLIC PANEL,BMP [CHEM] AM CBC WITH AUTO DIFF [HEME] AM INR,PT,PROTHROMBIN TIME [COAG] DAILY 01/03/18 05:11 INR,PT,PROTHROMBIN TIME [COAG] DAILY 01/04/18 05:11 INR,PT,PROTHROMBIN TIME [COAG] DAILY 01/05/18 05:11 INR,PT,PROTHROMBIN TIME [COAG] DAILY - Plan Plan:: His INR is therapeutic today. The recommendation is to continue with Lovenox, I will hold off Coumadin. His chest CT did reveal PE, but in addition he has possible pneumonitis due to aspiration his lung examination confirms similar findings. I will discontinue Rocephin in favor of Unasyn 1.5 g every 6 hours. This should help his lower extremity cellulitis as wel... For his depression I will increase his Cymbalta dose to 60 g a day. His pain is uncontrolled, therefore I will start him on a Duragesic patch 12.5 g every 72 hours, with breakthrough oxycodone for pain control. I'll continued IV Lasix for 1 more day. For disposition of requested physical and occupational therapy evaluation, for wound management,and strengthening and RN LIAISON for consideration for half-way placement next several days. I will repeat a BNP CBC and basic profile in morning.
[2018-01-01] MEDS: Clotrimazole 1% Crm 15 GM Tube TOP SCH ×2 (08:40→21:01)
[2018-01-01] MEDS: Fesoterodine Fumarate 4 MG Tab PO SCH (08:59)
[2018-01-01] MEDS ORDERED: Warfarin Sliding Scale PO SCH (09:00)
[2018-01-01] MEDS: DULoxetine 60 MG Cap PO SCH (09:05)
[2018-01-01] MEDS: Ampicillin/Sulbactam Na 1.5 GM in Sodium Chloride 0.9% 50 ML IV SCH ×3 (09:07→20:53)
[2018-01-01] MEDS: Enoxaparin 120 MG/0.8 ML Syringe SUBCUT SCH ×2 (09:12→20:59)
[2018-01-01] MEDS: traZODone 100 MG Tab PO SCH (20:59)
[2018-01-02] MEDS: Ampicillin/Sulbactam Na 1.5 GM in Sodium Chloride 0.9% 50 ML IV SCH ×4 (03:45→21:42)
[2018-01-02] MEDS: Sodium Chloride 0.9% 10 ML Syringe FLUSH PRN ×4 (04:15→15:25)
[2018-01-02] MEDS: Pantoprazole 40 MG Tab.CR PO SCH (06:01)
[2018-01-02] MEDS: DULoxetine 60 MG Cap PO SCH (08:03)
[2018-01-02] MEDS: Enoxaparin 120 MG/0.8 ML Syringe SUBCUT SCH ×2 (08:03→21:43)
[2018-01-02] MEDS: Fesoterodine Fumarate 4 MG Tab PO SCH (08:06)
[2018-01-02] MEDS: oxyCODONE 5 MG Tab PO PRN ×3 (08:06→21:40)
[2018-01-02] MEDS: Polyethylene Glycol 3350 Powder 17 GM Packet PO PRN (08:07)
[2018-01-02] MEDS: Clotrimazole 1% Crm 15 GM Tube TOP SCH ×2 (08:08→21:42)
[2018-01-02] MEDS: Bacitracin/Neomycin/Polymyxin B Oint 28.4 GM Tube TOP SCH (08:40)
[2018-01-02] MEDS: Furosemide 40 MG/4 ML VIAL IVPUSH SCH ×2 (09:05→14:46)
--- NOTE | 2018-01-02 09:23 | PCM.PN ---
- General Info Date of Service: 01/02/18 Subjective Update: Vidal feels much better this morning, pain is better controlled on the Duragesic patch, and he slept much better. He still feels weak and gets short of breath on ambulation. He still has a cough that is productive of yellow sputum. No more fever or chills. - Review of Systems Gastrointestinal: Reports: No Symptoms Genitourinary: Reports: No Symptoms - Patient Data Vitals - Most Recent: Last Vital Signs Temp 96.5 F 01/02/18 07:27 Pulse 97 01/02/18 07:27 Resp 20 01/02/18 00:00 BP 133/86 01/02/18 07:27 Pulse Ox 95 01/02/18 07:27 Weight - Most Recent: 110.858 kg I&O - Last 24 Hours: Intake & Output 01/01/18 01/02/18 01/02/18 22:59 06:59 14:59 Intake Total 150 55 Balance 150 55 Lab Results Last 24 Hours: Laboratory Results - last 24 hr 01/02/18 01/02/18 01/02/18 Range/Units 06:10 06:10 06:10 WBC 13.0 H (4.5-12.0) X10-3/uL RBC 3.43 L (4.30-5.75) x10(6)uL Hgb 9.9 L (11.5-15.5) g/dL Hct 29.2 L (30.0-51.3) % MCV 85.0 (80-96) fL MCH 28.7 (27.7-33.6) pg MCHC 33.8 (32.2-35.4) g/dL RDW 14.3 (11.5-15.5) % Plt Count 659 H (125-369) X10(3)uL MPV 7.8 (7.4-10.4) fL Add Manual Diff Yes Neutrophils % (Manual) 67 (46-82) % Band Neutrophils % 3 (0-6) % Lymphocytes % (Manual) 13 (13-37) % Monocytes % (Manual) 17 H (4-12) % PT 25.5 H (8.7-11.1) INR 2.47 H (0.89-1.13) Sodium 137 (135-145) mmol/L Potassium 3.9 (3.5-5.3) mmol/L Chloride 99 L (100-110) mmol/L Carbon Dioxide 32 (21-32) mmol/L BUN 24 H (7-18) mg/dL Creatinine 1.1 (0.70-1.30) mg/dL Est Cr Clr Drug Dosing 59.90 mL/min Estimated GFR (MDRD) > 60 (>60) BUN/Creatinine Ratio 21.8 H (9-20) Glucose 129 H (80-116) mg/dL Calcium 8.0 L (8.6-10.2) mg/dL Med Orders - Current: Current Medications Clotrimazole (Clotrimazole 1%) 0 gm TOP BID [facility] Last Admin: 01/02/18 08:08 Dose: Not Given Docusate Sodium (Colace) 100 mg PO BID PRN PRN Reason: Constipation Duloxetine HCl (Cymbalta) 60 mg PO DAILY [facility] Last Admin: 01/02/18 08:03 Dose: 60 mg Enoxaparin Sodium (Lovenox) 110 mg SUBCUT Q12H [facility] Last Admin: 01/02/18 08:03 Dose: 110 mg Fentanyl (Duragesic) 12 mcg TRDERM Q72H [facility] Last Admin: 01/01/18 08:52 Dose: 12 mcg Fesoterodine Fumarate (Toviaz) 8 mg PO DAILY [facility] Last Admin: 01/02/18 08:06 Dose: 8 mg Furosemide (Lasix) 40 mg IVPUSH BIDDIURETIC [facility] Last Admin: 01/02/18 09:05 Dose: 40 mg Ampicillin Sodium/Sulbactam (Sodium 1.5 gm/ Sodium Chloride) 50 mls @ 100 mls/ hr IV Q6H [facility] Last Admin: 01/02/18 09:01 Dose: 100 mls/hr Lorazepam (Ativan) 0.5 mg PO Q6H PRN PRN Reason: Anxiety Last Admin: 01/01/18 03:50 Dose: 0.5 mg Magnesium Hydroxide (Milk Of Magnesia) 30 ml PO TID PRN PRN Reason: Constipation Last Admin: 01/01/18 00:43 Dose: 30 ml Metformin HCl (Glucophage) 850 mg PO WITHBREAKFAST [facility] Last Admin: 01/02/18 08:03 Dose: 850 mg Neomycin/Polymyxin/Bacitracin (Triple Antibiotic Oint) 0 gm TOP DAILY [facility] Last Admin: 01/02/18 08:40 Dose: 1 applic Ondansetron HCl (Zofran) 4 mg IV Q4H PRN PRN Reason: Nausea/Vomiting Last Admin: 01/01/18 22:13 Dose: 4 mg Ondansetron HCl (Zofran Odt) 8 mg PO TID PRN PRN Reason: Nausea/Vomiting Oxycodone HCl (Oxycodone) 10 mg PO Q4H PRN PRN Reason: Breakthrough Pain Last Admin: 01/02/18 08:06 Dose: 10 mg Pantoprazole Sodium (Protonix) 40 mg PO DAILY@0600 [facility] Last Admin: 01/02/18 06:01 Dose: 40 mg Polyethylene Glycol (Miralax) 17 gm PO DAILY PRN PRN Reason: Constipation Last Admin: 01/02/18 08:07 Dose: 17 gm Sodium Chloride (Saline Flush) 10 ml FLUSH ASDIRECTED PRN PRN Reason: Keep Vein Open Last Admin: 01/02/18 09:00 Dose: 10 ml Trazodone HCl (Trazodone) 100 mg PO BEDTIME [facility] Last Admin: 01/01/18 20:59 Dose: 100 mg Discontinued Medications Albuterol/Ipratropium (Duoneb 3.0-0.5 Mg/3 Ml) Confirm Administered Dose 3 ml .ROUTE .STK-MED ONE Stop: 12/29/17 09:41 Last Admin: 12/29/17 09:50 Dose: 3 ml Albuterol/Ipratropium (Duoneb 3.0-0.5 Mg/3 Ml) 3 ml NEB ONETIME ONE Stop: 12/29/17 10:24 Last Admin: 12/29/17 14:34 Dose: Not Given Ceftriaxone Sodium (Rocephin) 1,000 mg IV Q24H [facility] Last Admin: 12/31/17 18:21 Dose: 1,000 mg Duloxetine HCl (Cymbalta) 30 mg PO DAILY [facility] Last Admin: 12/31/17 09:17 Dose: 30 mg Enoxaparin Sodium (Lovenox) 110 mg SUBCUT BID [facility] Last Admin: 12/31/17 21:24 Dose: 110 mg Levofloxacin/Dextrose 750 mg/ (Premix) 150 mls @ 100 mls/hr IV ONETIME ONE Stop: 12/29/17 11:52 Last Admin: 12/29/17 11:08 Dose: 100 mls/hr Ceftriaxone Sodium 1,000 mg/ (Sodium Chloride) 50 mls @ 100 mls/hr IV Q24H [facility] Last Admin: 12/29/17 18:50 Dose: 100 mls/hr Iopamidol (Isovue-370 (76%)) 150 ml IV ONETIME ONE Stop: 12/29/17 13:09 Last Admin: 12/29/17 13:33 Dose: 127 ml Iopamidol (Isovue-370 (76%)) 100 ml IV . DIRECTED ONE Stop: 12/30/17 10:55 Last Admin: 12/30/17 11:13 Dose: 100 ml Morphine Sulfate (Ms Contin) 30 mg PO BID [facility] Last Admin: 12/30/17 08:11 Dose: 30 mg Naproxen (Naprosyn) 500 mg PO Q12H [facility] Last Admin: 12/30/17 10:08 Dose: 500 mg Oxycodone/Acetaminophen (Percocet 325-5 Mg) 2 tab PO Q4H PRN PRN Reason: Pain Last Admin: 12/30/17 08:11 Dose: 2 tab Trazodone HCl (Trazodone) 50 mg PO BEDTIME [facility] Last Admin: 12/30/17 21:01 Dose: 50 mg Warfarin Sodium (Coumadin) 10 mg PO ONETIME ONE Stop: 12/30/17 13:16 Last Admin: 12/30/17 13:27 Dose: 10 mg Warfarin Sodium (Coumadin) 5 mg PO ONETIME ONE Stop: 12/31/17 16:01 Last Admin: 12/31/17 15:19 Dose: 5 mg - Exam Quality Assessment: No: Supplemental Oxygen General: Alert, Oriented Neck: Supple Lungs: Crackles, Rales Cardiovascular: Regular Rate Back Exam: Normal Inspection Extremities: Pedal Edema - Problem List & Annotations (1) Cellulitis SNOMED Code(s): 008947389 Code(s): L03.90 - CELLULITIS, UNSPECIFIED Status: Acute Current Visit: Yes Qualifiers: Site of cellulitis: extremity Laterality: unspecified laterality (2) Complaint of debility and malaise SNOMED Code(s): 358946490 Code(s): R53.81 - OTHER MALAISE Status: Acute Current Visit: No (3) KIERA (generalized anxiety disorder) SNOMED Code(s): 88497924 Code(s): F41.1 - GENERALIZED ANXIETY DISORDER Status: Acute Current Visit : No (4) Obesity SNOMED Code(s): 811741208 Code(s): E66.9 - OBESITY, UNSPECIFIED Status: Acute Current Visit: No Qualifiers: Obesity type: due to excess calories Body mass index: BMI 34.0-34.9 (5) Pain management SNOMED Code(s): 405538021 Code(s): R52 - PAIN, UNSPECIFIED Status: Acute Priority: High Current Visit: No (6) Bone metastases Status: Chronic Current Visit: No (7) Palliative care status SNOMED Code(s): 104039848 Code(s): Z51.5 - ENCOUNTER FOR PALLIATIVE CARE Status: Chronic Current Visit: No (8) Peripheral edema SNOMED Code(s): 817298943 Code(s): R60.9 - EDEMA, UNSPECIFIED Status: Chronic Current Visit: No (9) Bladder cancer SNOMED Code(s): 296010942 Code(s): C67.9 - MALIGNANT NEOPLASM OF BLADDER, UNSPECIFIED Status: Acute Current Visit: Yes Qualifiers: Bladder location: unspecified site Qualified Code(s): C67.9 - Malignant neoplasm of bladder, unspecified (10) SOB (shortness of breath) SNOMED Code(s): 741340893 Code(s): R06.02 - SHORTNESS OF BREATH Status: Acute Current Visit: Yes (11) Insomnia SNOMED Code(s): 081241460 Code(s): G47.00 - INSOMNIA, UNSPECIFIED Status: Acute Current Visit: Yes Qualifiers: Insomnia type: primary Qualified Code(s): F51.01 - Primary insomnia (12) MDD (major depressive disorder) SNOMED Code(s): 323165071 Code(s): F32.9 - MAJOR DEPRESSIVE DISORDER, SINGLE EPISODE, UNSPECIFIED Status: Acute Current Visit: Yes Qualifiers: Major depression recurrence: single episode Active/Remission status: currently active Psychotic features: without psychotic features (13) Pulmonary emboli SNOMED Code(s): 94940143 Code(s): I26.99 - OTHER PULMONARY EMBOLISM WITHOUT ACUTE COR PULMONALE Status: Acute Current Visit: Yes Qualifiers: Pulmonary embolism type: saddle Chronicity: acute Acute cor pulmonale presence: without acute cor pulmonale Qualified Code(s): I26.92 - Saddle embolus of pulmonary artery without acute cor pulmonale (14) Aspiration pneumonia SNOMED Code(s): 283285354 Code(s): J69.0 - PNEUMONITIS DUE TO INHALATION OF FOOD AND VOMIT Status: Acute Current Visit: Yes Qualifiers: Lung location: unspecified part of lung - Problem List Review Problem List Initiated/Reviewed/Updated: Yes - My Orders Last 24 Hours: My Active Orders 01/01/18 08:30 fentaNYL [Duragesic] 12 mcg TRDERM Q72H 01/01/18 09:00 Ampicillin/Sulbactam Na [Unasyn] 1.5 gm Sodium Chloride 0.9% [Normal Saline] 50 ml IV Q6H DULoxetine [Cymbalta] 60 mg PO DAILY Enoxaparin [Lovenox] 110 mg SUBCUT Q12H 01/02/18 09:00 Bacitracin/Neomycin/Polymyxin [Triple Antibiotic Oint] 0 gm TOP DAILY 01/03/18 05:11 INR,PT,PROTHROMBIN TIME [COAG] DAILY 01/04/18 05:11 INR,PT,PROTHROMBIN TIME [COAG] DAILY 01/05/18 05:11 INR,PT,PROTHROMBIN TIME [COAG] DAILY - Plan Plan:: Cellulitis as improved. My plan is to continue Lovenox, Unasyn, and IV Lasix for the shortness of breath and aspiration pneumonia respectively. He has no need for physical therapy he desires to long term which will be accomplished the next 1-2 days. Repeat routine labs in the morning,with an eye on platelets.
[2018-01-02] MEDS: traZODone 100 MG Tab PO SCH (21:43)
[2018-01-03] MEDS: Ampicillin/Sulbactam Na 1.5 GM in Sodium Chloride 0.9% 50 ML IV SCH ×2 (03:15→09:43)
[2018-01-03] MEDS: Sodium Chloride 0.9% 10 ML Syringe FLUSH PRN ×2 (03:17→08:39)
[2018-01-03] MEDS: Pantoprazole 40 MG Tab.CR PO SCH (05:10)
[2018-01-03 07:46] VITALS: BP 144/98
[2018-01-03] MEDS: Clotrimazole 1% Crm 15 GM Tube TOP SCH (08:12)
[2018-01-03] MEDS: Enoxaparin 120 MG/0.8 ML Syringe SUBCUT SCH (08:13)
[2018-01-03] MEDS: DULoxetine 60 MG Cap PO SCH (08:13)
[2018-01-03] MEDS: oxyCODONE 5 MG Tab PO PRN (08:14)
[2018-01-03] MEDS: Fesoterodine Fumarate 4 MG Tab PO SCH (08:14)
[2018-01-03] MEDS: Polyethylene Glycol 3350 Powder 17 GM Packet PO PRN (08:15)
[2018-01-03] MEDS: Furosemide 40 MG/4 ML VIAL IVPUSH SCH (08:33)
--- NOTE | 2018-01-03 09:02 | PCM.PN ---
- General Info Date of Service: 01/03/18 Subjective Update: Vidal feels much better this morning, pain is better controlled on the Duragesic patch, and he slept much better. He still feels weak and gets short of breath on ambulation. He still has a cough that is productive of yellow sputum. No more fever or chills. - Review of Systems Cardiovascular: Reports: No Symptoms Gastrointestinal: Reports: No Symptoms Musculoskeletal: Reports: Leg Pain Skin: Reports: No Symptoms - Patient Data Vitals - Most Recent: Last Vital Signs Temp 97.5 F 01/03/18 07:43 Pulse 91 01/03/18 07:43 Resp 18 01/03/18 07:43 BP 144/98 H 01/03/18 07:43 Pulse Ox 90 L 01/03/18 07:43 Weight - Most Recent: 110.858 kg I&O - Last 24 Hours: Intake & Output 01/02/18 01/03/18 01/03/18 22:59 06:59 14:59 Intake Total 50 Balance 50 Lab Results Last 24 Hours: Laboratory Results - last 24 hr 01/03/18 01/03/18 01/03/18 Range/Units 06:55 06:55 06:55 WBC 15.1 H (4.5-12.0) X10-3/uL RBC 3.42 L (4.30-5.75) x10(6)uL Hgb 9.8 L (11.5-15.5) g/dL Hct 28.5 L (30.0-51.3) % MCV 83.3 (80-96) fL MCH 28.7 (27.7-33.6) pg MCHC 34.4 (32.2-35.4) g/dL RDW 13.9 (11.5-15.5) % Plt Count 576 H (125-369) X10(3)uL MPV 7.9 (7.4-10.4) fL Add Manual Diff Yes Neutrophils % (Manual) 61 (46-82) % Band Neutrophils % 5 (0-6) % Lymphocytes % (Manual) 15 (13-37) % Monocytes % (Manual) 16 H (4-12) % Metamyelocytes % 3 H (0-0) % PT 19.8 H (8.7-11.1) INR 1.93 H (0.89-1.13) Sodium 136 (135-145) mmol/L Potassium 3.5 (3.5-5.3) mmol/L Chloride 97 L (100-110) mmol/L Carbon Dioxide 32 (21-32) mmol/L BUN 25 H (7-18) mg/dL Creatinine 1.0 (0.70-1.30) mg/dL Est Cr Clr Drug Dosing 65.89 mL/min Estimated GFR (MDRD) > 60 (>60) BUN/Creatinine Ratio 25.0 H (9-20) Glucose 129 H (80-116) mg/dL Calcium 7.9 L (8.6-10.2) mg/dL Med Orders - Current: Current Medications Clotrimazole (Clotrimazole 1%) 0 gm TOP BID [facility] Last Admin: 01/03/18 08:12 Dose: Not Given Docusate Sodium (Colace) 100 mg PO BID PRN PRN Reason: Constipation Duloxetine HCl (Cymbalta) 60 mg PO DAILY [facility] Last Admin: 01/03/18 08:13 Dose: 60 mg Enoxaparin Sodium (Lovenox) 110 mg SUBCUT Q12H [facility] Last Admin: 01/03/18 08:13 Dose: 110 mg Fentanyl (Duragesic) 12 mcg TRDERM Q72H [facility] Last Admin: 01/01/18 08:52 Dose: 12 mcg Fesoterodine Fumarate (Toviaz) 8 mg PO DAILY [facility] Last Admin: 01/03/18 08:14 Dose: 8 mg Furosemide (Lasix) 40 mg IVPUSH BIDDIURETIC [facility] Last Admin: 01/03/18 08:33 Dose: 40 mg Ampicillin Sodium/Sulbactam (Sodium 1.5 gm/ Sodium Chloride) 50 mls @ 100 mls/ hr IV Q6H [facility] Last Admin: 01/03/18 03:15 Dose: 100 mls/hr Lorazepam (Ativan) 0.5 mg PO Q6H PRN PRN Reason: Anxiety Last Admin: 01/01/18 03:50 Dose: 0.5 mg Magnesium Hydroxide (Milk Of Magnesia) 30 ml PO TID PRN PRN Reason: Constipation Last Admin: 01/01/18 00:43 Dose: 30 ml Metformin HCl (Glucophage) 850 mg PO WITHBREAKFAST [facility] Last Admin: 01/03/18 08:10 Dose: 850 mg Neomycin/Polymyxin/Bacitracin (Triple Antibiotic Oint) 0 gm TOP DAILY [facility] Last Admin: 01/02/18 08:40 Dose: 1 applic Ondansetron HCl (Zofran) 4 mg IV Q4H PRN PRN Reason: Nausea/Vomiting Last Admin: 01/01/18 22:13 Dose: 4 mg Ondansetron HCl (Zofran Odt) 8 mg PO TID PRN PRN Reason: Nausea/Vomiting Oxycodone HCl (Oxycodone) 10 mg PO Q4H PRN PRN Reason: Breakthrough Pain Last Admin: 01/03/18 08:14 Dose: 10 mg Pantoprazole Sodium (Protonix) 40 mg PO DAILY@0600 [facility] Last Admin: 01/03/18 05:10 Dose: 40 mg Polyethylene Glycol (Miralax) 17 gm PO DAILY PRN PRN Reason: Constipation Last Admin: 01/03/18 08:15 Dose: 17 gm Sodium Chloride (Saline Flush) 10 ml FLUSH ASDIRECTED PRN PRN Reason: Keep Vein Open Last Admin: 01/03/18 08:39 Dose: 10 ml Trazodone HCl (Trazodone) 100 mg PO BEDTIME [facility] Last Admin: 01/02/18 21:43 Dose: 100 mg Discontinued Medications Albuterol/Ipratropium (Duoneb 3.0-0.5 Mg/3 Ml) Confirm Administered Dose 3 ml .ROUTE .STK-MED ONE Stop: 12/29/17 09:41 Last Admin: 12/29/17 09:50 Dose: 3 ml Albuterol/Ipratropium (Duoneb 3.0-0.5 Mg/3 Ml) 3 ml NEB ONETIME ONE Stop: 12/29/17 10:24 Last Admin: 12/29/17 14:34 Dose: Not Given Ceftriaxone Sodium (Rocephin) 1,000 mg IV Q24H [facility] Last Admin: 12/31/17 18:21 Dose: 1,000 mg Duloxetine HCl (Cymbalta) 30 mg PO DAILY [facility] Last Admin: 12/31/17 09:17 Dose: 30 mg Enoxaparin Sodium (Lovenox) 110 mg SUBCUT BID [facility] Last Admin: 12/31/17 21:24 Dose: 110 mg Levofloxacin/Dextrose 750 mg/ (Premix) 150 mls @ 100 mls/hr IV ONETIME ONE Stop: 12/29/17 11:52 Last Admin: 12/29/17 11:08 Dose: 100 mls/hr Ceftriaxone Sodium 1,000 mg/ (Sodium Chloride) 50 mls @ 100 mls/hr IV Q24H [facility] Last Admin: 12/29/17 18:50 Dose: 100 mls/hr Iopamidol (Isovue-370 (76%)) 150 ml IV ONETIME ONE Stop: 12/29/17 13:09 Last Admin: 12/29/17 13:33 Dose: 127 ml Iopamidol (Isovue-370 (76%)) 100 ml IV . DIRECTED ONE Stop: 12/30/17 10:55 Last Admin: 12/30/17 11:13 Dose: 100 ml Morphine Sulfate (Ms Contin) 30 mg PO BID [facility] Last Admin: 12/30/17 08:11 Dose: 30 mg Naproxen (Naprosyn) 500 mg PO Q12H [facility] Last Admin: 12/30/17 10:08 Dose: 500 mg Oxycodone/Acetaminophen (Percocet 325-5 Mg) 2 tab PO Q4H PRN PRN Reason: Pain Last Admin: 12/30/17 08:11 Dose: 2 tab Trazodone HCl (Trazodone) 50 mg PO BEDTIME [facility] Last Admin: 12/30/17 21:01 Dose: 50 mg Warfarin Sodium (Coumadin) 10 mg PO ONETIME ONE Stop: 12/30/17 13:16 Last Admin: 12/30/17 13:27 Dose: 10 mg Warfarin Sodium (Coumadin) 5 mg PO ONETIME ONE Stop: 12/31/17 16:01 Last Admin: 12/31/17 15:19 Dose: 5 mg - Exam Quality Assessment: No: Supplemental Oxygen General: Alert HEENT: Pupils Equal Neck: Supple Lungs: Crackles Cardiovascular: Regular Rate, No Murmurs - Problem List & Annotations (1) Cellulitis SNOMED Code(s): 426482240 Code(s): L03.90 - CELLULITIS, UNSPECIFIED Status: Acute Current Visit: Yes Qualifiers: Site of cellulitis: extremity Laterality: unspecified laterality (2) Complaint of debility and malaise SNOMED Code(s): 333959618 Code(s): R53.81 - OTHER MALAISE Status: Acute Current Visit: No (3) KIERA (generalized anxiety disorder) SNOMED Code(s): 48957712 Code(s): F41.1 - GENERALIZED ANXIETY DISORDER Status: Acute Current Visit : No (4) Obesity SNOMED Code(s): 673818639 Code(s): E66.9 - OBESITY, UNSPECIFIED Status: Acute Current Visit: No Qualifiers: Obesity type: due to excess calories Body mass index: BMI 34.0-34.9 (5) Pain management SNOMED Code(s): 123956087 Code(s): R52 - PAIN, UNSPECIFIED Status: Acute Priority: High Current Visit: No (6) Bone metastases Status: Chronic Current Visit: No (7) Palliative care status SNOMED Code(s): 622389531 Code(s): Z51.5 - ENCOUNTER FOR PALLIATIVE CARE Status: Chronic Current Visit: No (8) Peripheral edema SNOMED Code(s): 994063940 Code(s): R60.9 - EDEMA, UNSPECIFIED Status: Chronic Current Visit: No (9) Bladder cancer SNOMED Code(s): 293285214 Code(s): C67.9 - MALIGNANT NEOPLASM OF BLADDER, UNSPECIFIED Status: Acute Current Visit: Yes Qualifiers: Bladder location: unspecified site Qualified Code(s): C67.9 - Malignant neoplasm of bladder, unspecified (10) SOB (shortness of breath) SNOMED Code(s): 673927064 Code(s): R06.02 - SHORTNESS OF BREATH Status: Acute Current Visit: Yes (11) Insomnia SNOMED Code(s): 323371348 Code(s): G47.00 - INSOMNIA, UNSPECIFIED Status: Acute Current Visit: Yes Qualifiers: Insomnia type: primary Qualified Code(s): F51.01 - Primary insomnia (12) MDD (major depressive disorder) SNOMED Code(s): 123302394 Code(s): F32.9 - MAJOR DEPRESSIVE DISORDER, SINGLE EPISODE, UNSPECIFIED Status: Acute Current Visit: Yes Qualifiers: Major depression recurrence: single episode Active/Remission status: currently active Psychotic features: without psychotic features (13) Pulmonary emboli SNOMED Code(s): 99576372 Code(s): I26.99 - OTHER PULMONARY EMBOLISM WITHOUT ACUTE COR PULMONALE Status: Acute Current Visit: Yes Qualifiers: Pulmonary embolism type: saddle Chronicity: acute Acute cor pulmonale presence: without acute cor pulmonale Qualified Code(s): I26.92 - Saddle embolus of pulmonary artery without acute cor pulmonale (14) Aspiration pneumonia SNOMED Code(s): 939661445 Code(s): J69.0 - PNEUMONITIS DUE TO INHALATION OF FOOD AND VOMIT Status: Acute Current Visit: Yes Qualifiers: Lung location: unspecified part of lung - Problem List Review Problem List Initiated/Reviewed/Updated: Yes - My Orders Last 24 Hours: My Active Orders 01/02/18 09:00 Bacitracin/Neomycin/Polymyxin [Triple Antibiotic Oint] 0 gm TOP DAILY 01/04/18 05:11 INR,PT,PROTHROMBIN TIME [COAG] DAILY 01/05/18 05:11 INR,PT,PROTHROMBIN TIME [COAG] DAILY - Plan Plan:: Cellulitis as improved. My plan is to continue Lovenox x6mo, Unasyn, and IV Lasix for the shortness of breath and aspiration pneumonia. He has no need for physical therapy but he desires to go to snf which will be accomplished the next 1-2 days.
[2018-01-03] MEDS: Bacitracin/Neomycin/Polymyxin B Oint 28.4 GM Tube TOP SCH (09:43)
--- NOTE | 2018-01-05 10:13 | DISCH ---
DISCHARGE DATE: 01/03/2018 REASON FOR ADMISSION: 1. Pneumonia. 2. CHF. 3. Bladder cancer. 4. Type 2 diabetes. 5. Obesity. DISCHARGE DIAGNOSES: 1. Pulmonary emboli. 2. Aspiration pneumonia. 3. Congestive heart failure. 4. Bladder cancer. 5. Type 2 diabetes. 6. Obesity. 7. Generalized anxiety disorder. 8. Depression. 9. General debility. 10.Weakness. CONSULTATIONS: Physical and Occupational Therapy. BRIEF HISTORY: This is a 77-year-old male, who came to the ER with tightness of the chest, shortness of breath, and cough. Initial x-ray showed a pneumonia, but he continued to be short of breath. He also had edema. He has recently been diagnosed with bladder cancer with metastasis to the bone, especially the left hip, and his pain has been uncontrolled. He was unable to ambulate and stay at home alone. He continued to be short of breath, and the next day, a CT scan of the chest revealed pulmonary emboli. Lovenox was initiated right away. His pain was controlled on Duragesic patch initially by naproxen, but stopped this because of anticoagulation. He also got diuresis in the form of Lasix 40 mg twice a day IV. The patient had to make a decision about chemotherapy, which was palliative, and at the time of discharge, his intention was to first get better and then resume if possible. Because of generalized weakness and debility, he was deemed a good candidate for rehab and was discharged to be admitted to [facility] on January 03. DISCHARGE MEDICATIONS: He will go home on: 1. Docusate 100 mg b.i.d. 2. Cymbalta 60 mg a day, is a new medication. He will also go home on enoxaparin or Lovenox 110 mg daily twice a day to finish 6 months. I sent him home on: 1. Duragesic patch 12 mcg every 72 hours. 2. Lorazepam 0.5 mg p.r.n. every 6 hours. 3. Lasix 40 mg a day. 4. Metformin would be continued 850 mg with breakfast. 5. Omeprazole 20 mg a day. 6. Oxycodone up to 5 mg as needed. 7. He will use MiraLAX p.r.n. for constipation. In the hospital, I also started him on trazodone 100 mg at bedtime, which seemed to be helping. He was using Unasyn for the pneumonia, this was changed to Augmentin 1 tablet twice a day to complete 7 days. FOLLOWUP: The patient will follow up with PCP after discharge from swing bed. Please note I spent more than 35 minutes in discharging the patient. /[id number] HIEN/TERRY
== END 2018-01-03 12:10 | disposition swing bed (61) | DRG 177 ==
LOC: FB.ED 09:16 → FB.MS 11:14
PROVIDERS: ADMIT Family Medicine; ATTEND Family Medicine
DX: J69.0 Pneumonitis due to inhalation of food and vomit (principal); I26.99 Other pulmonary embolism without acute cor pulmonale; L03.116 Cellulitis of left lower limb; L03.115 Cellulitis of right lower limb; C79.51 Secondary malignant neoplasm of bone; E11.9 Type 2 diabetes mellitus without complications; C67.9 Malignant neoplasm of bladder, unspecified; Z92.3 Personal history of irradiation; R53.81 Other malaise; F41.1 Generalized anxiety disorder; Z87.891 Personal history of nicotine dependence; E66.9 Obesity, unspecified; R60.9 Edema, unspecified; G89.29 Other chronic pain; R06.02 Shortness of breath; M79.89 Other specified soft tissue disorders; Z79.84 Long term (current) use of oral hypoglycemic drugs; E78.00 Pure hypercholesterolemia, unspecified; Z85.828 Personal history of other malignant neoplasm of skin; Z98.1 Arthrodesis status; F32.9 Major depressive disorder, single episode, unspecified; F51.01 Primary insomnia; Z79.01 Long term (current) use of anticoagulants; T17.920A Food in respiratory tract, part unspecified causing asphyxiation, initial encounter
CPT/HCPCS: 36415; 71045; 71260; 73701-RT; 80048; 80053; 81001; 82550; 83605; 83880; 84484; 85025; 85027; 85610; 87040; 94640; 96365; 97110-GP; 97162-GP; 97165-GO; 97530-GO; 99285; A9270-GY; J0287; J0696; J1650; J1940; J1956; J2405; J7050; J7620; Q9967

== ENCOUNTER 2018-01-03 12:14 | Inpatient (IN) | payer MEDICARE, BC ==
[2018-01-03] MEDS ORDERED: Polyethylene Glycol 3350 Powder 17 GM Packet PO PRN (13:14)
[2018-01-03] MEDS ORDERED: Ondansetron 8 MG Tab.DIS PO PRN (13:40)
[2018-01-03] MEDS: oxyCODONE 5 MG Tab PO PRN ×2 (13:57→20:53)
--- NOTE | 2018-01-03 16:46 | PCM.HP ---
H&P History of Present Illness - General Date of Service: 01/03/18 Admit Problem/Dx: Admission Diagnosis/Problem Admission Diagnosis/Problem Pulmonary embolism Source of Information: Patient, Old Records - History of Present Illness Initial Comments - Free Text/Narative: Vidal is being admitted to swing bed after an acute hospital stay for aspiration pneumonia, PE, and left hip pain from metastatic bladder cancer.He is generally weak and debilitated has had difficulty sleeping, and will need physical strengthening and rehabilitation.Hence the reason for admission to L hip Pain Score (Numeric/FACES): 3 - Related Data Allergies/Adverse Reactions: Allergies Allergy/AdvReac Type Severity Reaction Status Date / Time No Known Allergies Allergy Verified 01/03/18 12:28 Home Medications: Home Meds Calcium Citrate/Vitamin D3 [Calcium Citrate - Vit D Tablet] 2 tab PO BIDMEALS [History] Fesoterodine Fumarate [Toviaz] 8 mg PO DAILY 12/07/17 [History] Magnesium Hydroxide [Milk of Magnesia] 30 ml PO TID PRN 12/07/17 [History] Polyethylene Glycol 3350 [MiraLAX] 17 gm PO DAILY PRN 12/07/17 [History] Sennosides/Docusate Sodium [Senna S Tablet] 2 tab PO BID 12/07/17 [History] Clotrimazole [Clotrimazole 1%] 1 applic TOP BID 12/13/17 [History] Ondansetron HCl [Zofran] 8 mg PO TID PRN #30 tablet 12/22/17 [Rx] metFORMIN [Glucophage] 850 mg PO DAILY #30 tablet 12/22/17 [Rx] Omeprazole 20 mg PO DAILY 12/25/17 [History] oxyCODONE 10 mg PO Q4H PRN #60 tablet 12/27/17 [Rx] Amoxicillin/Potassium Clav [Augmentin 875-125 Tablet] 1 each PO BID #14 tablet 01/03/18 [Rx] DULoxetine [Cymbalta] 60 mg PO DAILY #30 cap 01/03/18 [Rx] Enoxaparin [Lovenox] 110 mg SUBCUT Q12H #60 syringe 01/03/18 [Rx] Furosemide [Lasix] 40 mg PO DAILY #30 tablet 01/03/18 [Rx] LORazepam [Ativan] 0.5 mg PO Q6H PRN #40 tablet 01/03/18 [Rx] fentaNYL [Duragesic] 12 mcg TRDERM Q72H #15 patch 01/03/18 [Rx] traZODone 100 mg PO BEDTIME #30 tablet 01/03/18 [Rx] Past Medical History Cardiovascular History: Reports: High Cholesterol Respiratory History: Reports: PE, Pneumonia, Recurrent, Other (See Below) Other Respiratory History: recent pneumonia dx is the time he has had pneumonia Gastrointestinal History: Reports: Colon Polyp Genitourinary History: Reports: Other (See Below) Other Genitourinary History: Bladder cancer Musculoskeletal History: Reports: Other (See Below) Other Musculoskeletal History: 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 Psychiatric History: Reports: Anxiety, Depression Endocrine/Metabolic History: Reports: Diabetes, Type II Immunologic History: Reports: Immunosuppression Oncologic (Cancer) History: Reports: Bladder, Other (See Below) Other Oncologic History: skin Dermatologic History: Reports: Cellulitis Other Dermatologic History: right foot cellulitis - Infectious Disease History Infectious Disease History: Reports: Mononucleosis, Rheumatic Fever - Past Surgical History Cardiovascular Surgical History: Reports: None Respiratory Surgical History: Reports: None GI Surgical History: Reports: Colonoscopy Male Surgical History: Reports: Other (See Below) Other Male Surgeries/Procedures: laser prostatem surgery-10 years ago Endocrine Surgical History: Reports: None Musculoskeletal Surgical History: Reports: Other (See Below) Other Musculoskeletal Surgeries/Procedures:: lumbar fusion 1965 Oncologic Surgical History: Reports: Other (See Below) Other Oncologic Surgeries/Procedures: bladder biopsy. bone mets Dermatological Surgical History: Reports: Other (See Below) Social & Family History - Family History Family Medical History: Noncontributory - Tobacco Use Smoking Status *Q: Never Smoker Used Tobacco, but Quit: Yes Month Tobacco Last Used: 0 Second Hand Smoke Exposure: No - Caffeine Use Caffeine Use: Reports: None Other Caffeine Use: 1-2 per day Caffeine Use Comment: 2 cups a day - Alcohol Use Days Per Week of Alcohol Use: 0 - Recreational Drug Use Recreational Drug Use: No H&P Review of Systems - Review of Systems: Review Of Systems: ROS reveals no pertinent complaints other than HPI. Exam - Exam Exam: See Below - Vital Signs Vital Signs: Last Vital Signs Temp 97.7 F 01/03/18 16:00 Pulse 98 01/03/18 16:00 Resp 18 01/03/18 16:00 BP 124/74 01/03/18 16:00 Pulse Ox 94 L 01/03/18 16:00 Weight: 110.847 kg - Exam Quality Assessment: No: Supplemental Oxygen General: Alert HEENT: PERRLA Neck: Supple Lungs: Clear to Auscultation Cardiovascular: Regular Rate GI/Abdominal Exam: Normal Bowel Sounds Neurological: Cranial Nerves Intact Psychiatric: Alert, Depressed *Q Meaningful Use (ADM) - VTE *Q VTE Criteria *Q: - Stroke *Q Stroke Criteria *Q: - AMI *Q AMI Criteria *Q: - Problem List (1) General weakness SNOMED Code(s): 90517447 ICD Code: R53.1 - WEAKNESS Status: Acute Current Visit: Yes (2) Bladder cancer SNOMED Code(s): 540554869 ICD Code: C67.9 - MALIGNANT NEOPLASM OF BLADDER, UNSPECIFIED Status: Acute Current Visit: No Qualifiers: (3) Complaint of debility and malaise SNOMED Code(s): 980540341 ICD Code: R53.81 - OTHER MALAISE Status: Acute Current Visit: No (4) MDD (major depressive disorder) SNOMED Code(s): 507582978 ICD Code: F32.9 - MAJOR DEPRESSIVE DISORDER, SINGLE EPISODE, UNSPECIFIED Status: Acute Current Visit: No Qualifiers: Major depression recurrence: single episode Active/Remission status: currently active Psychotic features: without psychotic features (5) Pain management SNOMED Code(s): 146166088 ICD Code: R52 - PAIN, UNSPECIFIED Status: Acute Priority: High Current Visit: No (6) Pneumonia SNOMED Code(s): 951482665 ICD Code: J18.9 - PNEUMONIA, UNSPECIFIED ORGANISM Status: Acute Current Visit: No Qualifiers: Pneumonia type: aspiration pneumonia (7) Pulmonary emboli SNOMED Code(s): 34731780 ICD Code: I26.99 - OTHER PULMONARY EMBOLISM WITHOUT ACUTE COR PULMONALE Status: Acute Current Visit: No Qualifiers: Pulmonary embolism type: saddle Problem List Initiated/Reviewed/Updated: Yes Orders Last 24hrs: Active Orders 24 hr Category Date Time Status Patient Status [ADT] Routine ADT 01/03/18 13:11 Active Bedrest Bathroom Privileges [RC] ASDIRECTED Care 01/03/18 13:11 Active Height and Weight [RC] 06 Care 01/03/18 13:11 Active Oxygen Therapy [RC] PRN Care 01/03/18 13:11 Active Up With Assistance [RC] ASDIRECTED Care 01/03/18 13:11 Active Vital Signs [RC] 08 Care 01/03/18 13:11 Active OT Evaluation and Treatment [CONS] Routine Cons 01/03/18 13:11 Active PT Evaluation and Treatment [CONS] Routine Cons 01/03/18 13:11 Active Consistent Carbohydrate Diet [DIET] Diet 01/03/18 Breakfast Active Amoxicillin/Clavulanate K [Augmentin 875 MG/125 MG] Med 01/03/18 21:00 Active 1 tab PO BID Calcium Carbonate/Vitamin D3 [Calcium Carbonate/Vitamin Med 01/03/18 18:00 Active D 1250 MG-200 Unit] 2 tab PO BIDMEALS Clotrimazole [Clotrimazole 1%] Med 01/03/18 21:00 Active 0 gm TOP BID DULoxetine [Cymbalta] Med 01/04/18 09:00 Active 60 mg PO DAILY Docusate Sodium/Sennosides [Senna Plus] Med 01/03/18 21:00 Active 2 tab PO BID Enoxaparin [Lovenox] Med 01/03/18 21:00 Active 110 mg SUBCUT Q12H Fesoterodine Fumarate [Toviaz] Med 01/04/18 09:00 Active 8 mg PO DAILY Furosemide [Lasix] Med 01/04/18 09:00 Active 40 mg PO DAILY LORazepam [Ativan] Med 01/03/18 13:14 Active 0.5 mg PO Q6H PRN Magnesium Hydroxide [Milk of Magnesia] Med 01/03/18 13:14 Active 30 ml PO TID PRN Ondansetron [Zofran ODT] Med 01/03/18 13:40 Active 8 mg PO TID PRN Pantoprazole [ProTONIX] Med 01/04/18 06:00 Active 40 mg PO DAILY@0600 Polyethylene Glycol 3350 [MiraLAX] Med 01/03/18 13:14 Active 17 gm PO DAILY PRN fentaNYL [Duragesic] Med 01/04/18 09:00 Active 12 mcg TRDERM Q72H metFORMIN [Glucophage] Med 01/04/18 08:00 Active 850 mg PO WITHBREAKFAST oxyCODONE Med 01/03/18 13:14 Active 10 mg PO Q4H PRN traZODone Med 01/03/18 21:00 Active 100 mg PO BEDTIME Resuscitation Status Routine Resus Stat 01/03/18 13:11 Ordered Medication Orders Amoxicillin/Clavulanate Potassium (Augmentin 875 Mg/125 Mg) 1 tab PO BID [facility]OMMY Stop: 01/10/18 09:01 Calcium Carbonate (Calcium Carbonate/Vitamin D 1250 Mg-200 Unit) 2 tab PO BIDMEALS TOMMY Clotrimazole (Clotrimazole 1%) 0 gm TOP BID TOM[facility] Duloxetine HCl (Cymbalta) 60 mg PO DAILY [facility] Enoxaparin Sodium (Lovenox) 110 mg SUBCUT Q12H [facility] Fentanyl (Duragesic) 12 mcg TRDERM Q72H [facility] Fesoterodine Fumarate (Toviaz) 8 mg PO DAILY [facility] Furosemide (Lasix) 40 mg PO DAILY [facility] Lorazepam (Ativan) 0.5 mg PO Q6H PRN PRN Reason: Anxiety Magnesium Hydroxide (Milk Of Magnesia) 30 ml PO TID PRN PRN Reason: Constipation Metformin HCl (Glucophage) 850 mg PO WITHBREAKFAST [facility] Ondansetron HCl (Zofran Odt) 8 mg PO TID PRN PRN Reason: Nausea/Vomiting Oxycodone HCl (Oxycodone) 10 mg PO Q4H PRN PRN Reason: Breakthrough Pain Last Admin: 01/03/18 13:57 Dose: 10 mg Pantoprazole Sodium (Protonix) 40 mg PO DAILY@0600 [facility] Polyethylene Glycol (Miralax) 17 gm PO DAILY PRN PRN Reason: Constipation Senna/Docusate Sodium (Senna Plus) 2 tab PO BID [facility] Trazodone HCl (Trazodone) 100 mg PO BEDTIME [facility] Assessment/Plan Comment:: Admit to swing bed with regular routine orders for sitting bed. I will continue Augmentin for approximately 7 days. Lovenox is long-term at least 6 months. I would continue Lasix at 40 mg once a day and trazodone 100 mg at night. He uses a Duragesic patch for pain and OxyContin for breakthrough. I've ordered physical patient therapy,along with OT, and medical donation professional determine disposition 1 see strong enough. Vidal has expressed interest to go to [facility].
[2018-01-03] MEDS: Calcium Carbonate/Vitamin D3 1250 MG-200 Unit Tab PO SCH (17:50)
[2018-01-03] MEDS: Amoxicillin/Clavulanate K 875-125 MG Tab PO SCH (20:52)
[2018-01-03] MEDS: LORazepam 0.5 MG Tab PO PRN (20:53)
[2018-01-03] MEDS: CLOTRIMAZOLE 1% TOP SCH (20:54)
[2018-01-03] MEDS: traZODone 100 MG Tab PO SCH (20:54)
[2018-01-03] MEDS: Enoxaparin 120 MG/0.8 ML Syringe SUBCUT SCH (20:55)
[2018-01-04] MEDS: Pantoprazole 40 MG Tab.CR PO SCH (05:19)
[2018-01-04] MEDS: oxyCODONE 5 MG Tab PO PRN ×3 (05:28→21:14)
[2018-01-04] MEDS: Calcium Carbonate/Vitamin D3 1250 MG-200 Unit Tab PO SCH ×2 (07:39→18:03)
[2018-01-04] MEDS: Fesoterodine Fumarate 4 MG Tab PO SCH (08:30)
[2018-01-04] MEDS: Furosemide 40 MG Tab PO SCH (08:30)
[2018-01-04] MEDS: DULoxetine 60 MG Cap PO SCH (08:30)
[2018-01-04] MEDS: Amoxicillin/Clavulanate K 875-125 MG Tab PO SCH ×2 (08:30→21:08)
[2018-01-04] MEDS: Enoxaparin 120 MG/0.8 ML Syringe SUBCUT SCH ×2 (08:30→21:08)
[2018-01-04] MEDS: CLOTRIMAZOLE 1% TOP SCH ×2 (08:31→21:09)
[2018-01-04] MEDS ORDERED: fentaNYL 12 MCG/HR Transdermal Patch TRDERM SCH (09:00)
[2018-01-04] MEDS: traZODone 100 MG Tab PO SCH (21:08)
[2018-01-05] MEDS: Pantoprazole 40 MG Tab.CR PO SCH (06:35)
[2018-01-05] MEDS: oxyCODONE 5 MG Tab PO PRN ×3 (06:35→19:41)
[2018-01-05] MEDS: Calcium Carbonate/Vitamin D3 1250 MG-200 Unit Tab PO SCH ×2 (08:15→17:07)
[2018-01-05] MEDS: DULoxetine 60 MG Cap PO SCH (08:16)
[2018-01-05] MEDS: Furosemide 40 MG Tab PO SCH (08:16)
[2018-01-05] MEDS: CLOTRIMAZOLE 1% TOP SCH ×2 (08:16→19:59)
[2018-01-05] MEDS: Enoxaparin 120 MG/0.8 ML Syringe SUBCUT SCH ×2 (08:16→20:00)
[2018-01-05] MEDS: Amoxicillin/Clavulanate K 875-125 MG Tab PO SCH ×2 (08:16→19:59)
[2018-01-05] MEDS: Fesoterodine Fumarate 4 MG Tab PO SCH (08:17)
[2018-01-05] MEDS: fentaNYL 25 MCG/HR Transdermal Patch TRDERM SCH (09:11)
[2018-01-05] MEDS: traZODone 100 MG Tab PO SCH (20:02)
[2018-01-05] MEDS ORDERED: Dexamethasone 4 MG Tab PO SCH (21:00)
[2018-01-06] MEDS: oxyCODONE 5 MG Tab PO PRN ×3 (03:48→22:39)
[2018-01-06] MEDS: Pantoprazole 40 MG Tab.CR PO SCH (06:36)
[2018-01-06] MEDS: Amoxicillin/Clavulanate K 875-125 MG Tab PO SCH ×2 (08:21→20:43)
[2018-01-06] MEDS: CLOTRIMAZOLE 1% TOP SCH ×2 (08:21→20:50)
[2018-01-06] MEDS: Calcium Carbonate/Vitamin D3 1250 MG-200 Unit Tab PO SCH ×2 (08:21→17:41)
[2018-01-06] MEDS: Furosemide 40 MG Tab PO SCH (08:22)
[2018-01-06] MEDS: DULoxetine 60 MG Cap PO SCH (08:22)
[2018-01-06] MEDS: Fesoterodine Fumarate 4 MG Tab PO SCH (08:22)
[2018-01-06] MEDS: Enoxaparin 120 MG/0.8 ML Syringe SUBCUT SCH ×2 (08:22→20:51)
[2018-01-06] MEDS: Dexamethasone 4 MG Tab PO SCH ×2 (08:37→17:41)
[2018-01-06] MEDS: traZODone 100 MG Tab PO SCH (20:51)
[2018-01-07] MEDS: Pantoprazole 40 MG Tab.CR PO SCH (06:49)
[2018-01-07] MEDS: oxyCODONE 5 MG Tab PO PRN ×4 (06:53→23:31)
[2018-01-07] MEDS: Calcium Carbonate/Vitamin D3 1250 MG-200 Unit Tab PO SCH ×2 (08:50→17:58)
[2018-01-07] MEDS: Amoxicillin/Clavulanate K 875-125 MG Tab PO SCH ×2 (08:51→20:17)
[2018-01-07] MEDS: CLOTRIMAZOLE 1% TOP SCH ×2 (08:51→20:16)
[2018-01-07] MEDS: DULoxetine 60 MG Cap PO SCH (08:51)
[2018-01-07] MEDS: Dexamethasone 4 MG Tab PO SCH ×2 (08:51→17:59)
[2018-01-07] MEDS: Enoxaparin 120 MG/0.8 ML Syringe SUBCUT SCH ×2 (08:52→20:17)
[2018-01-07] MEDS: Furosemide 40 MG Tab PO SCH (08:52)
[2018-01-07] MEDS: Fesoterodine Fumarate 4 MG Tab PO SCH (08:53)
--- NOTE | 2018-01-07 16:29 | PCM.PN ---
- General Info Date of Service: 01/07/18 Admission Dx/Problem (Free Text): Patient's getting Duragesic and oxycodone for pain. Dexamethasone was started. Patient states his pain has improved. Nurses concerned about an infection he had on his right foot. They state has periodic drainage and what looked at today. No fevers. - Patient Data Vitals - Most Recent: Last Vital Signs Temp 97.8 F 01/07/18 07:30 Pulse 88 01/07/18 07:30 Resp 18 01/07/18 07:30 BP 140/89 01/07/18 07:30 Pulse Ox 94 L 01/07/18 12:00 Weight - Most Recent: 241 lb 7 oz Med Orders - Current: Current Medications Amoxicillin/Clavulanate Potassium (Augmentin 875 Mg/125 Mg) 1 tab PO BID [facility] Stop: 01/10/18 09:01 Last Admin: 01/07/18 08:51 Dose: 1 tab Calcium Carbonate (Calcium Carbonate/Vitamin D 1250 Mg-200 Unit) 2 tab PO BIDMEALS [facility] Last Admin: 01/07/18 08:50 Dose: 2 tab Clotrimazole (Clotrimazole 1%) 0 gm TOP BID [facility] Last Admin: 01/07/18 08:51 Dose: Not Given Dexamethasone (Dexamethasone) 4 mg PO BIDMEALS [facility] Last Admin: 01/07/18 08:51 Dose: 4 mg Duloxetine HCl (Cymbalta) 60 mg PO DAILY [facility] Last Admin: 01/07/18 08:51 Dose: 60 mg Enoxaparin Sodium (Lovenox) 110 mg SUBCUT Q12H [facility] Last Admin: 01/07/18 08:52 Dose: 110 mg Fentanyl (Duragesic) 25 mcg TRDERM Q72H [facility] Last Admin: 01/05/18 09:11 Dose: 25 mcg Fesoterodine Fumarate (Toviaz) 8 mg PO DAILY [facility] Last Admin: 01/07/18 08:53 Dose: 8 mg Furosemide (Lasix) 40 mg PO DAILY [facility] Last Admin: 01/07/18 08:52 Dose: 40 mg Lorazepam (Ativan) 0.5 mg PO Q6H PRN PRN Reason: Anxiety Last Admin: 01/03/18 20:53 Dose: 0.5 mg Magnesium Hydroxide (Milk Of Magnesia) 30 ml PO TID PRN PRN Reason: Constipation Metformin HCl (Glucophage) 850 mg PO WITHBREAKFAST [facility] Last Admin: 01/07/18 08:51 Dose: 850 mg Ondansetron HCl (Zofran Odt) 8 mg PO TID PRN PRN Reason: Nausea/Vomiting Last Admin: 01/05/18 12:50 Dose: 8 mg Oxycodone HCl (Oxycodone) 10 mg PO Q4H PRN PRN Reason: Breakthrough Pain Last Admin: 01/07/18 13:01 Dose: 10 mg Pantoprazole Sodium (Protonix) 40 mg PO DAILY@0600 [facility] Last Admin: 01/07/18 06:49 Dose: 40 mg Polyethylene Glycol (Miralax) 17 gm PO DAILY PRN PRN Reason: Constipation Senna/Docusate Sodium (Senna Plus) 2 tab PO BID [facility] Last Admin: 01/07/18 08:53 Dose: 2 tab Trazodone HCl (Trazodone) 100 mg PO BEDTIME [facility] Last Admin: 01/06/18 20:51 Dose: 100 mg Discontinued Medications Dexamethasone (Dexamethasone) 4 mg PO BID [facility] Last Admin: 01/05/18 20:00 Dose: 4 mg Fentanyl (Duragesic) 12 mcg TRDERM Q72H [facility] Last Admin: 01/04/18 08:30 Dose: 12 mcg - Exam General: Alert, Cooperative Skin: Other (Dorsum of the right foot has an area that looks like there was an opening or an ulcer. It's healed nicely. Minimal drainage looks like it's less purulent.) - Problem List & Annotations (1) Peripheral edema SNOMED Code(s): 790304162 Code(s): R60.9 - EDEMA, UNSPECIFIED Status: Chronic Current Visit: No (2) Bladder cancer SNOMED Code(s): 414203533 Code(s): C67.9 - MALIGNANT NEOPLASM OF BLADDER, UNSPECIFIED Status: Acute Current Visit: No Qualifiers: (3) Malignant neoplasm metastatic from bladder SNOMED Code(s): 210674139 Code(s): C67.9 - MALIGNANT NEOPLASM OF BLADDER, UNSPECIFIED Status: Chronic Current Visit: No (4) Pain management SNOMED Code(s): 040793989 Code(s): R52 - PAIN, UNSPECIFIED Status: Acute Priority: High Current Visit: No (5) Palliative care status SNOMED Code(s): 416932800 Code(s): Z51.5 - ENCOUNTER FOR PALLIATIVE CARE Status: Chronic Current Visit: No (6) Bone metastases Status: Chronic Current Visit: No (7) Broken skin SNOMED Code(s): 286062847 Code(s): R23.8 - OTHER SKIN CHANGES Status: Acute Current Visit: No - Problem List Review Problem List Initiated/Reviewed/Updated: Yes - Plan Plan:: Continue triple antibiotic on the right foot daily. Continue to observe. Appears it's healing nicely. Continue pain medicine as previously prescribed. He has appointment next week oncology.
[2018-01-07] MEDS: traZODone 100 MG Tab PO SCH (20:17)
[2018-01-07] MEDS: LORazepam 0.5 MG Tab PO PRN (23:31)
[2018-01-08] MEDS: oxyCODONE 5 MG Tab PO PRN ×4 (04:37→20:12)
[2018-01-08] MEDS: Pantoprazole 40 MG Tab.CR PO SCH (06:00)
[2018-01-08] MEDS: Dexamethasone 4 MG Tab PO SCH ×2 (08:42→19:31)
[2018-01-08] MEDS: DULoxetine 60 MG Cap PO SCH (08:42)
[2018-01-08] MEDS: Amoxicillin/Clavulanate K 875-125 MG Tab PO SCH ×2 (08:42→20:12)
[2018-01-08] MEDS: Furosemide 40 MG Tab PO SCH (08:42)
[2018-01-08] MEDS: Calcium Carbonate/Vitamin D3 1250 MG-200 Unit Tab PO SCH ×2 (08:42→19:31)
[2018-01-08] MEDS: fentaNYL 25 MCG/HR Transdermal Patch TRDERM SCH (08:43)
[2018-01-08] MEDS: Fesoterodine Fumarate 4 MG Tab PO SCH (08:43)
[2018-01-08] MEDS: Enoxaparin 120 MG/0.8 ML Syringe SUBCUT SCH ×2 (08:45→20:12)
[2018-01-08] MEDS: CLOTRIMAZOLE 1% TOP SCH ×2 (08:45→20:13)
[2018-01-08] MEDS: LORazepam 0.5 MG Tab PO PRN (20:12)
[2018-01-08] MEDS: traZODone 100 MG Tab PO SCH (20:13)
[2018-01-09] MEDS: oxyCODONE 5 MG Tab PO PRN ×4 (04:00→21:33)
[2018-01-09] MEDS: Pantoprazole 40 MG Tab.CR PO SCH (05:27)
[2018-01-09] MEDS: Calcium Carbonate/Vitamin D3 1250 MG-200 Unit Tab PO SCH ×2 (08:17→18:45)
[2018-01-09] MEDS: Enoxaparin 120 MG/0.8 ML Syringe SUBCUT SCH ×2 (08:18→21:34)
[2018-01-09] MEDS: Amoxicillin/Clavulanate K 875-125 MG Tab PO SCH ×2 (08:18→21:33)
[2018-01-09] MEDS: Furosemide 40 MG Tab PO SCH (08:18)
[2018-01-09] MEDS: DULoxetine 60 MG Cap PO SCH (08:18)
[2018-01-09] MEDS: Dexamethasone 4 MG Tab PO SCH ×2 (08:18→18:44)
[2018-01-09] MEDS: Fesoterodine Fumarate 4 MG Tab PO SCH (08:19)
[2018-01-09] MEDS: CLOTRIMAZOLE 1% TOP SCH ×2 (08:26→21:34)
[2018-01-09] MEDS: Bacitracin/Neomycin/Polymyxin B Oint 0.9 GM U/D Packet TOP SCH (15:28)
[2018-01-09] MEDS: Magnesium Hydroxide 400 MG/5 ML Susp 30 ML Cup PO PRN (21:33)
[2018-01-09] MEDS: traZODone 100 MG Tab PO SCH (21:35)
[2018-01-10] MEDS: oxyCODONE 5 MG Tab PO PRN ×3 (02:34→17:00)
[2018-01-10] MEDS: Pantoprazole 40 MG Tab.CR PO SCH (05:54)
[2018-01-10] MEDS: CLOTRIMAZOLE 1% TOP SCH ×2 (08:04→19:59)
[2018-01-10] MEDS: Fesoterodine Fumarate 4 MG Tab PO SCH (08:09)
[2018-01-10] MEDS: Furosemide 40 MG Tab PO SCH (08:09)
[2018-01-10] MEDS: Amoxicillin/Clavulanate K 875-125 MG Tab PO SCH (08:09)
[2018-01-10] MEDS: Dexamethasone 4 MG Tab PO SCH ×2 (08:09→18:32)
[2018-01-10] MEDS: DULoxetine 60 MG Cap PO SCH (08:09)
[2018-01-10] MEDS: Calcium Carbonate/Vitamin D3 1250 MG-200 Unit Tab PO SCH ×2 (08:09→18:32)
[2018-01-10] MEDS: Enoxaparin 120 MG/0.8 ML Syringe SUBCUT SCH ×2 (08:10→20:00)
[2018-01-10] MEDS: Bacitracin/Neomycin/Polymyxin B Oint 0.9 GM U/D Packet TOP SCH (10:10)
[2018-01-10] MEDS: Bacitracin/Neomycin/Polymyxin B Oint 28.4 GM Tube TOP SCH (10:12)
[2018-01-10] MEDS: traZODone 100 MG Tab PO SCH (20:00)
[2018-01-11] MEDS: Pantoprazole 40 MG Tab.CR PO SCH (07:00)
[2018-01-11] MEDS: oxyCODONE 5 MG Tab PO PRN ×3 (07:26→21:20)
[2018-01-11 08:16] VITALS: BP 158/93
[2018-01-11] MEDS: Dexamethasone 4 MG Tab PO SCH ×2 (09:29→18:08)
[2018-01-11] MEDS: Calcium Carbonate/Vitamin D3 1250 MG-200 Unit Tab PO SCH ×2 (09:29→18:08)
[2018-01-11] MEDS: DULoxetine 60 MG Cap PO SCH (09:30)
[2018-01-11] MEDS: Enoxaparin 120 MG/0.8 ML Syringe SUBCUT SCH ×2 (09:44→21:21)
[2018-01-11] MEDS: Furosemide 40 MG Tab PO SCH (09:46)
[2018-01-11] MEDS: CLOTRIMAZOLE 1% TOP SCH ×2 (09:47→21:22)
[2018-01-11] MEDS: Fesoterodine Fumarate 4 MG Tab PO SCH (09:48)
[2018-01-11] MEDS: Bacitracin/Neomycin/Polymyxin B Oint 28.4 GM Tube TOP SCH (09:48)
[2018-01-11] MEDS: fentaNYL 25 MCG/HR Transdermal Patch TRDERM SCH (09:56)
[2018-01-11] MEDS: Magnesium Hydroxide 400 MG/5 ML Susp 30 ML Cup PO PRN (21:20)
[2018-01-11] MEDS: traZODone 100 MG Tab PO SCH (21:22)
[2018-01-12] MEDS: Pantoprazole 40 MG Tab.CR PO SCH (07:00)
[2018-01-12] MEDS: Calcium Carbonate/Vitamin D3 1250 MG-200 Unit Tab PO SCH (08:17)
[2018-01-12] MEDS: Dexamethasone 4 MG Tab PO SCH (08:18)
[2018-01-12] MEDS: Furosemide 40 MG Tab PO SCH (08:19)
[2018-01-12] MEDS: DULoxetine 60 MG Cap PO SCH (08:19)
[2018-01-12] MEDS: CLOTRIMAZOLE 1% TOP SCH (08:19)
[2018-01-12] MEDS: Enoxaparin 120 MG/0.8 ML Syringe SUBCUT SCH (08:19)
[2018-01-12] MEDS: Fesoterodine Fumarate 4 MG Tab PO SCH (08:20)
[2018-01-12] MEDS: oxyCODONE 5 MG Tab PO PRN (08:24)
--- NOTE | 2018-01-15 14:09 | DISCH ---
DISCHARGE DATE: 01/12/2018 REASON FOR ADMISSION: 1. Bladder cancer, metastatic. 2. Pulmonary embolism. 3. Type 2 diabetes. 4. Obesity. 5. Generalized debility and malaise. 6. Pneumonia, aspiration. 7. Pain hip, chronic. 8. Anxiety and depression. DISCHARGE DIAGNOSES: 1. Bladder cancer, metastatic. 2. Pulmonary embolism. 3. Type 2 diabetes. 4. Obesity. 5. Generalized debility and malaise. 6. Pneumonia, aspiration. 7. Pain hip, chronic. 8. Anxiety and depression. BRIEF HISTORY AND HOSPITAL COURSE: This is a 77-year-old male admitted for rehab. He has history of bladder cancer, PE, and type 2 diabetes, pain controlled by Duragesic patch. He did well and is now being discharged to non- skilled care on his private pay. He will continue with physical and occupational therapy. Eventually, the plan is to go back to the [facility]. DISCHARGE MEDICATIONS: He will continue with Lovenox 110 mg twice a day, fentanyl 25 mcg every 72 hours, Dexamethasone 4 mg b.i.d. with meals, fesoterodine fumarate 8 mg daily, Lasix 40 mg a day, lorazepam as needed, metformin 850 mg once a day, oxycodone 10 mg q.4 hours p.r.n., Protonix at 0600 every morning, MiraLAX as needed, trazodone 100 mg at bedtime. He will also go home on Cymbalta 60 mg a day. FOLLOWUP: He will continue to see PCP, Dr. Calderon, in 1 week after discharge. Please note that I spent more than 35 minutes in the discharge of the patient. /[id number] HIEN/TERRY
== END 2018-01-12 10:07 | disposition home or self-care (01) | DRG 947 ==
LOC: FB.MS 12:14
PROVIDERS: ADMIT Family Medicine; ATTEND Family Medicine
DX: R53.1 Weakness (principal); J69.0 Pneumonitis due to inhalation of food and vomit; I26.99 Other pulmonary embolism without acute cor pulmonale; C79.51 Secondary malignant neoplasm of bone; C67.9 Malignant neoplasm of bladder, unspecified; Z86.711 Personal history of pulmonary embolism; R52 Pain, unspecified; R60.9 Edema, unspecified; R23.8 Other skin changes; E11.9 Type 2 diabetes mellitus without complications; Z79.84 Long term (current) use of oral hypoglycemic drugs; Z79.01 Long term (current) use of anticoagulants; E66.9 Obesity, unspecified; Z68.34 Body mass index [BMI] 34.0-34.9, adult; M25.559 Pain in unspecified hip; Z85.828 Personal history of other malignant neoplasm of skin; F32.9 Major depressive disorder, single episode, unspecified; F41.9 Anxiety disorder, unspecified; Z87.01 Personal history of pneumonia (recurrent)
CPT/HCPCS: 36415; 82565; 82962; 85025; 97110-GO; 97110-GP; 97116-GP; 97530-GO; 97535-GO; A9270-GY; J1650; J8540

== ENCOUNTER 2018-01-12 10:18 | Inpatient (IN) | payer SELFPAY ==
[2018-01-12] MEDS ORDERED: ONDANSETRON 8 MG PO PRN (10:36)
[2018-01-12] MEDS ORDERED: Polyethylene Glycol 3350 Powder 17 GM Packet PO PRN (10:36)
[2018-01-12] MEDS ORDERED: Magnesium Hydroxide 400 MG/5 ML Susp 30 ML Cup PO PRN (10:36)
[2018-01-12] MEDS ORDERED: LORazepam 0.5 MG Tab PO PRN (10:36)
[2018-01-12] MEDS: CALCIUM PO SCH (17:02)
[2018-01-12] MEDS: VITAMIN D PO SCH (17:02)
[2018-01-12] MEDS: MINERALS PO SCH (17:02)
[2018-01-12] MEDS: Dexamethasone 4 MG Tab *PTOM PO SCH (17:13)
[2018-01-12] MEDS: CLOTRIMAZOLE 1% TOP SCH (21:55)
[2018-01-12] MEDS: ENOXAPARIN 120 MG/0.8 ML SUBCUT SCH (21:56)
[2018-01-12] MEDS: traZODone 100 MG Tab *PTOM PO SCH (22:03)
[2018-01-12] MEDS: MAGNESIUM HYDROXIDE 400 MG/5 ML PO PRN (22:05)
[2018-01-12] MEDS: oxyCODONE 5 MG Tab *PTOM PO PRN (22:09)
[2018-01-13] MEDS: oxyCODONE 5 MG Tab *PTOM PO PRN ×2 (08:04→20:48)
[2018-01-13] MEDS: METFORMIN 850 MG PO SCH (08:06)
[2018-01-13] MEDS: Dexamethasone 4 MG Tab *PTOM PO SCH ×2 (08:07→19:14)
[2018-01-13] MEDS: CLOTRIMAZOLE 1% TOP SCH ×3 (08:07→21:03)
[2018-01-13] MEDS: VITAMIN D PO SCH ×2 (08:08→19:14)
[2018-01-13] MEDS: MINERALS PO SCH ×2 (08:08→19:14)
[2018-01-13] MEDS: DULoxetine 60 MG Cap *PTOM PO SCH (08:08)
[2018-01-13] MEDS: CALCIUM PO SCH ×2 (08:08→19:14)
[2018-01-13] MEDS: FESOTERODINE FUMARATE 8 MG PO SCH (08:09)
[2018-01-13] MEDS: Furosemide 20 MG Tab *PTOM PO SCH (08:10)
[2018-01-13] MEDS: ENOXAPARIN 120 MG/0.8 ML SUBCUT SCH ×2 (08:13→20:43)
[2018-01-13] MEDS: Bacitracin/Neomycin/Polymyxin B Oint 28.4 GM Tube TOP SCH (08:14)
[2018-01-13] MEDS: Omeprazole 20 MG *PTOM PO SCH (08:14)
[2018-01-13] MEDS: traZODone 100 MG Tab *PTOM PO SCH (20:40)
[2018-01-13] MEDS: MAGNESIUM HYDROXIDE 400 MG/5 ML PO PRN (20:45)
[2018-01-14] MEDS ORDERED: Bisacodyl 10 MG Supp RECTAL PRN (07:34)
[2018-01-14] MEDS ORDERED: FENTANYL 25 MCG/HR TRDERM SCH (09:00)
[2018-01-14] MEDS: CALCIUM PO SCH ×2 (09:11→18:46)
[2018-01-14] MEDS: VITAMIN D PO SCH ×2 (09:11→18:46)
[2018-01-14] MEDS: METFORMIN 850 MG PO SCH (09:11)
[2018-01-14] MEDS: MINERALS PO SCH ×2 (09:11→18:46)
[2018-01-14] MEDS: DULoxetine 60 MG Cap *PTOM PO SCH (09:12)
[2018-01-14] MEDS: FESOTERODINE FUMARATE 8 MG PO SCH (09:12)
[2018-01-14] MEDS: Furosemide 20 MG Tab *PTOM PO SCH (09:13)
[2018-01-14] MEDS: Dexamethasone 4 MG Tab *PTOM PO SCH ×2 (09:14→18:45)
[2018-01-14] MEDS: CLOTRIMAZOLE 1% TOP SCH ×2 (09:15→21:06)
[2018-01-14] MEDS: Omeprazole 20 MG *PTOM PO SCH (09:16)
[2018-01-14] MEDS: Bacitracin/Neomycin/Polymyxin B Oint 28.4 GM Tube TOP SCH (09:17)
[2018-01-14] MEDS: ENOXAPARIN 120 MG/0.8 ML SUBCUT SCH ×2 (09:20→21:11)
[2018-01-14] MEDS: traZODone 100 MG Tab *PTOM PO SCH (21:08)
[2018-01-15] MEDS ORDERED: Furosemide 40 MG Tab *PTOM PO SCH (09:00)
[2018-01-15] MEDS: CALCIUM PO SCH (09:17)
[2018-01-15] MEDS: MINERALS PO SCH (09:17)
[2018-01-15] MEDS: VITAMIN D PO SCH (09:17)
[2018-01-15] MEDS: DULoxetine 60 MG Cap *PTOM PO SCH (09:18)
[2018-01-15] MEDS: Dexamethasone 4 MG Tab *PTOM PO SCH (09:18)
[2018-01-15] MEDS: METFORMIN 850 MG PO SCH (09:18)
[2018-01-15] MEDS: FESOTERODINE FUMARATE 8 MG PO SCH (09:19)
[2018-01-15] MEDS: ENOXAPARIN 120 MG/0.8 ML SUBCUT SCH (09:19)
[2018-01-15] MEDS: Bacitracin/Neomycin/Polymyxin B Oint 28.4 GM Tube TOP SCH (09:20)
[2018-01-15] MEDS: Omeprazole 20 MG *PTOM PO SCH (09:20)
[2018-01-15 09:21] VITALS: BP 145/88
[2018-01-15] MEDS ORDERED: Enoxaparin 40 MG/0.4 ML Syringe SUBCUT ONE (11:45)
[2018-01-15] MEDS: CLOTRIMAZOLE 1% TOP SCH (11:47)
[2018-01-15] MEDS ORDERED: ENOXAPARIN 120 MG/0.8 ML SUBCUT ONE (12:00)
--- NOTE | 2018-01-15 12:08 | DISCH ---
DISCHARGE DATE: 01/15/2018 REASON FOR ADMISSION: 1. Physical strengthening, weakness. 2. PE. 3. Bladder cancer. 4. Depression. DISCHARGE DIAGNOSES: 1. Physical strengthening, weakness. 2. PE. 3. Bladder cancer. 4. Depression. HOSPITAL COURSE: A 77-year-old male who has bladder cancer that is metastatic to the hip, on pain control, has had some anxiety and depression, and has been weak after recent diagnosis with a PE. He was admitted into a non-skilled swing bed for continuation of medications and care, and discharged to [facility] today on the . DISCHARGE MEDICATIONS: We will go home on; 1. 110 mg of Lovenox twice a day. 2. Dexamethasone 4 mg p.o. b.i.d. 3. Docusate 2 tablets b.i.d. 4. Duloxetine 60 mg a day. 5. Fentanyl 25 mcg every 3 days. 6. Furosemide 40 mg a day. 7. Lorazepam 0.5 mg every 6 hours p.r.n. 8. Metformin 850 mg once a day. 9. Zofran 8 mg t.i.d. p.r.n. 10.Oxycodone 10 mg q.i.d. p.r.n. 11.Trazodone 100 mg at bedtime. FOLLOWUP: Will see PCP next week. /[id number] HIEN/TERRY
== END 2018-01-15 15:00 | disposition home health service (06) | DRG 948 ==
LOC: FB.MS 10:18
PROVIDERS: ADMIT Family Medicine; ATTEND Family Medicine
DX: R53.1 Weakness (principal); C79.51 Secondary malignant neoplasm of bone; C67.9 Malignant neoplasm of bladder, unspecified; F32.9 Major depressive disorder, single episode, unspecified; F41.9 Anxiety disorder, unspecified; Z86.711 Personal history of pulmonary embolism; E11.9 Type 2 diabetes mellitus without complications; E66.9 Obesity, unspecified; M25.559 Pain in unspecified hip; R53.81 Other malaise; Z79.84 Long term (current) use of oral hypoglycemic drugs
CPT/HCPCS: 82962; A9270-GY; J1650; J8540

== ENCOUNTER 2018-01-20 21:23 | Emergency (ER) | payer MEDICARE, BC ==
[2018-01-20] MEDS ORDERED: Iopamidol 755 Mg/ML 100 ML Bottle IV ONE (21:40)
[2018-01-20] MEDS ORDERED: Furosemide 40 MG/4 ML VIAL IVPUSH ONE (23:24)
[2018-01-20] MEDS ORDERED: cefTRIAXone 1,000 MG in Sodium Chloride 0.9% 50 ML IV ONE (23:32)
[2018-01-20] MEDS ORDERED: Azithromycin 500 MG in Sodium Chloride 0.9% 250 ML IV ONE (23:32)
[2018-01-20] MEDS ORDERED: Sodium Chloride 0.9% 10 ML Syringe FLUSH PRN (23:37)
[2018-01-20] MEDS ORDERED: Levofloxacin/Dextrose 5%-Water 750 MG in Premix Bag 1 BAG IV ONE (23:48)
[2018-01-20] MEDS ORDERED: Ampicillin/Sulbactam Na 3 GM in Sodium Chloride 0.9% 100 ML IV ONE (23:48)
[2018-01-20] MEDS ORDERED: Levofloxacin/Dextrose 5%-Water 150 ML IV ONE (23:56)
[2018-01-21] MEDS ORDERED: Vancomycin 1,000 MG SDV ONE (00:02)
--- NOTE | 2018-01-21 00:42 | ER ---
DATE SEEN: 01/20/2018 CHIEF COMPLAINT: Shortness of breath. HISTORY OF PRESENT ILLNESS: This is a 77-year-old male with shortness of breath, progressively getting worse over the last 2 to 3 days. In addition, he has weakness and coughing up blood. Vidal was recently diagnosed with metastatic bladder cancer and a PE. He spent some time in the hospital in the swing bed and currently has been at the [facility]. Yesterday, he was seen in the oncology clinic, given an IV of normal saline and saline tablets because of hyponatremia. He also recently was started on Xarelto instead of Lovenox. REVIEW OF SYSTEMS: He denies fever. He has leg swelling and abdominal swelling. CURRENT MEDICATIONS: Please see the nurse's notes. SOCIAL HISTORY: He does not smoke or drink. PHYSICAL EXAMINATION: VITAL SIGNS: He has blood pressure 108/66, temperature of 97.3, heart rate 99, oxygenation 99% on 4 L. EARS, NOSE, AND THROAT: Negative. HEAD: Normal size. NECK: Supple. CARDIOVASCULAR: Normal. RESPIRATORY SYSTEM: Rales and creps bilaterally. EXTREMITIES: 2 to 3+ peripheral edema. ABDOMEN: Obese. LABORATORY DATA: White cell count is 15,000. Sodium 129 and potassium is normal. CT chest revealed some multiple septic emboli, possibly pneumonia. There are also metastases in the liver. IMPRESSION: 1. Septic emboli in the chest. 2. Bladder cancer, metastatic. PLAN: Two sets of blood cultures. Start Rocephin and azithromycin, Lasix IV, and I will send the patient over to the [facility] for further treatment. TIME SEEN: 2200 hours. /[id number] HIEN/TERRY
[2018-01-22 08:10] VITALS: BP 108/66
== END 2018-01-21 00:42 ==
LOC: FB.ED 21:23
DX: I76 Septic arterial embolism (principal); I26.90 Septic pulmonary embolism without acute cor pulmonale; C67.9 Malignant neoplasm of bladder, unspecified; C78.7 Secondary malignant neoplasm of liver and intrahepatic bile duct; Z79.01 Long term (current) use of anticoagulants
CPT/HCPCS: 36415; 71275; 80048; 83880; 84484; 85025; 87040; 93005; 96365; 96375; 99285; J1940; J1956; J7050; Q9967; 99284